=== PATIENT | female | born 1985 | race Caucasian/White ===

== ENCOUNTER → 2018-07-08 15:18 | Outpatient (CLI) | payer BC, SELFPAY ==
[2018-07-04 15:20] VITALS: BMI 37.3
[2018-07-10 16:50] LABS: HPV Reflexed? NOT INDICATED
== END ==
PROVIDERS: Visit Provider Obstetrics & Gynecology
DX: Z12.4 Encounter for screening for malignant neoplasm of cervix (principal)
CPT/HCPCS: 88175; G0145

== ENCOUNTER → 2019-12-15 21:15 | Outpatient (CLI) | payer BC, SELFPAY ==
[2019-12-15 18:57] VITALS: BMI 38.0
[2019-12-15 21:38] LABS: Absolute Lymphocyte Count 2.52 X10^3/uL (0.83-4.51); Absolute Neutrophil Count 3.1 X10^3/uL (2.0-7.7); Basophil# 0.03 X10^3/uL; Basophil% 0.5 % (0-1); Eosinophil# 0.16 X10^3/uL; Eosinophils% 2.5 % (0-5); Hematocrit 39.6 % (37-47); Hemoglobin 12.8 g/dL (12.0-15.0); Lymphocyte # 2.52 X10^3/ul (4.0); Lymphocyte % 39.9 % (19-41); Mean Corp Hgb Conc 32.3 g/dL (32-36); Mean Corpuscular Hgb 28.1 pg (27.0-32.0); Mean Platelet Vol. 10.2 fl (6.2-12.0); Monocyte# 0.53 X10^3/uL; Monocyte% 8.4 % (0-10); NRBC Flagged by Analyzer 0 % (0-5); Neutrophil # 3.05 X10^3/uL (2.7-7.7); Neutrophil % 48.4 % (47-70); Platelet Count 264 K/mm3 (150-450); RBC Distribution Width CV 12.3 % (11.6-14.6); RBC Distribution Width SD 38.8 fl (35.1-43.9); Red Blood Count 4.55 M/mm3 (4.2-5.4); White Blood Count 6.3 K/mm3 (4.4-11.0)
[2019-12-15 21:57] LABS: ALB/GLOB Ratio 1.1 RATIO (0.9-2.4); AST(SGOT) 13 U/L (15-37); Alanine Aminotransfer ALT/SGPT 26 U/L (13-56); Albumin, Serum 3.9 g/dL (3.2-5.0); Alkaline Phosphatase 62 U/L (45-117); Anion Gap 5 (5-15); BUN 11 mg/dL (7-18); Calcium,Total 9.1 mg/dL (8.5-10.1); Chloride 103 mmol/L (98-107); Creatinine, Serum 0.74 mg/dL (0.55-1.02); EST Glomerular Filtration Rate 97 mL/min (>60); Est Glom Filt Rate - Afr Amer 117 mL/min (>60); Globulin 3.4 g/dL (2.2-4.2); Glucose 87 mg/dL (74-106); Potassium 3.7 mmol/L (3.5-5.1); Protein, Total 7.3 g/dL (6.4-8.2); Sodium Level 138 mmol/L (136-145); Thyroid Stim Hormone (TSH) 1.67 uIU/mL (0.358-3.74)
== END ==
PROVIDERS: Visit Provider Nurse Practitioner
DX: R53.83 Other fatigue (principal); D51.9 Vitamin B12 deficiency anemia, unspecified; D64.9 Anemia, unspecified
CPT/HCPCS: 80053; 84443; 85025

== ENCOUNTER → 2020-06-01 13:19 | Outpatient (CLI) | payer BC, SELFPAY ==
[2020-06-04 21:03] LABS: HPV Reflexed? NOT INDICATED
== END ==
PROVIDERS: Visit Provider Obstetrics & Gynecology
DX: Z12.4 Encounter for screening for malignant neoplasm of cervix (principal)
CPT/HCPCS: 88175; G0145

== ENCOUNTER → 2022-03-29 | Outpatient (CLI) | payer OTHER, SELFPAY ==
[2022-03-29 22:47] LABS: Thyroid Stim Hormone (TSH) 1.34 uIU/mL (0.358-3.74)
[2022-03-31 16:28] LABS: EBV Acute VCA IgM < 36.0 U/mL (0.0-35.9); EBV-VCA IgG 57.4 U/mL (0.0-17.9)
== END | disposition home or self-care (01) ==
PROVIDERS: Visit Provider Nurse Practitioner
DX: H66.92 Otitis media, unspecified, left ear (principal); R13.10 Dysphagia, unspecified; R53.83 Other fatigue
CPT/HCPCS: 84443; 86664; 86665

== ENCOUNTER → 2023-03-14 | Outpatient (CLI) | payer OTHER, SELFPAY ==
--- OUTSIDE RECORDS SUMMARY | 2023-03-14 22:35 | XMS RPT_ITS | CCD ---
Author Name Unknown Address [address] [facility] [address] [place] [address] Organization [facility] Care Team Providers Care Manager Business Process Name Role Phone Mushtaq Rodríguez Unavailable Unavailable Martínez, Christen L Unavailable Unavailable Marky Mccord DO Primary Care Provider Unavail able Martínez, Christen Primary Care Provider Martínez, Christen Primary Care Provider Martínez, Christen Primary Care Unavailable Oz Salinas Attending Unavailable PROVIDER, UNKNOWN Referring Unavailable Martínez, Christen Primary Care Unavailable Tg Quinones Attending Unavailable PROVIDER, UNKNOWN Referring Unavailable PROVIDER, UNKNOWN Referring Unavailable Martínez, Christen Primary Care Unavailable CestaTalisha Attending Unavailable Martínez, Christen Primary Care Unavailable Cesta, Talisha Attending Unavailable PROVIDER, UNKNOWN Referring Unavailable PROVIDER, UNKNOWN Referring Unavailable Martínez, Christen Primary Care Unavailable Oz Salinas Attending Unavailable Martínez, Christen Primary Care Unavailable Amarilis Loya Attending Unavailable PROVIDER, UNKNOWN Referring Unavailable Martínez, Christen Primary Care Provider Martínez FAMILY LAWYER.Christen SWANSON Primary Care Provide r PROVIDER, UNKNOWN Referring Unavailable Cesta, Talisha Attending Unavailable Martínez, Christen Primary Care Unavailable PROVIDER, UNKNOWN Referring Unavailable STACIETG Herrera Attending Unavail able Martínez, Christen Primary Care Unavailable PROVIDER, UNKNOWN Referring Unavailable STACIETG Herrera Attending Unavail able Martínez, Christen Primary Care Unavailable PROVIDER, UNKNOWN Referring Unavailable Martínez, Christen Primary Care Unavailable Amarilis Loya Attending Unavailable PROVIDER, UNKNOWN Referring Unavailable STACIETG Attending Unavail able Martínez, Christen Primary Care Unavailable Martínez FAMILY [facility] Provide r PROVIDER, UNKNOWN Attending Unavailable PROVIDER, UNKNOWN Admitting Unavailable MARTÍNEZ, CHRISTEN Referring Unavailable Martínez, Christen Primary Care Provider Tg Quinones DO Unavailable Martínez, Christen Primary Care Provider [phone] Jessica Quinones DOth A Unavailable [phone] MARTÍNEZ, CHRISTEN L Primary Care Unavailable MARTÍNEZ, CHRISTEN L Primary Care Unavailable MARTÍNEZ, CHRISTEN L Primary Care Unavailable MARTÍNEZ, CHRISTEN Primary Care Unavailable GERJENNY ELIZABETH Attending Unavailable MARTÍNEZ, CHRISTEN Primary Care Unavailable GERJENNY ELIZABETH Attending Unavailable MARTÍNEZ, CHRISTEN Primary Care Unavailable JENNY LITTLEJOHN Attending Unavailable MARTÍNEZ, CHRISTEN Primary Care Unavailable JENNY LITTLEJOHN Attending Unavailable JEAN CLAUDERIJENNY ALMANZA Admitting Unavailable ESTHELA MEGHAN Referring Unavailable ANGELIC PROCTORIN Attending Unavailable MARTÍNEZ, CHRISTEN Primary Care Unavailable JENNY LITTLEJOHN Attending Unavailable MARTÍNEZ, CHRISTEN Primary Care Unavailable HELENA MAYBERRY Attending Unavailable FUNK, MARY ANN Referring Unavailable CESTA, TALISHA Referring Unavailable MARTÍNEZ, CHRISTEN Primary Care Unavailable JENNY LITTLEJOHN Attending Unavailable EDEN DELACRUZ Referring Unavailabl e JENNY LITTLEJOHN Referring Unavailable MARTÍNEZ, CHRISTEN Primary Care Unavailable GERJENNY ELIZABETH Attending Unavailable MARTÍNEZ, CHRISTEN Primary Care Unavailable GERJENNY ELIZABETH Attending Unavailable MARTÍNEZ, CHRISTEN Primary Care Unavailable TG QUINONES Attending Unavailable EDEN DELACRUZ Attending Unavailabl e MARTÍNEZ, CHRISTEN Primary Care Unavailable GERRIJENNY ALMANZA Attending Unavailable FUNK, MARY ANN Referring Unavailable MARTÍNEZ, CHRISTEN Primary Care Unavailable FUNK, MARY ANN Attending Unavailable FUNK, MARY ANN Attending Unavailable MARTÍNEZ, CHRISTEN Primary Care Unavailable FUNK, MARY ANN Referring Unavailable MARTÍNEZ, CHRISTEN Primary Care Unavailable FUNK, MARY ANN Attending Unavailable FUNK, MARY ANN Referring Unavailable MARTÍNEZ, CHRISTEN Primary Care Unavailable FUNK, MARY ANN Attending Unavailable MARTÍNEZ, CHRISTEN Primary Care Unavailable NJ GUIDRY Attending Unavailable TOBIN SKY Attending Unavailable FUNK, MARY ANN Referring Unavailable FUNK, MARY ANN Attending Unavailable MARTÍNEZ, CHRISTEN Primary Care Unavailable FUNK, MARY ANN Attending Unavailable MARTÍNEZ, CHRISTEN Primary Care Unavailable FUNK, MARY ANN Referring Unavailable JENNY LITTLEJOHN Attending Unavailable MARTÍNEZ, CHRISTEN Primary Care Unavailable EDEN DELACRUZ Referring Unavailabl e FUNK, MARY ANN Attending Unavailable MARTÍNEZ, CHRISTEN Primary Care Unavailable FUNK, MARY ANN Referring Unavailable MARTÍNEZ, CHRISTEN Primary Care Unavailable FUNK, MARY ANN Attending Unavailable Allergies Allergy Classification Reported Allergen(s) Allergy Type Date of Onset Reaction(s) Facility Quinolones (antibiotic) (1 source) levoFLOXacin Drug Allergy 01-15-20 19 Other (See Comments) [facility] (20 sources) levoFLOXacin; Translations: [LEVOFLOXACIN] Drug Allergy 01-15-20 Other (See Comments), Other: See Comments [facility] (20 sources) Verapamil Drug Allergy 06-30-19 Rash [facility] (15 sources) galcanezumab Drug Allergy 03-31-19 22 [facility] (15 sources) Sulfamethoxazole Drug Allergy 11-19-19 [facility] Work Phone: (20 sources) Trimethoprim Drug Allergy 11-19-19 [facility] Work Phone: (3 sources) predniSONE; Translations: [PREDNISONE] Drug Allergy 01-15-20 19 Hives, Other: See Comments [facility] (20 sources) Prednisone Propensity to adverse reactions 01-15-20 19 Hives [facility] (20 sources) Sulfamethoxazole Propensity to adverse reactions 11-19-19 [facility] (20 sources) Galcanezumab Propensity to adverse reactions 03-31-19 [facility] (14 sources) Clarithromycin Allergy to substance 06-02-19 23 [facility] (14 sources) SUMAtriptan Drug Allergy 06-05-19 21 [facility] (14 sources) Galcanezumab-Gnlm Drug Allergy 03-31-19 [facility] Medications Current Medications Medication Drug Class(es) Dates Sig (Normalized) Sig (Original) acetaminophen 325 mg / HYDROcodone bitartrate 5 mg oral tablet (1 source) Opioid Agonist Start: 12-19-2020 End: 12-24-2020 HYDROcodone-aceta minophen (NORCO) 5-325 MG per tablet Indications: Kidney stone Take 1 tablet by mouth every 6 hours as needed for Pain for up to 5 days. Intended supply: 3 days. Take lowest dose possible to manage pain 24 tablet 0 12/19/2020 12/24/2020 Active acetaminophen 325 mg / oxyCODONE hydrochloride 5 mg oral tablet (6 sources) Opioid Agonist Start: 01-09-2023 End: 01-20-2023 take 1 tablet by mouth every six hours as needed for pain oxyCODONE-acetami nophen (Percocet) 5-325 MG tablet Indications: Post-op pain Take 1 tablet by mouth every 6 hours as needed for severe pain (7-10) for up to 5 days. 15 tablet 0 01/15/2023 01/20/2023 Active Completed/Discontinued Medications Medication Drug Class(es) Dates Sig (Normalized) Sig (Original) acetaminophen 500 mg oral tablet (3 sources) Start: 01-09-2023 End: 01-09-2023 acetaminophen (Tylenol) tablet 1,000 mg Problems Active Problems Problem Classification Problem Date Documented Da te Episodic/Chronic Allergic reactions (5 sources) Anaphylaxis; Translations: [Anaphylactic shock, unspecified, initial encounter] Onset: 10-19-2021 Episodic Anxiety disorders (2 sources) Anxiety disorder, unspecified; Translations: [Anxiety disorder, unspecified] Onset: 10-12-2021 Chronic Asthma (2 sources) Unspecified asthma, uncomplicated; Translations: [Unspecified asthma, uncomplicated] Onset: 10-19-2021 Chronic Endometriosis (20 sources) Endometriosis (clinical); Translations: [Endometriosis, unspecified] Onset: 07-07-2021 07-07-2021 Chronic Genitourinary congenital anomalies (20 sources) Double ureter; 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] Onset: 10-05-2014 10-05-2014 Chronic Genitourinary symptoms and ill-defined conditions (4 sources) Urgency of urination; Translations: [Dysuria] Onset: 11-09-2021 Episodic Headache; including migraine (2 sources) Migraine, unspecified, not intractable, without status migrainosus; Translations: [Migraine, unsp, not intractable, without status migrainosus] Onset: 10-19-2021 Chronic Lymphadenitis (1 source) Generalized enlarged lymph nodes; Translations: [Generalized enlarged lymph nodes] Onset: 04-27-2022 Episodic Mood disorders (2 sources) Major depressive disorder, single episode, unspecified; Translations: [Major depressive disorder, single episode, unspecified] Onset: 10-12-2021 Chronic Mood disorders (2 sources) Mood disorders; Translations: [Depression, unspecified] Onset: 10-19-2021 Nausea and vomiting (11 sources) Postoperative nausea and vomiting; Translations: [Nausea with vomiting, unspecified] Onset: 01-01-2023 01-01-2023 Episodic Other aftercare (3 sources) Surgical follow-up; Translations: [Encounter for follow-up examination after completed treatment for conditions other than malignant neoplasm] 01-16-2023 Episodic Other aftercare (2 sources) Encounter for follow-up examination after completed treatment for conditions other than malignant neoplasm; Translations: [Encounter for follow-up examination after completed treatment for conditions other than malignant neoplasm] Onset: 02-13-2023 Episodic Other gastrointestinal disorders (1 source) Dysphagia, unspecified; Translations: [Dysphagia, unspecified] Onset: 04-27-2022 Episodic Other liver diseases (2 sources) Lesion of liver; Translations: [Liver disease, unspecified] Chronic Other liver diseases (4 sources) Liver disease, unspecified; Translations: [Liver disease, unspecified] Onset: 08-08-2021 Chronic Other liver diseases (2 sources) Fatty (change of) liver, not elsewhere classified; Translations: [Fatty (change of) liver, not elsewhere classified] Onset: 10-19-2021 Chronic Other liver diseases (2 sources) Hepatomegaly, not elsewhere classified; Translations: [Hepatomegaly, not elsewhere classified] Onset: 10-12-2021 Episodic Other nervous system disorders (3 sources) Postoperative pain ; Translations: [Other acute postprocedural pain] 01-09-2023 Episodic Other nervous system disorders (2 sources) Other acute postprocedural pain; Translations: [Other acute postprocedural pain] Onset: 01-09-2023 Episodic Other nutritional; endocrine; and metabolic disorders (20 sources) Body mass index 40+ - severely obese; Translations: [Body mass index (BMI) 40.0-44.9, adult] Onset: 10-05-2014 10-05-2014 Chronic Other nutritional; endocrine; and metabolic disorders (2 sources) Obesity, unspecified; Translations: [Obesity, unspecified] Onset: 10-19-2021 Chronic Other nutritional; endocrine; and metabolic disorders (2 sources) Body mass index (BMI) 39.0-39.9, adult; Translations: [Body mass index [BMI] 39.0-39.9, adult] Onset: 10-19-2021 Chronic Other nutritional; endocrine; and metabolic disorders (12 sources) Body mass index 30+ - obesity; Translations: [Body mass index (BMI) 38.0-38.9, adult] Onset: 10-05-2014 01-01-2023 Chronic Other upper respiratory disease (6 sources) Deviated nasal septum; Translations: [Deviated nasal septum] Onset: 01-09-2023 Episodic Other upper respiratory disease (5 sources) Hypertrophy of nasal turbinates; Translations: [Hypertrophy of nasal turbinates] Episodic Other upper respiratory disease (3 sources) Polyp of nasal cavity and/or nasal sinus; Translations: [Nasal polyp, unspecified] 11-16-2022 Episodic Other upper respiratory disease (1 source) Nasal mucosa dry; Translations: [Other specified disorders of nose and nasal sinuses] 02-13-2023 Episodic Other upper respiratory disease (2 sources) Other specified disorders of nose and nasal sinuses; Translations: [Other specified disorders of nose and nasal sinuses] Onset: 02-13-2023 Episodic Other upper respiratory disease (2 sources) Nasal polyp, unspecified; Translations: [Nasal polyp, unspecified] Onset: 01-09-2023 Episodic Other upper respiratory disease (2 sources) Hypertrophy of nasal turbinates; Translations: [Hypertrophy of nasal turbinates] Onset: 01-09-2023 Episodic Other upper respiratory disease (1 source) Deviated nasal septum; Translations: [Deviated nasal septum] Onset: 01-09-2023 Episodic Other upper respiratory infections (5 sources) Chronic maxillary sinusitis; Translations: [Chronic maxillary sinusitis] Onset: 01-09-2023 11-16-2022 Chronic Ovarian cyst (3 sources) Cyst of left ovary; Translations: [Unspecified ovarian cyst, left side] Onset: 12-05-2021 Episodic Poisoning by nonmedicinal substances (1 source) Bee sting; Translations: [Toxic effect of venom of bees, undetermined, initial encounter] Episodic Residual codes; unclassified (2 sources) Family history of ischemic heart disease and other diseases of the circulatory system; Translations: [Family hx of ischem heart dis and oth dis of the [facility]] Onset: 10-19-2021 Episodic Residual codes; unclassified (2 sources) Family history of diabetes mellitus; Translations: [Family history of diabetes mellitus] Onset: 10-19-2021 Episodic Residual codes; unclassified (2 sources) Family history of malignant neoplasm of other organs or systems; Translations: [Family history of malignant neoplasm of organs or systems] Onset: 10-19-2021 Episodic Residual codes; unclassified (1 source) History of drug therapy; Translations: [Personal history of other drug therapy] Episodic Unclassified (2 sources) New Patient; Translations: [New Patient] Onset: 06-20-2022 Past or Other Problems Problem Classification Problem Date Documented Da te Episodic/Chronic Abdominal pain (20 sources) Flank pain; Translations: [Unspecified abdominal pain] Onset: 01-03-2021 01-03-2021 Episodic Calculus of urinary tract (20 sources) Kidney stone; Translations: [Calculus of kidney] Onset: 01-03-2021 Episodic Gastritis and duodenitis (3 sources) Acute gastritis; Translations: [Acute gastritis without bleeding] Onset: 06-22-2022 Episodic Other and unspecified benign neoplasm (2 sources) Hemangioma of intra-abdominal structures; Translations: [Hemangioma of intra-abdominal structures] Onset: 09-13-2021 Episodic Other complications of (20 sources) Backache; Translations: [Back pain in ] Onset: 09-23-2014 09-23-2014 Episodic Other complications of (20 sources) depression; Translations: [Other mental disorders complicating the puerperium] Onset: 12-07-2014 12-07-2014 Episodic Other diseases of kidney and ureters (20 sources) Hydronephrosis; Translations: [Hydronephrosis with renal and ureteral calculous obstruction] Onset: 01-03-2021 Episodic Other diseases of kidney and ureters (12 sources) Hydronephrosis with renal and ureteral calculous obstruction; Translations: [Calculus of ureter] Onset: 01-03-2021 12-29-2021 Episodic Other diseases of kidney and ureters (2 sources) Unspecified hydronephrosis; Translations: [Unspecified hydronephrosis] Onset: 02-20-2022 Episodic Other gastrointestinal disorders (20 sources) Constipation; Translations: [Constipation, unspecified] Onset: 07-07-2021 07-07-2021 Episodic Other liver diseases (20 sources) Liver mass; Translations: [Hepatomegaly, not elsewhere classified] Onset: 10-19-2021 Episodic Other and delivery including normal (20 sources) Normal ; Translations: [Encounter for supervision of other normal , unspecified trimester] Onset: 09-23-2014 01-17-2015 Episodic Other screening for suspected conditions (not mental disorders or infectious disease) (20 sources) Cancer cervix screening status; Translations: [Encounter for screening for malignant neoplasm of cervix] Onset: 06-29-2022 Episodic Other upper respiratory infections (9 sources) Acute sinusitis; Translations: [Upper respiratory infection] Onset: 07-17-2022 Episodic Results Test Name Value Interpretation Reference Range Facil ity Vital Signs Date Time Vital Sign Value Performing Clinician Facility 02-13-2023 13:51-0500 Body height 160 cm Jenny Littlejohn MD Work Phone: [facility] 02-13-2023 13:51-0500 Body mass index (BMI) [Ratio] 35.96 kg/m2 Jenny Littlejohn MD Work Phone: [facility] 02-13-2023 13:51-0500 Body weight 92.08 kg Jenny Littlejohn MD Work Phone: [facility] 01-23-2023 10:34-0500 Body height 160 cm Jenny Littlejohn MD Work Phone: [facility] 01-23-2023 10:34-0500 Body mass index (BMI) [Ratio] 35.96 kg/m2 Jenny Littlejohn MD Work Phone: [facility] 01-23-2023 10:34-0500 Body weight 92.08 kg Jenny Littlejohn MD Work Phone: [facility] 01-16-2023 11:19-0400 Body height 160 cm Jenny Littlejohn MD Work Phone: [facility] 01-16-2023 11:19-0400 Body mass index (BMI) [Ratio] 35.96 kg/m2 Jenny Littlejohn MD Work Phone: [facility] 01-16-2023 11:19-0400 Body weight 92.08 kg Jenny Littlejohn MD Work Phone: [facility] 01-09-2023 12:15-0400 Diastolic blood pressure 81 mm[Hg] Jenny Litteljohn MD Work Phone: [facility] 01-09-2023 12:15-0400 Heart rate 68 /min Jenny Littlejohn MD Work Phone: [facility] 01-09-2023 12:15-0400 SaO2% (BldA) [Mass fraction] 100 % Jenny Littlejohn MD Work Phone: [facility] 01-09-2023 12:15-0400 Systolic blood pressure 136 mm[Hg] Jenny Littlejohn MD Work Phone: [facility] 01-09-2023 08:43-0400 Body height 160 cm Jenny Littlejohn MD Work Phone: [facility] 01-09-2023 08:43-0400 Body mass index (BMI) [Ratio] 38.97 kg/m2 Jenny Littlejohn MD Work Phone: [facility] 01-09-2023 08:43-0400 Body temperature 96.8 [degF] Jenny Littlejohn MD Work Phone: [facility] 01-09-2023 08:43-0400 Body weight 99.79 kg Jenny Littlejohn MD Work Phone: [facility] 01-09-2023 08:43-0400 Respiratory rate 17 /min Jenny Littlejohn MD Work Phone: [facility] 01-01-2023 09:33-0400 Body height 160 cm Mary Ann Burke PA Work Phone: [facility] 01-01-2023 09:33-0400 Body mass index (BMI) [Ratio] 38.92 kg/m2 Mary Ann Burke PA Work Phone: [facility] 01-01-2023 09:33-0400 Body weight 99.66 kg Mary Ann Burke PA Work Phone: [facility] 01-01-2023 09:33-0400 Diastolic blood pressure 81 mm[Hg] Mary Ann Burke PA Work Phone: [facility] 01-01-2023 09:33-0400 Heart rate 96 /min Mary Ann Burke PA Work Phone: [facility] 01-01-2023 09:33-0400 Systolic blood pressure 121 mm[Hg] Mary Ann Burke PA Work Phone: [facility] 11-16-2022 11:37-0400 Body height 160 cm Jenny Littlejohn MD Work Phone: [facility] 11-16-2022 11:37-0400 Body mass index (BMI) [Ratio] 38.95 kg/m2 Jenny Littlejohn MD Work Phone: [facility] 11-16-2022 11:37-0400 Body weight 99.75 kg Jenny Littlejohn MD Work Phone: [facility] 09-07-2022 10:30-0400 Body height 160 cm Jenny Littlejohn MD Work Phone: [facility] 09-07-2022 10:30-0400 Body mass index (BMI) [Ratio] 38.79 kg/m2 Jenny Littlejohn MD Work Phone: [facility] 09-07-2022 10:30-0400 Body weight 99.34 kg Jenny Littlejohn MD Work Phone: [facility] 06-29-2022 10:09-0400 Body height 160 cm Mary Ann Burke PA Work Phone: [facility] 06-29-2022 10:09-0400 Body mass index (BMI) [Ratio] 40.57 kg/m2 Mary Ann Burke PA Work Phone: [facility] 06-29-2022 10:09-0400 Body weight 103.87 kg Mary Ann Burke PA Work Phone: [facility] 06-29-2022 10:09-0400 Diastolic blood pressure 85 mm[Hg] Mary Ann Burke PA Work Phone: [facility] 06-29-2022 10:09-0400 Heart rate 77 /min Mary Ann Burke PA Work Phone: [facility] 06-29-2022 10:09-0400 Systolic blood pressure 118 mm[Hg] Mary Ann Burke PA Work Phone: [facility] 06-22-2022 10:32-0400 Diastolic blood pressure 68 mm[Hg] Nj Mudrakola DO Work Phone: [facility] 06-22-2022 10:32-0400 Heart rate 81 /min Nj Mudrakola DO Work Phone: [facility] 06-22-2022 10:32-0400 SaO2% (BldA) [Mass fraction] 100 % Nj Mudrakola DO Work Phone: [facility] 06-22-2022 10:32-0400 Systolic blood pressure 111 mm[Hg] Nj Mudrakola DO Work Phone: [facility] 06-22-2022 09:00-0400 Body height 160 cm Nj Mudrakola DO Work Phone: [facility] 06-22-2022 09:00-0400 Body mass index (BMI) [Ratio] 40.57 kg/m2 Nj Mudrakola DO Work Phone: [facility] 06-22-2022 09:00-0400 Body temperature 97.39 [degF] Nj Mudrakola DO Work Phone: [facility] 06-22-2022 09:00-0400 Body weight 103.87 kg Nj Mudrakola DO Work Phone: [facility] 06-22-2022 09:00-0400 Respiratory rate 16 /min Nj Mudrakola DO Work Phone: [facility] 06-20-2022 09:57-0400 Body height 160 cm Jenny Littlejohn MD Work Phone: [facility] 06-20-2022 09:57-0400 Body mass index (BMI) [Ratio] 40.57 kg/m2 Jenny Littlejohn MD Work Phone: [facility] 06-20-2022 09:57-0400 Body weight 103.87 kg Jenny Littlejohn MD Work Phone: [facility] 03-26-2022 09:34-0500 Body height 160 cm Barbie Slabaugh PA-C Work Phone: [facility] 03-26-2022 09:34-0500 Body temperature 98.01 [degF] Barbie Slabaugh PA-C Work Phone: [facility] 03-26-2022 09:34-0500 Body weight 104.33 kg Barbie Slabaugh PA-C Work Phone: [facility] 03-26-2022 09:34-0500 Diastolic blood pressure 78 mm[Hg] Barbie Slabaugh PA-C Work Phone: [facility] 03-26-2022 09:34-0500 Heart rate 89 /min Barbie Slabaugh PA-C Work Phone: [facility] 03-26-2022 09:34-0500 Respiratory rate 16 /min Barbie Slabaugh PA-C Work Phone: [facility] 03-26-2022 09:34-0500 SaO2% (BldA) [Mass fraction] 97 % Barbie Slabaugh PA-C Work Phone: [facility] 03-26-2022 09:34-0500 Systolic blood pressure 125 mm[Hg] Barbie Slabaugh PA-C Work Phone: [facility] 01-05-2022 10:42-0400 Body height 160 cm Hilda Tsai APRN.CNP Work Phone: [facility] 01-05-2022 10:42-0400 Body temperature 97.5 [degF] Hilda Tsai FAMILY LAWYER.TREATMENT SPECIALIST Work Phone: [facility] 01-05-2022 10:42-0400 Body weight 101.15 kg Hilda Tsai FAMILY LAWYER.TREATMENT SPECIALIST Work Phone: [facility] 01-05-2022 10:42-0400 Diastolic blood pressure 72 mm[Hg] Hilda Tsai FAMILY LAWYER.TREATMENT SPECIALIST Work Phone: [facility] 01-05-2022 10:42-0400 Heart rate 89 /min Hilda Tsai FAMILY LAWYER.TREATMENT SPECIALIST Work Phone: [facility] 01-05-2022 10:42-0400 Respiratory rate 16 /min Hilda Tsai FAMILY LAWYER.TREATMENT SPECIALIST Work Phone: [facility] 01-05-2022 10:42-0400 SaO2% (BldA) [Mass fraction] 97 % Hilda Tsai FAMILY LAWYER.TREATMENT SPECIALIST Work Phone: [facility] 01-05-2022 10:42-0400 Systolic blood pressure 115 mm[Hg] Hilda Tsai FAMILY LAWYER.TREATMENT SPECIALIST Work Phone: [facility] 10-19-2021 16:30-0400 Diastolic blood pressure 87 mm[Hg] Oz Salinas MD Work Phone: [facility] 10-19-2021 16:30-0400 Heart rate 72 /min Oz Salinas MD Work Phone: [facility] 10-19-2021 16:30-0400 Respiratory rate 20 /min Oz Salinas MD Work Phone: [facility] 10-19-2021 16:30-0400 SaO2% (BldA) [Mass fraction] 95 % Oz Salinas MD Work Phone: [facility] 10-19-2021 16:30-0400 Systolic blood pressure 118 mm[Hg] Oz Salinas MD Work Phone: [facility] 10-19-2021 10:49-0400 Body height 160 cm Oz Salinas MD Work Phone: [facility] 10-19-2021 10:49-0400 Body mass index (BMI) [Ratio] 39.33 kg/m2 Oz Salinas MD Work Phone: [facility] 10-19-2021 10:49-0400 Body temperature 98.2 [degF] Oz Salinas MD [facility]: [facility] [facility] 10-19-2021 10:49-0400 Body weight 100.7 kg Oz Salinas MD Work Phone: [facility] 10-12-2021 10:01-0400 Body temperature 97 [degF] Oz Salinas MD Work Phone: [facility] 10-12-2021 10:01-0400 Diastolic blood pressure 82 mm[Hg] Oz Salinas MD Work Phone: [facility] 10-12-2021 10:01-0400 Heart rate 90 /min Oz Salinas MD Work Phone: [facility] 10-12-2021 10:01-0400 SaO2% (BldA) [Mass fraction] 97 % Oz Salinas MD Work Phone: [facility] 10-12-2021 10:01-0400 Systolic blood pressure 105 mm[Hg] Oz Salinas MD Work Phone: [facility] 10-12-2021 09:45-0400 Body height 160 cm Oz Salinas MD Work Phone: [facility] 10-12-2021 09:45-0400 Body mass index (BMI) [Ratio] 39.33 kg/m2 Oz Salinas MD Work Phone: [facility] 10-12-2021 09:45-0400 Body weight 100.7 kg Oz Salinas MD Work Phone: [facility] 12-19-2020 05:20-0400 Diastolic blood pressure 57 mm[Hg] Rickey Bond MD Work Phone: [facility] Work Phone: 12-19-2020 05:20-0400 Heart rate 65 /min Rickey Bond MD Work Phone: [facility] Work Phone: 12-19-2020 05:20-0400 Respiratory rate 16 /min Rickey Bond MD Work Phone: [facility] Work Phone: 12-19-2020 05:20-0400 SaO2% (BldA) [Mass fraction] 100 % Rickey Bond MD Work Phone: [facility] Work Phone: 12-19-2020 05:20-0400 Systolic blood pressure 109 mm[Hg] Rickey Bond MD Work Phone: [facility] Work Phone: 12-19-2020 03:29-0400 Body temperature 98.29 [degF] Rickey Bond MD Work Phone: [facility] Work Phone: 10-06-2020 15:23-0400 Diastolic blood pressure 71 mm[Hg] Jonathan Julieta DO Work Phone: [facility] Work Phone: 10-06-2020 15:23-0400 Heart rate 100 /min Jonathan Julieta DO Work Phone: [facility] Work Phone: 10-06-2020 15:23-0400 Respiratory rate 12 /min Jonathan Julieta DO Work Phone: [facility] Work Phone: 10-06-2020 15:23-0400 SaO2% (BldA) [Mass fraction] 100 % Jonathan Julieta DO Work Phone: [facility] Work Phone: 10-06-2020 15:23-0400 Systolic blood pressure 132 mm[Hg] Jonathan Julieta DO Work Phone: [facility] Work Phone: 10-06-2020 13:36-0400 Body height 160 cm Jonathan Julieta DO Work Phone: [facility] Work Phone: 10-06-2020 13:36-0400 Body mass index (BMI) [Ratio] 37.2 kg/m2 Jonathan Julieta DO Work Phone: [facility] Work Phone: 10-06-2020 13:36-0400 Body temperature 98.1 [degF] Jonathan Julieta DO Work Phone: [facility] Work Phone: 10-06-2020 13:36-0400 Body weight 95.25 kg Jonathan Julieta DO Work Phone: [facility] Work Phone: 03-21-2019 11:20-0500 BMI (Body Mass Index) 38.44 kg/m2 Mushtaq Rod[facility]guez [facility] Work Phone: 03-21-2019 11:20-0500 Body Temperature 98.3 [degF] Mushtaq Rodríguez [facility] Work Phone: 03-21-2019 11:20-0500 Body weight 98.43 kg Mushtaqsobia Rodríguez [facility] Work Phone: 03-21-2019 11:20-0500 BP Diastolic 75 mm[Hg] Mushtaq Rodríguez [facility] Work Phone: 03-21-2019 11:20-0500 BP Systolic 110 mm[Hg] Mushtaq Rodríguez [facility] Work Phone: 03-21-2019 11:20-0500 BSA (Body Surface Area) 2 m2 Mushtaq Rodríguez [facility] Work Phone: 03-21-2019 11:20-0500 Height 160.02 cm Mushtaq Rodríguez [facility] Work Phone: 03-21-2019 11:20-0500 Pulse (Heart Rate) 95 /min Mushtaq Rodríguez [facility] Work Phone: 03-21-2019 11:20-0500 Pulse Oximetry 97 % Mushtaq Rodríguez [facility] Work Phone: 03-21-2019 11:20-0500 Respiratory Rate 16 /min Mushtaq Rodríguez [facility] Work Phone: 03-21-2019 11:20-0500 6 1 Mushtaq Rodríguez [facility] Work Phone: Encounters Encounter Date Encounter Type Care Provider Facility Start: 02-13-2023 End: 02-13-2023 ambulatory [facility] Start: 02-13-2023 End: 02-13-2023 Postop follow up visit related to original px Jenny Littlejohn MD Work Phone: [facility] Procedures Date Procedure Procedure Detail Performing Clinician Start: 01-16-2023 Follow-up visit Follow-up JENNY LITTLEJOHN Start: 01-09-2023 [place] AN ELECTIVE ENDOTRACHEAL AIRWAY Derek Min FAMILY LAW[employer]ER [employer] Work Phone: Start: 01-09-2023 Urine test visual color cmprsn meths Deon Slater FAMILY LAW[employer]ER [employer] CLOSING SPECIALIST Work Phone: Start: 08-07-2022 Microscopic observation [Identifier] in Cervix by Cyto stain Katelyn Coto PT Start: 07-17-2022 Ct maxillofacial w/o contrast material Jenny Littlejohn MD Work Phone: Start: 06-22-2022 Basic metabolic panel calcium total Nj Mudrakola DO Work Phone: Start: 06-22-2022 Urinalysis complete panel - Urine Nj Mudrakola DO Work Phone: Start: 06-22-2022 Urine test visual color cmprsn meths Nj Mudrakola DO Work Phone: Start: 06-22-2022 Urnls dip stick/tablet reagent auto microscopy Nj Guidry DO Work Phone: Start: 12-05-2021 Us transvaginal Talisha Estevez MD Work Phone: Start: 10-19-2021 CATHY STUDIO 3 Oz Salinas MD Work Phone: Start: 10-19-2021 Urine test visual color cmprsn meths Sivakumar Schmidt MD Work Phone: Start: 10-12-2021 Antibody screen Oz Salinas MD Work Phone: Start: 10-12-2021 Radiologic exam chest 2 views Jennifer Jonas FAMILY LAWYER - TREATMENT SPECIALIST Work Phone: Start: 10-12-2021 Ecg routine ecg w/least 12 lds w/i&r Jennifer Jonas FAMILY LAWYER - TREATMENT SPECIALIST Work Phone: Start: 10-12-2021 Blood count complete automated Jennifer Jonas FAMILY LAWYER - TREATMENT SPECIALIST Work Phone: Start: 10-12-2021 Blood typing serologic abo Jennifer Neena bess FAMILY LAWYER - TREATMENT SPECIALIST Work Phone: Start: 10-03-2021 Us transvaginal Talisha Estevez MD Work Phone: Start: 09-13-2021 Mri abdomen w/o & w/contrast material Amarilis Loya FAMILY LAWYER - TREATMENT SPECIALIST Work Phone: Start: 08-08-2021 Hepatic function panel Amarilis Loya AP RN - TREATMENT SPECIALIST Work Phone: Start: 08-01-2021 Ct abdomen & pelvis w/o contrast material Tg Quinones DO Work Phone: Start: 07-20-2021 Urnls dip stick/tablet rgnt auto w/o microscopy Tg Quinones DO Work Phone: Start: 07-18-2021 Radiologic exam abdomen 1 view Tg Quinones DO Work Phone: Start: 07-18-2021 Us retroperitoneal real time w/image complete Tg Quinones DO Work Phone: Start: 01-06-2021 Radiologic exam abdomen 1 view Tg Quinones DO Work Phone: Start: 01-06-2021 Us retroperitoneal real time w/image complete Tg Quinones DO Work Phone: Start: 12-19-2020 Ct abdomen & pelvis w/o contrast material Rickey Bond MD Work Phone: Start: 12-19-2020 Basic metabolic panel calcium total Rickey Bond MD Work Phone: Start: 12-19-2020 Urnls dip stick/tablet rgnt auto w/o microscopy Rickey Bond MD Work Phone: Start: 03-21-2019 Follow-up visit Start: 10-05-2014 End: 10-20-2014 H/O: section Previous delivery affecting , antepartum Jonathan Rendon DO Work Phone: Start: 01-09-2014 Microscopic observation [Identifier] in Cervix by Cyto stain Rickey Bond MD Work Phone: Plan of Treatment Date Care Activity Detail Author Start: 2047 RSV Immunization aged 60 or older (1 - 1-dose 60+ series) RSV Immunization aged 60 or older (1 - 1-dose 60+ series) [facility] Start: 2037 Zoster Vaccines (1 of 2) Zoster Vaccines (1 of 2) [facility] Start: 08-08-2027 Screening for malignant neoplasm of cervix [facility] Start: 08-07-2025 Screening for malignant neoplasm of cervix Pap Smear [facility] Start: 08-03-2024 DTaP/Tdap/Td vaccine (3 - Td or Tdap) DTaP/Tdap/Td vaccine (3 - Td or Tdap) [facility] Start: 08-03-2024 DTaP/Tdap/Td Vaccines (3 - Td or Tdap) DTaP/Tdap/Td Vaccines (3 - Td or Tdap) [facility] Start: 08-03-2024 Urine microalbumin profile DTAP,TDAP,TD (3 - Td or Tdap) [facility] Start: 08-23-2023 End: 08-23-2023 Patient encounter procedure 08/23/2023 9:00 AM EDT Office Visit [facility] [address] [place] [address] Helena Mayberry MD [address] [place] [address] [facility] Start: 08-09-2023 End: 08-09-2023 Patient encounter procedure [facility] Start: 07-23-2023 End: 07-23-2023 Patient encounter procedure [facility] [address] [facility] Start: 04-05-2023 End: 04-05-2023 Patient encounter procedure 04/05/2023 9:30 AM EST Office Visit [facility] [address] [place] [phone] Talisha Estevez MD [address] [place], [place] [id number] [facility] Start: 03-26-2023 End: 03-26-2023 Patient encounter procedure 03/26/2023 9:00 AM EST Office Visit [facility] [address] [place] [phone] Jenny Littlejohn MD [address] [place], [place] [id number] [facility] Start: 02-19-2023 End: 02-19-2023 Patient encounter procedure 02/19/2023 10:30 AM EST Office Visit [facility] [address] [place] [address] Jenny Littlejohn MD [address] [place], [place] [id number] [facility] Start: 02-13-2023 End: 02-13-2023 Patient encounter procedure 02/13/2023 2:00 PM EST Office Visit [facility] [address] [place] [phone] Jenny Littlejohn MD [address] [place], [place] [id number] [facility] Start: 02-07-2023 End: 02-07-2023 Patient encounter procedure 02/07/2023 9:10 AM EST Office Visit [facility] [address] [place] [address] Dami Rand MD [address] [place] [address] [facility] Start: 01-23-2023 End: 01-23-2023 Patient encounter procedure 01/23/2023 10:45 AM EST Office Visit [facility] [address] [place] [address] Jenny Littlejohn MD [address] [place], [place] [id number] [facility] Start: 01-16-2023 End: 01-16-2023 Patient encounter procedure 01/16/2023 11:15 AM EDT Office Visit [facility] [address] [place] [address] Jenny Littlejohn MD [address] [place], [place] [id number] [facility] Start: 01-11-2023 End: 01-11-2023 Patient encounter procedure 01/11/2023 11:00 AM EDT Office Visit [facility] [address] [place] [address] Jenny Littlejohn MD [address] [place] [address] [facility] Start: 01-09-2023 End: 01-09-2023 Admission to same day surgery center 01/09/2023 9:30 AM EDT - 01/09/2023 10:30 AM EDT Surgery [facility] [place] [address] [place] [address] Jenny Littlejohn MD [address] [place] [address] nasal septal reconstruction with bilateral inferior turbinate reduction; functional endoscopic sinus surgery maxillary, frontal, bundle nasal/sinus endocopy, total ethmoidectomy, sphenoidotomy removal from sphenoid sinus [48597 (CPT )] [facility] [place] Immunizations Immunization Date Immunization Notes Care Provider Fa cility 12-28-2021 influenza virus vacc ine, unspecified formulation Jenny Littlejohn MD Work Phone: [facility] 08-03-2014 tetanus toxoid, redu kandice diphtheria toxoid, and acellular pertussis vaccine, adsorbed Jonathan Rendon DO Work Phone: [facility] 02-11-2013 tetanus toxoid, redu kandice diphtheria toxoid, and acellular pertussis vaccine, adsorbed Hilda Tsai APRN.CNP Work Phone: [facility] Payers Date Payer Category Payer Unknown [id number] 2020 Unknown 2014 Unknown [facility] [id number] 2014-Present [phone] [address] [place] [address] [id number] 1987 Unknown [id number] 1987 Unknown [id number] [id number]. 1987 Unknown [id number] [id number]. 1987 Unknown [id number] [id number]. 1987 Unknown [id number] [id number]. 1987 Unknown [id number] [id number]. 1987 Unknown [id number] [id number]. 1987 Unknown [id number] [id number]. 1987 Unknown [id number] [id number]. 1987 Unknown [id number] [id number]. 1987 Unknown [id number] [id number] 1987 Unknown [id number] Social History Date Type Detail Facility Assertion Unknown if ever smoked [facility] Work Phone: Start: 10-06-2020 End: 07-13-2022 Tobacco smoking status GAIS Never smoker [facility] Work Phone: Start: 10-06-2020 End: 07-13-2022 Tobacco use and exposure Never used [facility] Start: 10-06-2020 End: 01-05-2022 Alcohol intake Current non-drinker of alcohol (finding) [facility] Work Phone: Start: 02-06-1986 Sex Assigned At Not on file [facility] Work Phone: Start: 06-27-2021 End: 07-17-2022 Exposure to SARS-CoV-2 (event) Not sure [facility] Start: 10-12-2021 End: 12-29-2021 Alcohol intake Current drinker of alcohol (finding) [facility] Work [facility]: Start: 10-12-2021 History SDOH Alcohol Comment rarely [facility] Work Phone: Start: 03-07-2022 End: 01-09-2023 Alcohol intake Ex-drinker (finding) [facility] Start: 08-07-2022 End: 02-13-2023 History of Social function [facility] Start: 08-07-2022 End: 02-13-2023 Tobacco use panel [facility] NEGATED: Highlighted rowStart: NINF History of tobacco use Passive smoker [facility] Functional Status Date Assessment Result Facility NEGATED: Highlighted row Functional performance Functional status health issues are not documented Disease [facility] Work Phone: Mental Status Date Assessment Result Facility NEGATED: Highlighted row Cognitive function [Interpretation] Cognitive status health issues are not documented Disease [facility] Work Phone: Clinical Notes 10-06-2020 to 02-13-2023 Addendum Note - JOANNE Quiroz CRNA - 02/13/2023 2:41 PM ESTAddendum Note - JOANNE Quiroz CRNA - 02/13/2023 2:41 PM Cesar Littlejohn MD - 02/13/2023 2:00 PM EST Note Date & Type Note Facility 02-13-2023 Note Addendum created 1441 by JOANNE Quiroz CRNA Intraprocedure Meds edited, Orders acknowledged in Narrator [facility] 02-13-2023 Note Formatting of this n ote is different from the original. Addendum created 02/13/23 1441 by JOANNE Quiroz CRNA Intraprocedure Meds edited, Orders acknowledged in Narrator [facility] 02-13-2023 Note Formatting of this n ote is different from the original. Addendum created 02/13/23 1441 by JOANNE Quiroz CRNA Intraprocedure Meds edited, Orders acknowledged in Narrator [facility] 02-13-2023 Miscellaneous Notes Addendum created 02/13/23 1441 by JOANNE Quiroz CRNA Intraprocedure Meds edited, Orders acknowledged in Narrator Patient: Joie Young Procedure Summary Date: 01/09/23 Room / Location: [place] [facility] Anesthesia Start: 904 Anesthesia Stop: 1031 Procedures: nasal septal reconstruction with bilateral inferior turbinate reduction; functional endoscopic sinus surgery maxillary, frontal, bundle nasal/sinus endocopy, total ethmoidectomy, sphenoidotomy removal from sphenoid sinus (Bilateral: Nose) SUBMUCOUS RESECTION INFERIOR TURBINATE (Bilateral: Nose) NASAL SINUS ENDOCOPY TOTAL INCLUDING SPHENOIDOTOMY WITH REMOVAL TISSUE FROM SPHENOID SINUS (Bilateral) Diagnosis: Chronic maxillary sinusitis Nasal polyp, unspecified Hypertrophy of nasal turbinates Deviated nasal septum (Chronic maxillary sinusitis [J32.0]) (Nasal polyp, unspecified [J33.9]) (Hypertrophy of nasal turbinates [J34.3]) (Deviated nasal septum [J34.2]) Surgeons: Jenny Littlejohn MD Responsible Provider: No Anesthesiologist - [facility]/MD Shaun Anesthesia Type: general, TIVA ASA Status: 3 Anesthesia Type: general, TIVA Vitals Value Taken Time BP 95/52 01/09/23 1032 Temp 97.5 01/09/23 1035 Pulse 63 01/09/23 1034 Resp 14 01/09/23 1035 SpO2 97 % 01/09/23 1034 Vitals shown include unfiled device data. Anesthesia Post Evaluation Patient location during evaluation: PACU Patient participation: complete - patient participated Level of consciousness: awake and alert Pain management: satisfactory to patient Airway patency: patent Dental Injury: no Cardiovascular status: acceptable, blood pressure returned to baseline and hemodynamically stable Respiratory status: acceptable and spontaneous ventilation Hydration status: euvolemic Nausea/Vomiting: controlled No notable events documented. Patient can be discharged once all PACU criteria has been met. documented in this encounter [facility] 02-13-2023 History of Presen t illness Narrative Assessment and Recommendations: Joie Young is a 37 y.o. female here for 1 month follow-up from endoscopic sinus surgery -Overall patient feeling well and pleased the result we will start her on topical antibiotic rinses to help alleviate her nasal dryness crusting all of her questions and concerns were answered today we will see her back in 6 weeks for follow-up Otol[facility] Clinic Note HPI: Joie Young is a 37 y.o. yo female who presents to clinic today for 4-week follow-up from endoscopic sinus surgery. Overall patient is doing well feels much better since surgery feels like she is having less facial pain and pressure is able to breathe well through her nose and denies any purulent drainage. No concerns today. PMH: Past Medical History: Diagnosis Date ADHD Asthma BMI 36.0-36.9,adult Depression Double ureter Left Endometriosis History of blood transfusion 2013 when she had daughter Liver mass Migraine Allergies: Allergies Allergen Reactions Clarithromycin Other reaction(s): N&V Galcanezumab Other reaction(s): rash and stomach aches for 48 hrs Sulfamethoxazole Other reaction(s): DIARRHEA AND HEADACHES Sumatriptan Other reaction(s): hung over, hung over Trimethoprim Other reaction(s): DIARRHEA AND HEADACHES Verapamil Rash Galcanezumab-Gnlm Levofloxacin Other reaction(s): Other (See Comments), Other (See Comments), Other: See Comments Leg swelling Prednisone Hives Able to take- just not in high doses Medications: Current Outpatient Medications: albuterol 0.63 MG/3ML nebulizer solution, 0.63 MG (3 mL) inhaled every 4 hours As Needed for shortness of breath or wheezing, Disp: , Rfl: albuterol 108 (90 Base) MCG/ACT inhaler, 2 PUFF INHALATION EVERY 4 HOURS As Needed for shortness OF breath or FOR WHEEZING, Disp: , Rfl: clonazePAM (KlonoPIN) 0.5 MG tablet, Take 0.5 mg by mouth every morning., Disp: , Rfl: EPINEPHrine (Epipen) 0.3 MG/0.3ML injection syringe, 0.3 mg (0.3 mL) intramuscularly once for allergic reactions; as a single dose; may repeat once, Disp: , Rfl: ketorolac (Sprix) nasal, Administer 1 spray into each nostril every 8 hours as needed for moderate pain (4-6)., Disp: 5 each, Rfl: 3 mometasone (Nasonex) 50 MCG/ACT nasal spray, Administer 2 sprays into each nostril 2 times daily., Disp: 17 g, Rfl: 11 Nurtec 75 MG tablet dispersible, 75 mg PO ONCE As Needed for migraine headache; may take everyother day for migriane, Disp: , Rfl: ondansetron (Zofran) 8 MG tablet, Take 8 mg by mouth in the morning and 8 mg in the evening., Disp: , Rfl: SEMAGLUTIDE,0.25 OR 0.5MG/DOS, SC, , Disp: , Rfl: Slynd 4 MG tablet, Take 1 tablet by mouth daily Take 1 active tablet daily, do not take placebo pills. Start taking next pack immediately., Disp: 28 tablet, Rfl: 11 famotidine (Pepcid) 20 MG tablet, Take 1 tablet (20 mg) by mouth 2 times daily for 15 days., Disp: 30 tablet, Rfl: 0 sertraline (Zoloft) 100 MG tablet, Take 50 mg by mouth daily., Disp: , Rfl: PSH: Past Surgical History: Procedure Laterality Date SECTION (HISTORICAL) 04/19/2013 Dr. Boggs SECTION, LOW TRANSVERSE 10/14/2013 Dr Vanessa LAPAROSCOPY DIAGNOSTIC / BIOPSY / ASPIRATION / LYSIS x3 For endometriosis OVARIAN CYST REMOVAL Bilateral 03/19/2004 TONSILLECTOMY (HISTORICAL) FH: Family History Problem Relation Name Age of Onset Hypertension Father Cancer Maternal Grandfather blood cancer Diabetes Father Colon cancer Neg Hx SH: Social History Socioeconomic History Marital status: Spouse name: Not on file Number of children: Not on file Years of education: Not on file Highest education level: Not on file Occupational History Not on file Tobacco Use Smoking status: Never Passive exposure: Never Smokeless tobacco: Never Vaping Use Vaping Use: Never used Substance and Sexual Activity Alcohol use: Not Currently Drug use: No Sexual activity: Yes control/protection: OCP Other Topics Concern Not on file Social History Narrative Not on file Social Determinants of Health Financial Resource Strain: Not on file Food Insecurity: Not on file Transportation Needs: Not on file Physical Activity: Not on file Stress: Not on file Social Connections: Not on file Intimate Partner Violence: Not on file Housing Stability: Not on file Physical Exam: Constitutional: General: Patient is not in acute distress. Appearance: Patient is well-developed. Eyes: Conjunctiva/sclera: Conjunctivae normal. Pupils: Pupils are equal, round, and reactive to light. HENT: Jaw: No trismus. Nose: No nasal deformity, mucosal edema or rhinorrhea. Mouth: Mucous membranes are not pale, not dry and not cyanotic. No oral lesions. Pharynx: Uvula midline. No oropharyngeal exudate or uvula swelling. Tonsils: No tonsillar exudate. No abnormal masses or lesions Thyroid: No significant thyromegaly. Trachea: Trachea and phonation normal. No tracheal deviation. Pulmonary: Effort: Pulmonary effort is normal. No respiratory distress. Breath sounds: No stridor. Musculoskeletal: Head: Normocephalic and atraumatic. Neck: Full passive range of motion without pain, neck supple. Skin: General: Skin is warm and dry. Findings: No erythema or rash. Neurological: Cranial Nerves: No cranial nerve deficit. Sensory: No sensory deficit. Coordination: Coordination normal. Extremities: No significant peripheral edema or varicosities Psychiatric: Mood and Affect: Mood and affect normal. Cognition and Memory: Cognition and memory normal. Flexible nasal endoscopy form revealing well-healed postsurgical sinonasal cavities with some crusting in the anterior nasal cavity bilaterally no signs of any infection documented in this encounter [facility] 01-23-2023 History of Presen t illness Narrative Assessment and Recommendations: Joie Chaw is a 37 y.o. female here for 2-week follow-up from endoscopic sinus surgery Patient is healing well and pleased the result-we will follow-up in 4 weeks all of her question concerns were answered and she expressed understanding Otolaryngology Head and Neck Surgery Clinic Note HPI: Joie Young is a 37 y.o. yo female who presents to clinic today for 2 week follow-up from [facility]. Patient is doing much better than the first week she does endorse she is able to breathe through her nose still having some pressure on the right side but overall it is getting much better. No other concerns or questions today PMH: Past Medical History: Diagnosis Date ADHD Asthma BMI 36.0-36.9,adult Depression Double ureter Left Endometriosis History of blood transfusion 2013 when she had daughter Liver mass Migraine Allergies: Allergies Allergen Reactions Clarithromycin Other reaction(s): N&V Galcanezumab Other reaction(s): rash and stomach aches for 48 hrs Sulfamethoxazole Other reaction(s): DIARRHEA AND HEADACHES Sumatriptan Other reaction(s): hung over, hung over Trimethoprim Other reaction(s): DIARRHEA AND HEADACHES Verapamil Rash Galcanezumab-Gnlm Levofloxacin Other reaction(s): Other (See Comments), Other (See Comments), Other: See Comments Leg swelling Prednisone Hives Able to take- just not in high doses Medications: Current Outpatient Medications: albuterol 0.63 MG/3ML nebulizer solution, 0.63 MG (3 mL) inhaled every 4 hours As Needed for shortness of breath or wheezing, Disp: , Rfl: albuterol 108 (90 Base) MCG/ACT inhaler, 2 PUFF INHALATION EVERY 4 HOURS As Needed for shortness OF breath or FOR WHEEZING, Disp: , Rfl: clonazePAM (KlonoPIN) 0.5 MG tablet, Take 0.5 mg by mouth every morning., Disp: , Rfl: EPINEPHrine (Epipen) 0.3 MG/0.3ML injection syringe, 0.3 mg (0.3 mL) intramuscularly once for allergic reactions; as a single dose; may repeat once, Disp: , Rfl: ketorolac (Sprix) nasal, Administer 1 spray into each nostril every 8 hours as needed for moderate pain (4-6)., Disp: 5 each, Rfl: 3 mometasone (Nasonex) 50 MCG/ACT nasal spray, Administer 2 sprays into each nostril 2 times daily., Disp: 17 g, Rfl: 11 Nurtec 75 MG tablet dispersible, 75 mg PO ONCE As Needed for migraine headache; may take everyother day for migriane, Disp: , Rfl: ondansetron (Zofran) 8 MG tablet, Take 8 mg by mouth in the morning and 8 mg in the evening., Disp: , Rfl: SEMAGLUTIDE,0.25 OR 0.5MG/DOS, SC, , Disp: , Rfl: Slynd 4 MG tablet, Take 1 tablet by mouth daily Take 1 active tablet daily, do not take placebo pills. Start taking next pack immediately., Disp: 28 tablet, Rfl: 11 famotidine (Pepcid) 20 MG tablet, Take 1 tablet (20 mg) by mouth 2 times daily for 15 days., Disp: 30 tablet, Rfl: 0 sertraline (Zoloft) 100 MG tablet, Take 50 mg by mouth daily., Disp: , Rfl: PSH: Past Surgical History: Procedure Laterality Date SECTION (HISTORICAL) 04/19/2013 Dr. Boggs SECTION, LOW TRANSVERSE 10/14/2013 Dr Vanessa LAPAROSCOPY DIAGNOSTIC / BIOPSY / ASPIRATION / LYSIS x3 For endometriosis OVARIAN CYST REMOVAL Bilateral 03/19/2004 TONSILLECTOMY (HISTORICAL) FH: Family History Problem Relation Name Age of Onset Hypertension Father Cancer Maternal Grandfather blood cancer Diabetes Father Colon cancer Neg Hx SH: Social History Socioeconomic History Marital status: Spouse name: Not on file Number of children: Not on file Years of education: Not on file Highest education level: Not on file Occupational History Not on file Tobacco Use Smoking status: Never Passive exposure: Never Smokeless tobacco: Never Vaping Use Vaping Use: Never used Substance and Sexual Activity Alcohol use: Not Currently Drug use: No Sexual activity: Yes control/protection: OCP Other Topics Concern Not on file Social History Narrative Not on file Social Determinants of Health Financial Resource Strain: Not on file Food Insecurity: Not on file Transportation Needs: Not on file Physical Activity: Not on file Stress: Not on file Social Connections: Not on file Intimate Partner Violence: Not on file Housing Stability: Not on file Physical Exam: Constitutional: General: Patient is not in acute distress. Appearance: Patient is well-developed. Eyes: Conjunctiva/sclera: Conjunctivae normal. Pupils: Pupils are equal, round, and reactive to light. HENT: Jaw: No trismus. Nose: nasal septum midline small amount of of crusting in the anterior nasal cavity turbinates well reduced Mouth: Mucous membranes are not pale, not dry and not cyanotic. No oral lesions. Pharynx: Uvula midline. No oropharyngeal exudate or uvula swelling. Tonsils: No tonsillar exudate. No abnormal masses or lesions Thyroid: No significant thyromegaly. Trachea: Trachea and phonation normal. No tracheal deviation. Pulmonary: Effort: Pulmonary effort is normal. No respiratory distress. Breath sounds: No stridor. Musculoskeletal: Head: Normocephalic and atraumatic. Neck: Full passive range of motion without pain, neck supple. Skin: General: Skin is warm and dry. Findings: No erythema or rash. Neurological: Cranial Nerves: No cranial nerve deficit. Sensory: No sensory deficit. Coordination: Coordination normal. Extremities: No significant peripheral edema or varicosities Psychiatric: Mood and Affect: Mood and affect normal. Cognition and Memory: Cognition and memory normal. Sinus Debridement 33654: To removal debris and make sure no synechiae formed, sinus debridement was performed with a 0 degree camera and angled perez rods when required. Verbal consent was obtained. 4% lidocain with afrin was instilled in the bilateral nasal cavities. Visualization was first performed to ensure no abnormal lesions were seen. A combination of grabbing instruments and suction was used to clear mucous and debris from the nasal cavities. The middle turbinate was noted to be medialized. Debridement was complete once synechiae and potential areas of adhesion were released and all mucus and debris was removed. Patient tolerated procedure well. documented in this encounter [facility] 01-16-2023 History of Presen t illness Narrative Assessment and Recommendations: Joie Young is a 37 y.o. female here for 1 week follow-up from septoplasty inferior turban reduction endoscopic sinus surgery -Overall patient is doing well would recommend that she continue saline irrigations all restrictions were lifted see her back in 1 week for debridement [facility] Clinic Note HPI: Joie Young is a 37 y.o. yo female who presents to clinic today for 1 week follow-up from [facility]. Overall patient is doing okay she did have a rough recovery with significant facial pain and pressure facial swelling and diminished breathing right side greater than left. She denies any bleeding no purulent drainage and she is here for follow-up. PMH: Past Medical History: Diagnosis Date ADHD Asthma BMI 36.0-36.9,adult Depression Double ureter Left Endometriosis History of blood transfusion 2013 when she had daughter Liver mass Migraine Allergies: Allergies Allergen Reactions Clarithromycin Other reaction(s): N&V Galcanezumab Other reaction(s): rash and stomach aches for 48 hrs Sulfamethoxazole Other reaction(s): DIARRHEA AND HEADACHES Sumatriptan Other reaction(s): hung over, hung over Trimethoprim Other reaction(s): DIARRHEA AND HEADACHES Verapamil Rash Galcanezumab-Gnlm Levofloxacin Other reaction(s): Other (See Comments), Other (See Comments), Other: See Comments Leg swelling Prednisone Hives Able to take- just not in high doses Medications: Current Outpatient Medications: albuterol 0.63 MG/3ML nebulizer solution, 0.63 MG (3 mL) inhaled every 4 hours As Needed for shortness of breath or wheezing, Disp: , Rfl: albuterol 108 (90 Base) MCG/ACT inhaler, 2 PUFF INHALATION EVERY 4 HOURS As Needed for shortness OF breath or FOR WHEEZING, Disp: , Rfl: cefdinir (Omnicef) 300 MG capsule, Take 1 capsule (300 mg) by mouth 2 times daily for 10 days., Disp: 20 capsule, Rfl: 0 clonazePAM (KlonoPIN) 0.5 MG tablet, Take 0.5 mg by mouth every morning., Disp: , Rfl: EPINEPHrine (Epipen) 0.3 MG/0.3ML injection syringe, 0.3 mg (0.3 mL) intramuscularly once for allergic reactions; as a single dose; may repeat once, Disp: , Rfl: ketorolac (Sprix) nasal, Administer 1 spray into each nostril every 8 hours as needed for moderate pain (4-6)., Disp: 5 each, Rfl: 3 methylPREDNISolone (Medrol Dospak) 4 MG tablets, Follow schedule on package instructions, Disp: 21 tablet, Rfl: 0 mometasone (Nasonex) 50 MCG/ACT nasal spray, Administer 2 sprays into each nostril 2 times daily., Disp: 17 g, Rfl: 11 Nurtec 75 MG tablet dispersible, 75 mg PO ONCE As Needed for migraine headache; may take everyother day for migriane, Disp: , Rfl: ondansetron (Zofran) 8 MG tablet, Take 8 mg by mouth in the morning and 8 mg in the evening., Disp: , Rfl: oxyCODONE-acetaminophen (Percocet) 5-325 MG tablet, Take 1 tablet by mouth every 6 hours as needed for severe pain (7-10) for up to 5 days., Disp: 15 tablet, Rfl: 0 SEMAGLUTIDE,0.25 OR 0.5MG/DOS, SC, , Disp: , Rfl: sertraline (Zoloft) 100 MG tablet, Take 50 mg by mouth daily., Disp: , Rfl: Slynd 4 MG tablet, Take 1 tablet by mouth daily Take 1 active tablet daily, do not take placebo pills. Start taking next pack immediately., Disp: 28 tablet, Rfl: 11 famotidine (Pepcid) 20 MG tablet, Take 1 tablet (20 mg) by mouth 2 times daily for 15 days., Disp: 30 tablet, Rfl: 0 PSH: Past Surgical History: Procedure Laterality Date SECTION (HISTORICAL) 04/19/2013 Dr. Boggs SECTION, LOW TRANSVERSE 10/14/2013 Dr Vanessa LAPAROSCOPY DIAGNOSTIC / BIOPSY / ASPIRATION / LYSIS x3 For endometriosis OVARIAN CYST REMOVAL Bilateral 03/19/2004 TONSILLECTOMY (HISTORICAL) FH: Family History Problem Relation Name Age of Onset Hypertension Father Cancer Maternal Grandfather blood cancer Diabetes Father Colon cancer Neg Hx SH: Social History Socioeconomic History Marital status: Spouse name: Not on file Number of children: Not on file Years of education: Not on file Highest education level: Not on file Occupational History Not on file Tobacco Use Smoking status: Never Passive exposure: Never Smokeless tobacco: Never Vaping Use Vaping Use: Never used Substance and Sexual Activity Alcohol use: Not Currently Drug use: No Sexual activity: Yes control/protection: OCP Other Topics Concern Not on file Social History Narrative Not on file Social Determinants of Health Financial Resource Strain: Not on file Food Insecurity: Not on file Transportation Needs: Not on file Physical Activity: Not on file Stress: Not on file Social Connections: Not on file Intimate Partner Violence: Not on file Housing Stability: Not on file Physical Exam: Constitutional: General: Patient is not in acute distress. Appearance: Patient is well-developed. Eyes: Conjunctiva/sclera: Conjunctivae normal. Pupils: Pupils are equal, round, and reactive to light. HENT: Jaw: No trismus. Nose: Nasal splints removed without any issue septum midline inferior turbinates well reduced Mouth: Mucous membranes are not pale, not dry and not cyanotic. No oral lesions. Pharynx: Uvula midline. No oropharyngeal exudate or uvula swelling. Tonsils: No tonsillar exudate. No abnormal masses or lesions Thyroid: No significant thyromegaly. Trachea: Trachea and phonation normal. No tracheal deviation. Pulmonary: Effort: Pulmonary effort is normal. No respiratory distress. Breath sounds: No stridor. Musculoskeletal: Head: Normocephalic and atraumatic. Neck: Full passive range of motion without pain, neck supple. Skin: General: Skin is warm and dry. Findings: No erythema or rash. Neurological: Cranial Nerves: No cranial nerve deficit. Sensory: No sensory deficit. Coordination: Coordination normal. Extremities: No significant peripheral edema or varicosities Psychiatric: Mood and Affect: Mood and affect normal. Cognition and Memory: Cognition and memory normal. documented in this encounter [facility] 01-09-2023 Note Patient: Joie Young Procedure Summary Date: 01/09/23 Room / Location: [facility] 2 / [facility] OR Anesthesia Start: 904 Anesthesia Stop: 1031 Procedures: nasal septal reconstruction with bilateral inferior turbinate reduction; functional endoscopic sinus surgery maxillary, frontal, bundle nasal/sinus endocopy, total ethmoidectomy, sphenoidotomy removal from sphenoid sinus (Bilateral: Nose) SUBMUCOUS RESECTION INFERIOR TURBINATE (Bilateral: Nose) NASAL SINUS ENDOCOPY TOTAL INCLUDING SPHENOIDOTOMY WITH REMOVAL TISSUE FROM SPHENOID SINUS (Bilateral) Diagnosis: Chronic maxillary sinusitis Nasal polyp, unspecified Hypertrophy of nasal turbinates Deviated nasal septum (Chronic maxillary sinusitis [J32.0]) (Nasal polyp, unspecified [J33.9]) (Hypertrophy of nasal turbinates [J34.3]) (Deviated nasal septum [J34.2]) Surgeons: Jenny Littlejohn MD Responsible Provider: Meaghan Anesthesiologist - MD Carlos Anesthesia Type: general, TIVA ASA Status: 3 Anesthesia Type: general, TIVA Vitals Value Taken Time BP 95/52 01/09/23 1032 Temp 97.5 01/09/23 1035 Pulse 63 01/09/23 1034 Resp 14 01/09/23 1035 SpO2 97 % 01/09/23 1034 Vitals shown include unfiled device data. Anesthesia Post Evaluation Patient location during evaluation: PACU Patient participation: complete - patient participated Level of consciousness: awake and alert Pain management: satisfactory to patient Airway patency: patent Dental Injury: no Cardiovascular status: acceptable, blood pressure returned to baseline and hemodynamically stable Respiratory status: acceptable and spontaneous ventilation Hydration status: euvolemic Nausea/Vomiting: controlled No notable events documented. Patient can be discharged once all PACU criteria has been met. [facility] 01-09-2023 Note Patient: Joie Young Procedure Summary Date: 01/09/23 Room / Location: [facility] / [facility] Anesthesia Start: 904 Anesthesia Stop: 1031 Procedures: nasal septal reconstruction with bilateral inferior turbinate reduction; functional endoscopic sinus surgery maxillary, frontal, bundle nasal/sinus endocopy, total ethmoidectomy, sphenoidotomy removal from sphenoid sinus (Bilateral: Nose) SUBMUCOUS RESECTION INFERIOR TURBINATE (Bilateral: Nose) NASAL SINUS ENDOCOPY TOTAL INCLUDING SPHENOIDOTOMY WITH REMOVAL TISSUE FROM SPHENOID SINUS (Bilateral) Diagnosis: Chronic maxillary sinusitis Nasal polyp, unspecified Hypertrophy of nasal turbinates Deviated nasal septum (Chronic maxillary sinusitis [J32.0]) (Nasal polyp, unspecified [J33.9]) (Hypertrophy of nasal turbinates [J34.3]) (Deviated nasal septum [J34.2]) Surgeons: Jenny Littlejohn MD Responsible Provider: No Anesthesiologist - Fred/MD Shaun Anesthesia Type: general, TIVA ASA Status: 3 Anesthesia Type: general, TIVA Vitals Value Taken Time BP 125/78 01/09/23 1032 Temp 97.5 01/09/23 1032 Pulse 63 01/09/23 1031 Resp 14 01/09/23 1032 SpO2 88 % 01/09/23 1031 Vitals shown include unfiled device data. Anesthesia Post Evaluation Patient location during evaluation: PACU Patient participation: complete - patient participated Level of consciousness: awake and alert Pain management: satisfactory to patient Multimodal analgesia pain management approach Airway patency: patent Two or more strategies used to mitigate risk of obstructive sleep apnea Cardiovascular status: acceptable and hemodynamically stable Respiratory status: acceptable Hydration status: acceptable No notable events documented. MIPS #430 PONV Patient received an inhalational anesthetic (4554F) Patient exhibits three or more risk factors for PONV (4556F) Patient received at leaset 2 prophylactic Rx PONV anti-emtic agents of different classes preop and/or intraop (G9775) MIPS # 424 Perioperative Temperature Management Anesthesia time was less than 60 minutes (4256F) MIPS #477 Multimodal Pain Management Not emergent case MIPS #404 Anesthesiology Smoking Abstinence The patient is not a current smoker (e.g. cigarette, cigar, pipe, e-cigarette/vaping/marijuana) If no stop here (G9644) I completed my handoff to the receiving clinician during which we: 1. Identified the patient 2. Identified the responsible provider 3. Reviewed the pertinent medical history 4. Discussed the surgical course 5. Reviewed intra-op anesthesia management and issues during anesthesia 6. Set expectations for post-procedure period 7. Allowed opportunity for questions and acknowledgement of understanding. [facility] 01-09-2023 Note [facility] - Patient Pre-procedure Instructions [id number] [place] [address] [address] May shower/brush teeth. Leave valuables/jewelry at home. No makeup, lotion, powder, deodorant or body sprays. No contact lenses No piercings or dark nail gibraltarian Sleep Apnea: If yes, please bring CPAP machine No solid food after midnight before procedure. Clear liquids only - up to 2 hours prior to your arrival time (water, clear juice, Gatorade, coffee/tea with no milk/sugar, no mints gum or candy) If of age, you may need to undergo a test Medications to take the morning of surgery Take the following medications: per PAT Do not take the following medications: per PAT No Motrin, ibuprofen or Advil in 24 hours prior to surgery, longer if directed by your surgeon No Aleve or Naprosyn for 3 days prior to surgery or longer if instructed by your surgeon. If you take blood thinners or aspirin, follow instructions given to you by your surgeon You may take your prescription pain medication, you may take Tylenol for pain. Do not use/smoke THC or drink alcohol in the 24 hours prior to your arrival time. Please Bring your Gas Engine Repairer's license/photo ID, insurance card, eye drops/sunglasses, inhalers if applicable If you have a Medical Power of Lumber Stacker Operator, living will, or an advanced directive, please bring a copy with you. We are required to resuscitate and transfer you to the hospital along with your directive. If you need a work excuse, please reach out to your surgeon's office. You must have a driver license technician arranged. Uber, Lyft, taxi, public transit is not sufficient unless you have someone accompanying you. [facility] 01-09-2023 Note Airway Date/Time: 01/09/2023 9:13 AM Urgency: scheduled Airway not difficult General Information and Staff Patient location during procedure: Procedural Resident/CLOSING SPECIALIST: JOANNE Quiroz CRNA Performed: CLOSING SPECIALIST Performed by: JOANNE Quiroz CRNA Authorized by: JOANNE Quiroz CRNA Indications and Patient Condition Indications for airway management: anesthesia and airway protection Sedation level: Asleep Preoxygenated: yes Patient position: sniffing MILS maintained throughout Mask difficulty assessment: 1 - vent by mask Final Airway Details Final airway type: endotracheal airway Successful airway: ETT Cuffed: yes Successful intubation technique: direct laryngoscopy Blade: Mau Blade size: #3 ETT size (mm): 7.0 Cormack-Lehane Classification: grade IIb - view of arytenoids or posterior of glottis only Placement verified by: chest auscultation Measured from: lips ETT to lips (cm): 21 Number of attempts at approach: 1 Ventilation between attempts: BVM Number of other approaches attempted: 1 [facility] 01-09-2023 Note Formatting of this n ote is different from the original. Patient: Joie Young Procedure Summary Date: 01/09/23 Room / Location: [facility] 2 / [facility] OR Anesthesia Start: 904 Anesthesia Stop: 1031 Procedures: nasal septal reconstruction with bilateral inferior turbinate reduction; functional endoscopic sinus surgery maxillary, frontal, bundle nasal/sinus endocopy, total ethmoidectomy, sphenoidotomy removal from sphenoid sinus (Bilateral: Nose) SUBMUCOUS RESECTION INFERIOR TURBINATE (Bilateral: Nose) NASAL SINUS ENDOCOPY TOTAL INCLUDING SPHENOIDOTOMY WITH REMOVAL TISSUE FROM SPHENOID SINUS (Bilateral) Diagnosis: Chronic maxillary sinusitis Nasal polyp, unspecified Hypertrophy of nasal turbinates Deviated nasal septum (Chronic maxillary sinusitis [J32.0]) (Nasal polyp, unspecified [J33.9]) (Hypertrophy of nasal turbinates [J34.3]) (Deviated nasal septum [J34.2]) Surgeons: Jenny Littlejohn MD Responsible Provider: No Anesthesiologist - Sb/MD Shaun Anesthesia Type: general, TIVA ASA Status: 3 Anesthesia Type: general, TIVA Vitals Value Taken Time BP 95/52 01/09/23 1032 Temp 97.5 01/09/23 1035 Pulse 63 01/09/23 1034 Resp 14 01/09/23 1035 SpO2 97 % 01/09/23 1034 Vitals shown include unfiled device data. Anesthesia Post Evaluation Patient location during evaluation: PACU Patient participation: complete - patient participated Level of consciousness: awake and alert Pain management: satisfactory to patient Airway patency: patent Dental Injury: no Cardiovascular status: acceptable, blood pressure returned to baseline and hemodynamically stable Respiratory status: acceptable and spontaneous ventilation Hydration status: euvolemic Nausea/Vomiting: controlled No notable events documented. Patient can be discharged once all PACU criteria has been met. [facility] 01-09-2023 Note Formatting of this n ote is different from the original. Patient: Joie Young Procedure Summary Date: 01/09/23 Room / Location: [facility] / [facility] OR Anesthesia Start: 904 Anesthesia Stop: 1031 Procedures: nasal septal reconstruction with bilateral inferior turbinate reduction; functional endoscopic sinus surgery maxillary, frontal, bundle nasal/sinus endocopy, total ethmoidectomy, sphenoidotomy removal from sphenoid sinus (Bilateral: Nose) SUBMUCOUS RESECTION INFERIOR TURBINATE (Bilateral: Nose) NASAL SINUS ENDOCOPY TOTAL INCLUDING SPHENOIDOTOMY WITH REMOVAL TISSUE FROM SPHENOID SINUS (Bilateral) Diagnosis: Chronic maxillary sinusitis Nasal polyp, unspecified Hypertrophy of nasal turbinates Deviated nasal septum (Chronic maxillary sinusitis [J32.0]) (Nasal polyp, unspecified [J33.9]) (Hypertrophy of nasal turbinates [J34.3]) (Deviated nasal septum [J34.2]) Surgeons: Jenny Littlejohn MD Responsible Provider: No Anesthesiologist - Fred/MD Shaun Anesthesia Type: general, TIVA ASA Status: 3 Anesthesia Type: general, TIVA Vitals Value Taken Time BP 95/52 01/09/23 1032 Temp 97.5 01/09/23 1035 Pulse 63 01/09/23 1034 Resp 14 01/09/23 1035 SpO2 97 % 01/09/23 1034 Vitals shown include unfiled device data. Anesthesia Post Evaluation Patient location during evaluation: PACU Patient participation: complete - patient participated Level of consciousness: awake and alert Pain management: satisfactory to patient Airway patency: patent Dental Injury: no Cardiovascular status: acceptable, blood pressure returned to baseline and hemodynamically stable Respiratory status: acceptable and spontaneous ventilation Hydration status: euvolemic Nausea/Vomiting: controlled No notable events documented. Patient can be discharged once all PACU criteria has been met. [facility] 01-09-2023 Anesthesiology Postoperative evaluation and management note Patient: Joie Young Procedure Summary Date: 01/09/23 Room / Location: [facility] / [facility] Anesthesia Start: 904 Anesthesia Stop: 1031 Procedures: nasal septal reconstruction with bilateral inferior turbinate reduction; functional endoscopic sinus surgery maxillary, frontal, bundle nasal/sinus endocopy, total ethmoidectomy, sphenoidotomy removal from sphenoid sinus (Bilateral: Nose) SUBMUCOUS RESECTION INFERIOR TURBINATE (Bilateral: Nose) NASAL SINUS ENDOCOPY TOTAL INCLUDING SPHENOIDOTOMY WITH REMOVAL TISSUE FROM SPHENOID SINUS (Bilateral) Diagnosis: Chronic maxillary sinusitis Nasal polyp, unspecified Hypertrophy of nasal turbinates Deviated nasal septum (Chronic maxillary sinusitis [J32.0]) (Nasal polyp, unspecified [J33.9]) (Hypertrophy of nasal turbinates [J34.3]) (Deviated nasal septum [J34.2]) Surgeons: Jenny Littlejohn MD Responsible Provider: No Anesthesiologist - Fred/MD Shaun Anesthesia Type: general, TIVA ASA Status: 3 Anesthesia Type: general, TIVA Vitals Value Taken Time BP 125/78 01/09/23 1032 Temp 97.5 01/09/23 1032 Pulse 63 01/09/23 1031 Resp 14 01/09/23 1032 SpO2 88 % 01/09/23 1031 Vitals shown include unfiled device data. Anesthesia Post Evaluation Patient location during evaluation: PACU Patient participation: complete - patient participated Level of consciousness: awake and alert Pain management: satisfactory to patient Multimodal analgesia pain management approach Airway patency: patent Two or more strategies used to mitigate risk of obstructive sleep apnea Cardiovascular status: acceptable and hemodynamically stable Respiratory status: acceptable Hydration status: acceptable No notable events documented. MIPS #430 PONV Patient received an inhalational anesthetic (4554F) Patient exhibits three or more risk factors for PONV (4556F) Patient received at leaset 2 prophylactic Rx PONV anti-emtic agents of different classes preop and/or intraop (G9775) MIPS # 424 Perioperative Temperature Management Anesthesia time was less than 60 minutes (4256F) MIPS #477 Multimodal Pain Management Not emergent case MIPS #404 Anesthesiology Smoking Abstinence The patient is not a current smoker (e.g. cigarette, cigar, pipe, e-cigarette/vaping/marijuana) If no stop here (G9644) I completed my handoff to the receiving clinician during which we: 1. Identified the patient 2. Identified the responsible provider 3. Reviewed the pertinent medical history 4. Discussed the surgical course 5. Reviewed intra-op anesthesia management and issues during anesthesia 6. Set expectations for post-procedure period 7. Allowed opportunity for questions and acknowledgement of understanding. [facility] Phone: 01-09-2023 Surgical operatio n note Patient: Joie Young Procedure Summary Date: 01/09/23 Room / Location: [facility] 2 / [facility] OR Anesthesia Start: 904 Anesthesia Stop: 1031 Procedures: nasal septal reconstruction with bilateral inferior turbinate reduction; functional endoscopic sinus surgery maxillary, frontal, bundle nasal/sinus endocopy, total ethmoidectomy, sphenoidotomy removal from sphenoid sinus (Bilateral: Nose) SUBMUCOUS RESECTION INFERIOR TURBINATE (Bilateral: Nose) NASAL SINUS ENDOCOPY TOTAL INCLUDING SPHENOIDOTOMY WITH REMOVAL TISSUE FROM SPHENOID SINUS (Bilateral) Diagnosis: Chronic maxillary sinusitis Nasal polyp, unspecified Hypertrophy of nasal turbinates Deviated nasal septum (Chronic maxillary sinusitis [J32.0]) (Nasal polyp, unspecified [J33.9]) (Hypertrophy of nasal turbinates [J34.3]) (Deviated nasal septum [J34.2]) Surgeons: Jenny Littlejohn MD Responsible Provider: Meaghan Anesthesiologist - Fred/MD Shaun Anesthesia Type: general, TIVA ASA Status: 3 Anesthesia Type: general, TIVA Vitals Value Taken Time BP 125/78 01/09/23 1032 Temp 97.5 01/09/23 1032 Pulse 63 01/09/23 1031 Resp 14 01/09/23 1032 SpO2 88 % 01/09/23 1031 Vitals shown include unfiled device data. Anesthesia Post Evaluation Patient location during evaluation: PACU Patient participation: complete - patient participated Level of consciousness: awake and alert Pain management: satisfactory to patient Multimodal analgesia pain management approach Airway patency: patent Two or more strategies used to mitigate risk of obstructive sleep apnea Cardiovascular status: acceptable and hemodynamically stable Respiratory status: acceptable Hydration status: acceptable No notable events documented. MIPS #430 PONV Patient received an inhalational anesthetic (4554F) Patient exhibits three or more risk factors for PONV (4556F) Patient received at leaset 2 prophylactic Rx PONV anti-emtic agents of different classes preop and/or intraop (G9775) MIPS # 424 Perioperative Temperature Management Anesthesia time was less than 60 minutes (4256F) MIPS #477 Multimodal Pain Management Not emergent case MIPS #404 Anesthesiology Smoking Abstinence The patient is not a current smoker (e.g. cigarette, cigar, pipe, e-cigarette/vaping/marijuana) If no stop here (G9644) I completed my handoff to the receiving clinician during which we: 1. Identified the patient 2. Identified the responsible provider 3. Reviewed the pertinent medical history 4. Discussed the surgical course 5. Reviewed intra-op anesthesia management and issues during anesthesia 6. Set expectations for post-procedure period 7. Allowed opportunity for questions and acknowledgement of understanding. Associated Order(s): Airway Airway Date/Time: 01/09/2023 9:13 AM Urgency: scheduled Airway not difficult General Information and Staff Patient location during procedure: Procedural Resident/CLOSING SPECIALIST: JOANNE Quiroz CRNA Performed: CLOSING SPECIALIST Performed by: JOANNE Quiroz CRNA Authorized by: JOANNE Quiroz CRNA Indications and Patient Condition Indications for airway management: anesthesia and airway protection Sedation level: Asleep Preoxygenated: yes Patient position: sniffing MILS maintained throughout Mask difficulty assessment: 1 - vent by mask Final Airway Details Final airway type: endotracheal airway Successful airway: ETT Cuffed: yes Successful intubation technique: direct laryngoscopy Blade: Mau Blade size: #3 ETT size (mm): 7.0 Cormack-Lehane Classification: grade IIb - view of arytenoids or posterior of glottis only Placement verified by: chest auscultation Measured from: lips ETT to lips (cm): 21 Number of attempts at approach: 1 Ventilation between attempts: BVM Number of other approaches attempted: 1 Patient: Joie Young Procedure Information Date/Time: 01/09/23 7535 Procedures: nasal septal reconstruction with bilateral inferior turbinate reduction; functional endoscopic sinus surgery maxillary, frontal, bundle nasal/sinus endocopy, total ethmoidectomy, sphenoidotomy removal from sphenoid sinus (Bilateral: Nose) - 90 mins SUBMUCOUS RESECTION INFERIOR TURBINATE (Bilateral: Nose) NASAL SINUS ENDOCOPY TOTAL INCLUDING SPHENOIDOTOMY WITH REMOVAL TISSUE FROM SPHENOID SINUS (Bilateral) Location: [facility] / [facility] OR Surgeons: Jenny Littlejohn MD Relevant Problems Anesthesia (+) PONV (postoperative nausea and vomiting) /Renal (+) Hydronephrosis with urinary obstruction due to ureteral calculus (+) Kidney stone Neuro/Psych (+) Post depression Other (+) Encounter for supervision of other normal Past Medical History: Past Medical History: No date: ADHD No date: Asthma No date: BMI 36.0-36.9,adult No date: Depression 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 Boggs 10/14/2013: SECTION, LOW TRANSVERSE Comment: Dr Vanessa No date: LAPAROSCOPY DIAGNOSTIC / BIOPSY / ASPIRATION / LYSIS Comment: x3 For endometriosis 03/19/2004: OVARIAN CYST REMOVAL; Bilateral No date: TONSILLECTOMY (HISTORICAL) Social History: TOBACCO: reports that she has never smoked. She has never been exposed to tobacco smoke. She has never used smokeless tobacco. ETOH: reports that she does not currently use alcohol. Social History Substance and Sexual Activity Drug Use No Family History: Family History Problem Relation Name Age of Onset Hypertension Father Cancer Maternal Grandfather blood cancer Diabetes Father Colon cancer Neg Hx Screening: Having periods Clinical information reviewed: Tobacco Allergies Meds Med Hx Surg Hx OB Status Fam Hx Soc Hx Physical Exam Airway Mallampati: III TM distance: >3 FB Neck ROM: full Mouth Open: normalendotracheal tube not in place Cardiovascular Comments: Interpretive Statements Sinus rhythm Probable left atrial enlargement Electronically Signed On 10-13-2021 22:29:33 EDT by Kwadwo Howell Dental Comments: Crowns back left dentition normal Pulmonary Abdominal (+) obese Anesthesia Plan patient is NPO appropriate Any family history or previous problems with anesthesia (mother's treachea is deviated ) ASA 3 general and TIVA Any family history or previous problems with anesthesia (mother's treachea is deviated ) The patient is not a current smoker. Anesthetic plan and risks discussed with patient. BETTYE Screening STOP-Bang Total Score: 1 Labs: Lab Results Component Value Date WBC 4.8 06/22/2022 HGB 13.2 06/22/2022 HCT 39.1 06/22/2022 MCV 82.7 06/22/2022 PLT 292 06/22/2022 Lab Results Component Value Date NA 139 06/22/2022 K 3.1 (L) 06/22/2022 CL 105 06/22/2022 CO2 29 06/22/2022 BUN 9 06/22/2022 CREATININE 0.65 06/22/2022 GLUCOSE 99 06/22/2022 CALCIUM 9.0 06/22/2022 PROT 7.6 06/22/2022 ALKPHOS 53 06/22/2022 AST 26 06/22/2022 ALT 29 06/22/2022 EGFR >90.0 06/22/2022 No echocardiogram results found for the past 14 days No results found for this or any previous visit. documented in this encounter [facility] 01-09-2023 Hospital Discharg e instructions Jenny Littlejohn MD - 01/09/2023 10:16 AM EDT Nasal and Sinus Surgery At Home Instructions The following instructions will help you know what to expect in the days following your surgery. Do not hesitate to call if you have questions or concerns. Please have the following items available at your home/recovery residence Saline rinse bottle for post-surgical nasal irrigations Afrin (to be used ONLY if you have a nosebleed) 4 x 4 gauze and paper tape Tylenol (to be used if necessary after you are out of alternative pain medication) Activities You may shower this evening. Avoid sneezing or blowing your nose for 2 weeks after surgery (gently sniff rather than blow, if you do sneeze, do so with your mouth open). Activities should be limited for 1 week after surgery. Do not lift heavy objects (greater than 10 pounds) for 1 week after surgery. Walking is strongly encouraged. Most patients do not return to work for about 5 to 7 days after surgery; however some return sooner, and others may need more time. The level of pain and frustration caused by the nasal congestion and blockage may be different from patient to patient. Diet A normal diet may be resumed. Fever A low-grade fever, less than 101 F is not uncommon for 2 to 3 days after surgery. If fever continues or is higher than 101 F, call your physician. Use Tylenol to control the Fever. Pain Control Many patients do not have much pain after nasal surgery, but everyone is different. Most patients feel pressure and congestion. For mild pain, acetaminophen (Tylenol ) will do. We will prescribe stronger pain medication for after surgery. Drink plenty of water as these stronger pain medications can be constipating. Also take the prescribed stool softeners on a regular basis while taking narcotic pain medications. Avoid taking aspirin, ibuprofen (Advil , Motrin ), naproxen (Aleve , Naprosyn ), and other nonsteroidal anti-inflammatory medications (NSAIDs) for a week following nasal surgery. These drugs can increase bleeding. Pain should lessen with time. If pain increases, call the office. Drainage You can expect to have bloody nasal drainage after nasal or sinus surgery. To catch this drainage and to help avoid continuous nose wiping, we usually put a gauze mustache dressing under the nose and tape it to the cheeks for as long as the drainage continues. BLEEDING: Some blood in the nasal drainage after surgery is to be expected. This may be dark red or brown. If the nose is bleeding freely or you think the amount is too much, call the office immediately. Avoid nose blowing and try to sneeze with your mouth open if needed. Sleeping with your head elevated will also help prevent bleeding and reduce congestion. If you have a nosebleed, you can try spraying oxymetazoline spray (Afrin ) in the nose. Care of the Nose NASAL SALINE IRRIGATION: THIS IS VERY IMPORTANT - After sinus surgery, we like to have the nose irrigated with saline solution . This will help rinse the blood clots and mucous from the nose. Please START IRRIGATIONS THE DAY AFTER SURGERY. Never use your fingers to clear blockages in your nose . How to Irrigate Gently insert the tip into one nostril and squeeze. Keep your head down to prevent water from going back down into your throat. Use about one half of the bottle per nostril. Do this for each nostril two to three times daily for the first month. Follow up Your appointment for follow up after your surgery should have been scheduled at the time of your surgery. If not, call the office for an appointment scheduled for 1-2 weeks after the date of your surgery. Call the office or GO TO THE EMERGENCY ROOM if you have: Excessive pain, swelling, bleeding or drainage Shortness of breath or difficulty breathing Persistent nausea and vomiting Fever that continues or is higher than 101 F Neck stiffness (cannot touch your chin to your chest) Confusion Worsening headaches Clear drainage dripping from your nose like a leaky faucet (note that this may happen and is normal up to 30 minutes following saline sprays) Salty or metallic taste (note that you may experience a salty taste which is normal up to 30 minutes following saline sprays) Do not hesitate to call if you have any questions or concerns: Offices of Dr. Jenny Littlejohn - [phone] during normal business hours If there is an after-hours EMERGENCY related to your procedure please present to the nearest emergency room or [facility] ER if possible. documented in this encounter [facility] 01-09-2023 Miscellaneous Notes [facility] - Patient Pre-procedure Instructions [address] [place] [address] [address] May shower/brush teeth. Leave valuables/jewelry at home. No makeup, lotion, powder, deodorant or body sprays. No contact lenses No piercings or dark nail gibraltarian Sleep Apnea: If yes, please bring CPAP machine No solid food after midnight before procedure. Clear liquids only - up to 2 hours prior to your arrival time (water, clear juice, Gatorade, coffee/tea with no milk/sugar, no mints gum or candy) If of age, you may need to undergo a test Medications to take the morning of surgery Take the following medications: per PAT Do not take the following medications: per PAT No Motrin, ibuprofen or Advil in 24 hours prior to surgery, longer if directed by your surgeon No Aleve or Naprosyn for 3 days prior to surgery or longer if instructed by your surgeon. If you take blood thinners or aspirin, follow instructions given to you by your surgeon You may take your prescription pain medication, you may take Tylenol for pain. Do not use/smoke THC or drink alcohol in the 24 hours prior to your arrival time. Please Bring your Gas Engine Repairer's license/photo ID, insurance card, eye drops/sunglasses, inhalers if applicable If you have a Medical Power of Lumber Stacker Operator, living will, or an advanced directive, please bring a copy with you. We are required to resuscitate and transfer you to the hospital along with your directive. If you need a work excuse, please reach out to your surgeon's office. You must have a driver license technician arranged. Uber, Lyft, taxi, public transit is not sufficient unless you have someone accompanying you. Date: 01/09/2023 Location: [facility] OR Name: Joie Young, : 1985, Diagnosis Pre-op Diagnosis * Chronic maxillary sinusitis [J32.0] * Nasal polyp, unspecified [J33.9] * Hypertrophy of nasal turbinates [J34.3] * Deviated nasal septum [J34.2] Post-op Diagnosis * Chronic maxillary sinusitis [J32.0] * Nasal polyp, unspecified [J33.9] * Hypertrophy of nasal turbinates [J34.3] * Deviated nasal septum [J34.2] Procedures nasal septal reconstruction with bilateral inferior turbinate reduction; functional endoscopic sinus surgery maxillary, frontal, bundle nasal/sinus endocopy, total ethmoidectomy, sphenoidotomy removal from sphenoid sinus 83586 - [place] SEPTOPLASTY/SUBMUCOUS RESECJ W/WO CARTILAGE GRF SUBMUCOUS RESECTION INFERIOR TURBINATE 33370 - [place] SUBMUCOUS RESCJ INFERIOR TURBINATE PRTL/COMPL NASAL SINUS ENDOCOPY TOTAL INCLUDING SPHENOIDOTOMY WITH REMOVAL TISSUE FROM SPHENOID SINUS 89021 - [place] NASAL/SINUS NDSC TOT W/SPHENDT W/SPHEN TISS RMVL Surgeons * Jenny Littlejohn - Primary Procedure Summary Anesthesia: General ASA: III Estimated Blood Loss: 200 mL Drains: * None in log * Specimens ID Source Type Tests Collected By Collected At Frozen? Priority Lab ID 1 Nose Tissue TISSUE EXAM Jenny Littlejohn MD 01/09/23 0925 No Routine Description: 1.right and left sinus contents Staff: Capsule Machine Operator: Lydia Gunderson RN Scrub Person: Garrett Randhawa Findings: bilateral chronic sinusitis with deviated nasal septum and inferior turbinate hypertrophy Complications: None; patient tolerated the procedure well. Specimens Collected: Order Name Source Comment Collection Info Order Time TISSUE EXAM Nose Pre-op diagnosis: Chronic maxillary sinusitis [J32.0] Nasal polyp, unspecified [J33.9] Hypertrophy of nasal turbinates [J34.3] Deviated nasal septum [J34.2] Collected By: Jenny Littlejohn MD 01/09/2023 9:28 AM Wound Class: Class II: Clean-Contaminated Blood Products: None Prophylactic Antibiotics: Pre-operative antibiotics were not given because antibiotics are not indicated for this procedure. Operative Indications: Joie Young is a 37 y.o. yo M/F who presented to clinic with symptoms of nasal obstruction and was noted to have a severely deviated septum. Failed conservative management and after discussion of options elected for surgery. Procedure in Detail: Patient was seen and evaluated in the pre-operative area. Informed consent was obtained after reviewing all risks, benefits, indications and alternatives to the planned procedures. Patient was taken back to the operating room by the anesthesia team. General anesthesia was induced and patient was orotracheally intubated without issue. Patient was then turned 90 degrees towards the ENT team. Appropriate time-out was performed by Dr. Littlejohn. Afrin soaked pledgets were inserted into the bilateral nares. The patient was then prepped and draped in the usual sterile fashion. Rigid nasal endoscopy was performed on both sides. This showed findings as above. 1% lidocaine with 1:100,000 epinephrine was injected in the lateral nasal wall and the axilla of the middle turbinate on both sides under endoscopic guidance. The image guidance system was then configured according to the able bodied tankerman's instructions and the patient registered with the system. Image guidance was necessary due to the absence of normal anatomical landmarks. It was utilized throughout the procedure to confirm the location of the skull base, lamina papyracea, and other structures. We first turned our attention to the left side. A 0 degree nasal endoscope was used to visualize the middle meatus. The middle turbinate was medialized with a freer elevator. The uncinate was incised inferiorly using a pediatric back-biter until the lacrimal bone was identified with image guidance. The uncinate process was then flipped anteriorly and a microdebrider was use to remove the remainder of the uncinate. A ball tip probe was then used to identify the maxillary antrum. The maxillary antrostomy was then widened inferiorly towards the level of the inferior turbinate, posteriorly to the posterior maxillary sinus wall and anteriorly to connect to the natural ostium of the maxillary sinus. Dissection was performed with combination of joe-cutting forceps, down biters and microdebrider.There was noted to be no polyposis in the maxillary sinus. We then proceeded with our total ethmoidectomy. We entered the ethmoid bulla with a j-curette. We opened the ethmoid cells posteriorly to the basal lamella, laterally to the lamina and medially towards the middle turbinate. Then we proceeded through the basal lamella to enter the posterior ethmoid cavity. All air cells were cleared out until the ethmoid skull base was identified at its posterior extent as well as the face of the sphenoid. Next we performed our sphenoidotomy. The inferior 1/3 of the superior turbinate was removed with straight cutting forceps. The natural os of the sphenoid was identified with the image guidance. The sphenoidotomy was made with a mushroom punch. This was widened with a 2-Kerrison and microdebrider. The sphenoid sinus was then explored and any polyps and inspissated secretions removed. We proceeded in a posterior to anterior direction using curved scopes and instruments to carefully clear out the erthmoid cavity up to the skull base. Anteriorly we took down the agger nasi cell. A frontal sinus probe was used to identify the antural outflow of the frontal sinus. This was carefully widened with a curved microdebrider and Appliance Servicer punch until a wide view into the frontal sinus was obtained. Due to severe septal deviation, septoplasty was performed before sinus surgery on the contralateral side. The septum was injected bilaterally with 1% lidocaine with 1:100,000 epinephrine. A Fabian's incision was made on the left side. The incision was carried down to the septal cartilage. A ivette elevator was used to elevate a mucoperichondrial flap to the bony-cartilaginous junction. A 15 blade was used to incise the cartilage caudally, being careful to leave at least a 1.5cm strut. Subsequently a mucoperichondrial flap was elevated posteriorly on the opposite side. The qudrangular cartilage was then removed in piece meal fashion until the axilla of the bilateral middle turbinates were clearly visualized. We left at least a 1.5cm strut caudally and dorsally of septal cartilage. Bony spurs were identified inferiorly and removed with a YEVVOahasi forcep as well as osteotome. The mucoperichondrial flaps were then placed back against the bone/cartilage and the septum was significantly straighter. Incision was closed with 4-0 chromic placed through and through the caudal septum. The contralateral side was then addressed in a similar fashion first starting with maxillary antrostomy followed by total ethmoidectomy, sphenoidotomy and frontal sinusotomy. Briefly, the uncinate process was taken down and the maxillary sinus identified with a curved seeker. A j-curette was used to enter the ethmoid bulla and the ethmoid cells were taken down to the basal lamella identifying the lamina medially. The basal lamella was gtraversed and taken posterioly to identify the ethmoid skull base and sphenoid face. The lower 1/3 of the superior turbinate was taken down and natural os of sphenoid identified with image guidance. The sphenoidotomy was widened. Then using curved scopes and instruments we proceeded in posterior to anterior direction carefully cleaning out the ethmoid cavity and skeletonizing the skull base. We took down the agger nasi. Frontal sinus outflow tract identified with the curved image guidance seeker. This was widened with microdebrider and Hosemann punch. Attention was then turned to the inferior turbinates. They were injected with 1% lidocaine with 1:100,000 epinephrine. A stab incision was made at the anterior head of the left inferior turbinate, and the inferior turbinate microdebrider blade was used to remove the turbinate tissue until adequate space was made in the nasal cavity. The same procedure was then performed on the contralateral side. The Ashe elevator was then used to out-fracture the turbinates bilaterally. Tristan splints covered in bactroban ointment were then placed along the septum bilaterally and secured using a 2-0 Prolene stitch with the stitch tied in the left nares. This was the end of our procedure. Patient's care was turned over to the anesthesia team. They were awakened, extubated and transferred to the PACU in stable condition. Date: 01/09/2023 Location: [facility] OR Name: Joie Young, : 1985, Diagnosis Pre-op Diagnosis * Chronic maxillary sinusitis [J32.0] * Nasal polyp, unspecified [J33.9] * Hypertrophy of nasal turbinates [J34.3] * Deviated nasal septum [J34.2] Post-op Diagnosis * Chronic maxillary sinusitis [J32.0] * Nasal polyp, unspecified [J33.9] * Hypertrophy of nasal turbinates [J34.3] * Deviated nasal septum [J34.2] Procedures nasal septal reconstruction with bilateral inferior turbinate reduction; functional endoscopic sinus surgery maxillary, frontal, bundle nasal/sinus endocopy, total ethmoidectomy, sphenoidotomy removal from sphenoid [place] 12084 - [place] SEPTOPLASTY/SUBMUCOUS RESECJ W/WO CARTILAGE GRF SUBMUCOUS RESECTION INFERIOR TURBINATE 43121 - [place] SUBMUCOUS RESCJ INFERIOR TURBINATE PRTL/COMPL NASAL SINUS ENDOCOPY TOTAL INCLUDING SPHENOIDOTOMY WITH REMOVAL TISSUE FROM SPHENOID SINUS 96782 - [place] NASAL/SINUS NDSC TOT W/SPHENDT W/SPHEN TISS [facility]VL Surgeons * Jenny Littlejohn - Primary Procedure Summary Anesthesia: General ASA: III Estimated Blood Loss: 200 mL Drains: * None in log * Specimens ID Source Type Tests Collected By Collected At Frozen? Priority Lab ID 1 Nose Tissue TISSUE EXAM Jenny Littlejohn MD 01/09/2371 No Routine Description: 1.right and left sinus contents Staff: Capsule Machine Operator: Lydia Gunderson RN Scrub Person: Garrett Randhawa Findings: bilateral chronic sinusitis with deviated nasal septum and inferior turbinate hypertrophy Complications: None; patient tolerated the procedure well. Specimens Collected: Order Name Source Comment Collection Info Order Time TISSUE EXAM Nose Pre-op diagnosis: Chronic maxillary sinusitis [J32.0] Nasal polyp, unspecified [J33.9] Hypertrophy of nasal turbinates [J34.3] Deviated nasal septum [J34.2] Collected By: Jenny Littlejohn MD 01/09/2023 9:28 AM Wound Class: Class II: Clean-Contaminated Blood Products: None Prophylactic Antibiotics: Pre-operative antibiotics were not given because antibiotics are not indicated for this procedure. Airway removed by RN. Patient instructed to deep breathe and cough. Repositioned for discomfort Instructions with patient and . Questions answered. After patient was discharged she requested a little more time to rest before leaving our center. Request granted. present. Patient is slight nauseated and dizzy. Patient left the center feeling better. Pain 5/10. Nose pad was changed for moderate bloody drainage. documented in this encounter [facility] 01-09-2023 Note Formatting of this n ote might be different from the original. [facility] - Patient Pre-procedure Instructions [address] [id number] [address] May shower/brush teeth. Leave valuables/jewelry at home. No makeup, lotion, powder, deodorant or body sprays. No contact lenses No piercings or dark nail gibraltarian Sleep Apnea: If yes, please bring CPAP machine No solid food after midnight before procedure. Clear liquids only - up to 2 hours prior to your arrival time (water, clear juice, Gatorade, coffee/tea with no milk/sugar, no mints gum or candy) If of age, you may need to undergo a test Medications to take the morning of surgery Take the following medications: per PAT Do not take the following medications: per PAT No Motrin, ibuprofen or Advil in 24 hours prior to surgery, longer if directed by your surgeon No Aleve or Naprosyn for 3 days prior to surgery or longer if instructed by your surgeon. If you take blood thinners or aspirin, follow instructions given to you by your surgeon You may take your prescription pain medication, you may take Tylenol for pain. Do not use/smoke THC or drink alcohol in the 24 hours prior to your arrival time. Please Bring your Gas Engine Repairer's license/photo ID, insurance card, eye drops/sunglasses, inhalers if applicable If you have a Medical Power of Lumber Stacker Operator, living will, or an advanced directive, please bring a copy with you. We are required to resuscitate and transfer you to the hospital along with your directive. If you need a work excuse, please reach out to your surgeon's office. You must have a driver license technician arranged. Uber, Lyft, taxi, public transit is not sufficient unless you have someone accompanying you. [facility] 01-09-2023 Note Formatting of this n ote might be different from the original. [facility] - Patient Pre-procedure Instructions [address] [place] [address] [address] May shower/brush teeth. Leave valuables/jewelry at home. No makeup, lotion, powder, deodorant or body sprays. No contact lenses No piercings or dark nail gibraltarian Sleep Apnea: If yes, please bring CPAP machine No solid food after midnight before procedure. Clear liquids only - up to 2 hours prior to your arrival time (water, clear juice, Gatorade, coffee/tea with no milk/sugar, no mints gum or candy) If of age, you may need to undergo a test Medications to take the morning of surgery Take the following medications: per PAT Do not take the following medications: per PAT No Motrin, ibuprofen or Advil in 24 hours prior to surgery, longer if directed by your surgeon No Aleve or Naprosyn for 3 days prior to surgery or longer if instructed by your surgeon. If you take blood thinners or aspirin, follow instructions given to you by your surgeon You may take your prescription pain medication, you may take Tylenol for pain. Do not use/smoke THC or drink alcohol in the 24 hours prior to your arrival time. Please Bring your Gas Engine Repairer's license/photo ID, insurance card, eye drops/sunglasses, inhalers if applicable If you have a Medical Power of Lumber Stacker Operator, living will, or an advanced directive, please bring a copy with you. We are required to resuscitate and transfer you to the hospital along with your directive. If you need a work excuse, please reach out to your surgeon's office. You must have a driver license technician arranged. Uber, Lyft, taxi, public transit is not sufficient unless you have someone accompanying you. [facility] 01-09-2023 Anesthesiology procedure note Associated Order(s): Airway Airway Date/Time: 01/09/2023 9:13 AM Urgency: scheduled Airway not difficult General Information and Staff Patient location during procedure: Procedural Resident/CLOSING SPECIALIST: JOANNE Quiroz CRNA Performed: CLOSING SPECIALIST Performed by: JOANNE Quiroz CRNA Authorized by: JOANNE Quiroz CRNA Indications and Patient Condition Indications for airway management: anesthesia and airway protection Sedation level: Asleep Preoxygenated: yes Patient position: sniffing MILS maintained throughout Mask difficulty assessment: 1 - vent by mask Final Airway Details Final airway type: endotracheal airway Successful airway: ETT Cuffed: yes Successful intubation technique: direct laryngoscopy Blade: Mau Blade size: #3 ETT size (mm): 7.0 Cormack-Lehane Classification: grade IIb - view of arytenoids or posterior of glottis only Placement verified by: chest auscultation Measured from: lips ETT to lips (cm): 21 Number of attempts at approach: 1 Ventilation between attempts: BVM Number of other approaches attempted: 1 [facility] 01-09-2023 Note Formatting of this n ote is different from the original. Date: 01/09/2023 Location: [facility] OR Name: Joie Young, : 1985, Diagnosis Pre-op Diagnosis * Chronic maxillary sinusitis [J32.0] * Nasal polyp, unspecified [J33.9] * Hypertrophy of nasal turbinates [J34.3] * Deviated nasal septum [J34.2] Post-op Diagnosis * Chronic maxillary sinusitis [J32.0] * Nasal polyp, unspecified [J33.9] * Hypertrophy of nasal turbinates [J34.3] * Deviated nasal septum [J34.2] Procedures nasal septal reconstruction with bilateral inferior turbinate reduction; functional endoscopic sinus surgery maxillary, frontal, bundle nasal/sinus endocopy, total ethmoidectomy, sphenoidotomy removal from sphenoid sinus 40374 - [place] SEPTOPLASTY/SUBMUCOUS RESECJ W/WO CARTILAGE GRF SUBMUCOUS RESECTION INFERIOR TURBINATE 27083 - [place] SUBMUCOUS RESCJ INFERIOR TURBINATE PRTL/COMPL NASAL SINUS ENDOCOPY TOTAL INCLUDING SPHENOIDOTOMY WITH REMOVAL TISSUE FROM SPHENOID SINUS 94786 - [place] NASAL/SINUS NDSC TOT W/SPHENDT W/SPHEN TISS [facility] * Jenny Littlejohn - Primary Procedure Summary Anesthesia: General ASA: III Estimated Blood Loss: 200 mL Drains: * None in log * Specimens ID Source Type Tests Collected By Collected At Frozen? Priority Lab ID 1 Nose Tissue TISSUE EXAM Jenny Littlejohn MD 01/09/23 0925 No Routine Description: 1.right and left sinus contents Staff: Capsule Machine Operator: Lydia Gunderson RN Scrub Person: Garrett Randhawa Findings: bilateral chronic sinusitis with deviated nasal septum and inferior turbinate hypertrophy Complications: None; patient tolerated the procedure well. Specimens Collected: Order Name Source Comment Collection Info Order Time TISSUE EXAM Nose Pre-op diagnosis: Chronic maxillary sinusitis [J32.0] Nasal polyp, unspecified [J33.9] Hypertrophy of nasal turbinates [J34.3] Deviated nasal septum [J34.2] Collected By: Jenny Littlejohn MD 01/09/2023 9:28 AM Wound Class: Class II: Clean-Contaminated Blood Products: None Prophylactic Antibiotics: Pre-operative antibiotics were not given because antibiotics are not indicated for this procedure. Operative Indications: Joie Young is a 37 y.o. yo M/F who presented to clinic with symptoms of nasal obstruction and was noted to have a severely deviated septum. Failed conservative management and after discussion of options elected for surgery. Procedure in Detail: Patient was seen and evaluated in the pre-operative area. Informed consent was obtained after reviewing all risks, benefits, indications and alternatives to the planned procedures. Patient was taken back to the operating room by the anesthesia team. General anesthesia was induced and patient was orotracheally intubated without issue. Patient was then turned 90 degrees towards the ENT team. Appropriate time-out was performed by Dr. Littlejohn. Afrin soaked pledgets were inserted into the bilateral nares. The patient was then prepped and draped in the usual sterile fashion. Rigid nasal endoscopy was performed on both sides. This showed findings as above. 1% lidocaine with 1:100,000 epinephrine was injected in the lateral nasal wall and the axilla of the middle turbinate on both sides under endoscopic guidance. The image guidance system was then configured according to the able bodied tankerman's instructions and the patient registered with the system. Image guidance was necessary due to the absence of normal anatomical landmarks. It was utilized throughout the procedure to confirm the location of the skull base, lamina papyracea, and other structures. We first turned our attention to the left side. A 0 degree nasal endoscope was used to visualize the middle meatus. The middle turbinate was medialized with a freer elevator. The uncinate was incised inferiorly using a pediatric back-biter until the lacrimal bone was identified with image guidance. The uncinate process was then flipped anteriorly and a microdebrider was use to remove the remainder of the uncinate. A ball tip probe was then used to identify the maxillary antrum. The maxillary antrostomy was then widened inferiorly towards the level of the inferior turbinate, posteriorly to the posterior maxillary sinus wall and anteriorly to connect to the natural ostium of the maxillary sinus. Dissection was performed with combination of joe-cutting forceps, down biters and microdebrider.There was noted to be no polyposis in the maxillary sinus. We then proceeded with our total ethmoidectomy. We entered the ethmoid bulla with a j-curette. We opened the ethmoid cells posteriorly to the basal lamella, laterally to the lamina and medially towards the middle turbinate. Then we proceeded through the basal lamella to enter the posterior ethmoid cavity. All air cells were cleared out until the ethmoid skull base was identified at its posterior extent as well as the face of the sphenoid. Next we performed our sphenoidotomy. The inferior 1/3 of the superior turbinate was removed with straight cutting forceps. The natural os of the sphenoid was identified with the image guidance. The sphenoidotomy was made with a mushroom punch. This was widened with a 2-Kerrison and microdebrider. The sphenoid sinus was then explored and any polyps and inspissated secretions removed. We proceeded in a posterior to anterior direction using curved scopes and instruments to carefully clear out the erthmoid cavity up to the skull base. Anteriorly we took down the agger nasi cell. A frontal sinus probe was used to identify the antural outflow of the frontal sinus. This was carefully widened with a curved microdebrider and Appliance Servicer punch until a wide view into the frontal sinus was obtained. Due to severe septal deviation, septoplasty was performed before sinus surgery on the contralateral side. The septum was injected bilaterally with 1% lidocaine with 1:100,000 epinephrine. A [place]'s incision was made on the left side. The incision was carried down to the septal cartilage. A ivette elevator was used to elevate a mucoperichondrial flap to the bony-cartilaginous junction. A 15 blade was used to incise the cartilage caudally, being careful to leave at least a 1.5cm strut. Subsequently a mucoperichondrial flap was elevated posteriorly on the opposite side. The qudrangular cartilage was then removed in piece meal fashion until the axilla of the bilateral middle turbinates were clearly visualized. We left at least a 1.5cm strut caudally and dorsally of septal cartilage. Bony spurs were identified inferiorly and removed with a Tak[place]asi forcep as well as osteotome. The mucoperichondrial flaps were then placed back against the bone/cartilage and the septum was significantly straighter. Incision was closed with 4-0 chromic placed through and through the caudal septum. The contralateral side was then addressed in a similar fashion first starting with maxillary antrostomy followed by total ethmoidectomy, sphenoidotomy and frontal sinusotomy. Briefly, the uncinate process was taken down and the maxillary sinus identified with a curved seeker. A j-curette was used to enter the ethmoid bulla and the ethmoid cells were taken down to the basal lamella identifying the lamina medially. The basal lamella was gtraversed and taken posterioly to identify the ethmoid skull base and sphenoid face. The lower 1/3 of the superior turbinate was taken down and natural os of sphenoid identified with image guidance. The sphenoidotomy was widened. Then using curved scopes and instruments we proceeded in posterior to anterior direction carefully cleaning out the ethmoid cavity and skeletonizing the skull base. We took down the agger nasi. Frontal sinus outflow tract identified with the curved image guidance seeker. This was widened with microdebrider and Hosemann punch. Attention was then turned to the inferior turbinates. They were injected with 1% lidocaine with 1:100,000 epinephrine. A stab incision was made at the anterior head of the left inferior turbinate, and the inferior turbinate microdebrider blade was used to remove the turbinate tissue until adequate space was made in the nasal cavity. The same procedure was then performed on the contralateral side. The Ashe elevator was then used to out-fracture the turbinates bilaterally. Tritsan splints covered in bactroban ointment were then placed along the septum bilaterally and secured using a 2-0 Prolene stitch with the stitch tied in the left nares. This was the end of our procedure. Patient's care was turned over to the anesthesia team. They were awakened, extubated and transferred to the PACU in stable condition. [facility] 01-09-2023 Note Formatting of this n ote is different from the original. Date: 01/09/2023 Location: [facility] OR Name: Joie Young, : 1985, Diagnosis Pre-op Diagnosis * Chronic maxillary sinusitis [J32.0] * Nasal polyp, unspecified [J33.9] * Hypertrophy of nasal turbinates [J34.3] * Deviated nasal septum [J34.2] Post-op Diagnosis * Chronic maxillary sinusitis [J32.0] * Nasal polyp, unspecified [J33.9] * Hypertrophy of nasal turbinates [J34.3] * Deviated nasal septum [J34.2] Procedures nasal septal reconstruction with bilateral inferior turbinate reduction; functional endoscopic sinus surgery maxillary, frontal, bundle nasal/sinus endocopy, total ethmoidectomy, sphenoidotomy removal from sphenoid sinus 00188 - [place] SEPTOPLASTY/SUBMUCOUS RESECJ W/WO CARTILAGE GRF SUBMUCOUS RESECTION INFERIOR TURBINATE 39054 - [place] SUBMUCOUS RESCJ INFERIOR TURBINATE PRTL/COMPL NASAL SINUS ENDOCOPY TOTAL INCLUDING SPHENOIDOTOMY WITH REMOVAL TISSUE FROM SPHENOID SINUS 23409 - [place] NASAL/SINUS NDSC TOT W/SPHENDT W/SPHEN TISS [facility] * Jenny Littlejohn - Primary Procedure Summary Anesthesia: General ASA: III Estimated Blood Loss: 200 mL Drains: * None in log * Specimens ID Source Type Tests Collected By Collected At Frozen? Priority Lab ID 1 Nose Tissue TISSUE EXAM Jenny Littlejohn MD 01/09/23 0973 No Routine Description: 1.right and left sinus contents Staff: Capsule Machine Operator: Lydia Gunderson RN Scrub Person: Garrett Randhawa Findings: bilateral chronic sinusitis with deviated nasal septum and inferior turbinate hypertrophy Complications: None; patient tolerated the procedure well. Specimens Collected: Order Name Source Comment Collection Info Order Time TISSUE EXAM Nose Pre-op diagnosis: Chronic maxillary sinusitis [J32.0] Nasal polyp, unspecified [J33.9] Hypertrophy of nasal turbinates [J34.3] Deviated nasal septum [J34.2] Collected By: Jenny Littlejohn MD 01/09/2023 9:28 AM Wound Class: Class II: Clean-Contaminated Blood Products: None Prophylactic Antibiotics: Pre-operative antibiotics were not given because antibiotics are not indicated for this procedure. [facility] 01-09-2023 Note Formatting of this n ote is different from the original. Date: 01/09/2023 Location: [facility] OR Name: Joie Young, : 1985, Diagnosis Pre-op Diagnosis * Chronic maxillary sinusitis [J32.0] * Nasal polyp, unspecified [J33.9] * Hypertrophy of nasal turbinates [J34.3] * Deviated nasal septum [J34.2] Post-op Diagnosis * Chronic maxillary sinusitis [J32.0] * Nasal polyp, unspecified [J33.9] * Hypertrophy of nasal turbinates [J34.3] * Deviated nasal septum [J34.2] Procedures nasal septal reconstruction with bilateral inferior turbinate reduction; functional endoscopic sinus surgery maxillary, frontal, bundle nasal/sinus endocopy, total ethmoidectomy, sphenoidotomy removal from sphenoid sinus 62688 - [place] SEPTOPLASTY/SUBMUCOUS RESECJ W/WO CARTILAGE GRF SUBMUCOUS RESECTION INFERIOR TURBINATE 74370 - [place] SUBMUCOUS RESCJ INFERIOR TURBINATE PRTL/COMPL NASAL SINUS ENDOCOPY TOTAL INCLUDING SPHENOIDOTOMY WITH REMOVAL TISSUE FROM SPHENOID SINUS 94861 - [place] NASAL/SINUS NDSC TOT W/SPHENDT W/SPHEN TISS [facility] * Jenny Littlejohn - Primary Procedure Summary Anesthesia: General ASA: III Estimated Blood Loss: 200 mL Drains: * None in log * Specimens ID Source Type Tests Collected By Collected At Frozen? Priority Lab ID 1 Nose Tissue TISSUE EXAM Jenny Littlejohn MD 01/09/23 0925 No Routine Description: 1.right and left sinus contents Staff: Capsule Machine Operator: Lydia Gunderson RN Scrub Person: Garrett Randhawa Findings: bilateral chronic sinusitis with deviated nasal septum and inferior turbinate hypertrophy Complications: None; patient tolerated the procedure well. Specimens Collected: Order Name Source Comment Collection Info Order Time TISSUE EXAM Nose Pre-op diagnosis: Chronic maxillary sinusitis [J32.0] Nasal polyp, unspecified [J33.9] Hypertrophy of nasal turbinates [J34.3] Deviated nasal septum [J34.2] Collected By: Jenny Littlejohn MD 01/09/2023 9:28 AM Wound Class: Class II: Clean-Contaminated Blood Products: None Prophylactic Antibiotics: Pre-operative antibiotics were not given because antibiotics are not indicated for this procedure. Operative Indications: Joie Young is a 37 y.o. yo M/F who presented to clinic with symptoms of nasal obstruction and was noted to have a severely deviated septum. Failed conservative management and after discussion of options elected for surgery. Procedure in Detail: Patient was seen and evaluated in the pre-operative area. Informed consent was obtained after reviewing all risks, benefits, indications and alternatives to the planned procedures. Patient was taken back to the operating room by the anesthesia team. General anesthesia was induced and patient was orotracheally intubated without issue. Patient was then turned 90 degrees towards the ENT team. Appropriate time-out was performed by Dr. Littlejohn. Afrin soaked pledgets were inserted into the bilateral nares. The patient was then prepped and draped in the usual sterile fashion. Rigid nasal endoscopy was performed on both sides. This showed findings as above. 1% lidocaine with 1:100,000 epinephrine was injected in the lateral nasal wall and the axilla of the middle turbinate on both sides under endoscopic guidance. The image guidance system was then configured according to the able bodied tankerman's instructions and the patient registered with the system. Image guidance was necessary due to the absence of normal anatomical landmarks. It was utilized throughout the procedure to confirm the location of the skull base, lamina papyracea, and other structures. We first turned our attention to the left side. A 0 degree nasal endoscope was used to visualize the middle meatus. The middle turbinate was medialized with a freer elevator. The uncinate was incised inferiorly using a pediatric back-biter until the lacrimal bone was identified with image guidance. The uncinate process was then flipped anteriorly and a microdebrider was use to remove the remainder of the uncinate. A ball tip probe was then used to identify the maxillary antrum. The maxillary antrostomy was then widened inferiorly towards the level of the inferior turbinate, posteriorly to the posterior maxillary sinus wall and anteriorly to connect to the natural ostium of the maxillary sinus. Dissection was performed with combination of joe-cutting forceps, down biters and microdebrider.There was noted to be no polyposis in the maxillary sinus. We then proceeded with our total ethmoidectomy. We entered the ethmoid bulla with a j-curette. We opened the ethmoid cells posteriorly to the basal lamella, laterally to the lamina and medially towards the middle turbinate. Then we proceeded through the basal lamella to enter the posterior ethmoid cavity. All air cells were cleared out until the ethmoid skull base was identified at its posterior extent as well as the face of the sphenoid. Next we performed our sphenoidotomy. The inferior 1/3 of the superior turbinate was removed with straight cutting forceps. The natural os of the sphenoid was identified with the image guidance. The sphenoidotomy was made with a mushroom punch. This was widened with a 2-Kerrison and microdebrider. The sphenoid sinus was then explored and any polyps and inspissated secretions removed. We proceeded in a posterior to anterior direction using curved scopes and instruments to carefully clear out the erthmoid cavity up to the skull base. Anteriorly we took down the agger nasi cell. A frontal sinus probe was used to identify the antural outflow of the frontal sinus. This was carefully widened with a curved microdebrider and Appliance Servicer punch until a wide view into the frontal sinus was obtained. Due to severe septal deviation, septoplasty was performed before sinus surgery on the contralateral side. The septum was injected bilaterally with 1% lidocaine with 1:100,000 epinephrine. A [place]'s incision was made on the left side. The incision was carried down to the septal cartilage. A ivette elevator was used to elevate a mucoperichondrial flap to the bony-cartilaginous junction. A 15 blade was used to incise the cartilage caudally, being careful to leave at least a 1.5cm strut. Subsequently a mucoperichondrial flap was elevated posteriorly on the opposite side. The qudrangular cartilage was then removed in piece meal fashion until the axilla of the bilateral middle turbinates were clearly visualized. We left at least a 1.5cm strut caudally and dorsally of septal cartilage. Bony spurs were identified inferiorly and removed with a [place]EVVO[place]asi forcep as well as osteotome. The mucoperichondrial flaps were then placed back against the bone/cartilage and the septum was significantly straighter. Incision was closed with 4-0 chromic placed through and through the caudal septum. The contralateral side was then addressed in a similar fashion first starting with maxillary antrostomy followed by total ethmoidectomy, sphenoidotomy and frontal sinusotomy. Briefly, the uncinate process was taken down and the maxillary sinus identified with a curved seeker. A j-curette was used to enter the ethmoid bulla and the ethmoid cells were taken down to the basal lamella identifying the lamina medially. The basal lamella was gtraversed and taken posterioly to identify the ethmoid skull base and sphenoid face. The lower 1/3 of the superior turbinate was taken down and natural os of sphenoid identified with image guidance. The sphenoidotomy was widened. Then using curved scopes and instruments we proceeded in posterior to anterior direction carefully cleaning out the ethmoid cavity and skeletonizing the skull base. We took down the agger nasi. Frontal sinus outflow tract identified with the curved image guidance seeker. This was widened with microdebrider and Hosemann punch. Attention was then turned to the inferior turbinates. They were injected with 1% lidocaine with 1:100,000 epinephrine. A stab incision was made at the anterior head of the left inferior turbinate, and the inferior turbinate microdebrider blade was used to remove the turbinate tissue until adequate space was made in the nasal cavity. The same procedure was then performed on the contralateral side. The Ashe elevator was then used to out-fracture the turbinates bilaterally. Tristan splints covered in bactroban ointment were then placed along the septum bilaterally and secured using a 2-0 Prolene stitch with the stitch tied in the left nares. This was the end of our procedure. Patient's care was turned over to the anesthesia team. They were awakened, extubated and transferred to the PACU in stable condition. [facility] 01-09-2023 Note Formatting of this n ote is different from the original. Date: 01/09/2023 Location: [facility] Name: Joie Young : 1985, Diagnosis Pre-op Diagnosis * Chronic maxillary sinusitis [J32.0] * Nasal polyp, unspecified [J33.9] * Hypertrophy of nasal turbinates [J34.3] * Deviated nasal septum [J34.2] Post-op Diagnosis * Chronic maxillary sinusitis [J32.0] * Nasal polyp, unspecified [J33.9] * Hypertrophy of nasal turbinates [J34.3] * Deviated nasal septum [J34.2] Procedures nasal septal reconstruction with bilateral inferior turbinate reduction; functional endoscopic sinus surgery maxillary, frontal, bundle nasal/sinus endocopy, total ethmoidectomy, sphenoidotomy removal from sphenoid sinus 34857 - [place] SEPTOPLASTY/SUBMUCOUS RESECJ W/WO CARTILAGE GRF SUBMUCOUS RESECTION INFERIOR TURBINATE 61986 - [place] SUBMUCOUS RESCJ INFERIOR TURBINATE PRTL/COMPL NASAL SINUS ENDOCOPY TOTAL INCLUDING SPHENOIDOTOMY WITH REMOVAL TISSUE FROM SPHENOID SINUS 47009 - [place] NASAL/SINUS NDSC TOT W/SPHENDT W/SPHEN TISS [facility] Surgeons * Jenny Littlejohn - Primary Procedure Summary Anesthesia: General ASA: III Estimated Blood Loss: 200 mL Drains: * None in log * Specimens ID Source Type Tests Collected By Collected At Frozen? Priority Lab ID 1 Nose Tissue TISSUE EXAM Jenny Littlejohn MD 01/09/23 0915 No Routine Description: 1.right and left sinus contents Staff: Capsule Machine Operator: Lydia Gunderson RN Scrub Person: Garrett Randhawa Findings: bilateral chronic sinusitis with deviated nasal septum and inferior turbinate hypertrophy Complications: None; patient tolerated the procedure well. Specimens Collected: Order Name Source Comment Collection Info Order Time TISSUE EXAM Nose Pre-op diagnosis: Chronic maxillary sinusitis [J32.0] Nasal polyp, unspecified [J33.9] Hypertrophy of nasal turbinates [J34.3] Deviated nasal septum [J34.2] Collected By: Jenny Littlejohn MD 01/09/2023 9:28 AM Wound Class: Class II: Clean-Contaminated Blood Products: None Prophylactic Antibiotics: Pre-operative antibiotics were not given because antibiotics are not indicated for this procedure. [facility] 01-09-2023 Note Formatting of this n ote might be different from the original. Airway removed by RN. Patient instructed to deep breathe and cough. Repositioned for discomfort [facility] 01-09-2023 Note Formatting of this n ote might be different from the original. Instructions with patient and . Questions answered. [facility] 01-09-2023 Note Formatting of this n ote might be different from the original. After patient was discharged she requested a little more time to rest before leaving our center. Request granted. present. Patient is slight nauseated and dizzy. [facility] 01-09-2023 Note Formatting of this n ote might be different from the original. Patient left the center feeling better. Pain 5/10. Nose pad was changed for moderate bloody drainage. [facility] 01-09-2023 Note Formatting of this n ote might be different from the original. Airway removed by RN. Patient instructed to deep breathe and cough. Repositioned for discomfort [facility] 01-09-2023 Note Formatting of this n ote might be different from the original. Instructions with patient and . Questions answered. [facility] 01-09-2023 Note Formatting of this n ote might be different from the original. After patient was discharged she requested a little more time to rest before leaving our center. Request granted. present. Patient is slight nauseated and dizzy. [facility] 01-09-2023 Note Formatting of this n ote might be different from the original. Patient left the center feeling better. Pain 5/10. Nose pad was changed for moderate bloody drainage. [facility] 01-01-2023 Note Patient: Joie Young Procedure Information Date/Time: 01/09/23929 Procedures: nasal septal reconstruction with bilateral inferior turbinate reduction; functional endoscopic sinus surgery maxillary, frontal, bundle nasal/sinus endocopy, total ethmoidectomy, sphenoidotomy removal from sphenoid sinus (Bilateral: Nose) - 90 mins SUBMUCOUS RESECTION INFERIOR TURBINATE (Bilateral: Nose) NASAL SINUS ENDOCOPY TOTAL INCLUDING SPHENOIDOTOMY WITH REMOVAL TISSUE FROM SPHENOID SINUS (Bilateral) Location: [facility] / [facility] OR Surgeons: Jenny Littlejohn MD Relevant Problems Anesthesia (+) PONV (postoperative nausea and vomiting) /Renal (+) Hydronephrosis with urinary obstruction due to ureteral calculus (+) Kidney stone Neuro/Psych (+) Post depression Other (+) Encounter for supervision of other normal Past Medical History: Past Medical History: No date: ADHD No date: Asthma No date: BMI 36.0-36.9,adult No date: Depression 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 Boggs 10/14/2013: SECTION, LOW TRANSVERSE Comment: Dr Vanessa No date: LAPAROSCOPY DIAGNOSTIC / BIOPSY / ASPIRATION / LYSIS Comment: x3 For endometriosis 03/19/2004: OVARIAN CYST REMOVAL; Bilateral No date: TONSILLECTOMY (HISTORICAL) Social History: TOBACCO: reports that she has never smoked. She has never been exposed to tobacco smoke. She has never used smokeless tobacco. ETOH: reports that she does not currently use alcohol. Social History Substance and Sexual Activity Drug Use No Family History: Family History Problem Relation Name Age of Onset ? Hypertension Father ? Cancer Maternal Grandfather blood cancer ? Diabetes Father ? Colon cancer Neg Hx Screening: Having periods Clinical information reviewed: Tobacco Allergies Meds Med Hx Surg Hx OB Status Fam Hx Soc Hx Physical Exam Airway Mallampati: III TM distance: >3 FB Neck ROM: full Mouth Open: normalendotracheal tube not in place Cardiovascular Comments: Interpretive Statements Sinus rhythm Probable left atrial enlargement Electronically Signed On 10-13-2021 22:29:33 EDT by Kwadwo Howell Dental Comments: Crowns back left dentition normal Pulmonary Abdominal (+) obese Anesthesia Plan patient is NPO appropriate Any family history or previous problems with anesthesia (mother's treachea is deviated ) ASA 3 general and TIVA Any family history or previous problems with anesthesia (mother's treachea is deviated ) The patient is not a current smoker. Anesthetic plan and risks discussed with patient. BETTYE Screening STOP-Bang Total Score: 1 Labs: Lab Results Component Value Date WBC 4.8 06/22/2022 HGB 13.2 06/22/2022 HCT 39.1 06/22/2022 MCV 82.7 06/22/2022 PLT 292 06/22/2022 Lab Results Component Value Date NA 139 06/22/2022 K 3.1 (L) 06/22/2022 CL 105 06/22/2022 CO2 29 06/22/2022 BUN 9 06/22/2022 CREATININE 0.65 06/22/2022 GLUCOSE 99 06/22/2022 CALCIUM 9.0 06/22/2022 PROT 7.6 06/22/2022 ALKPHOS 53 06/22/2022 AST 26 06/22/2022 ALT 29 06/22/2022 EGFR >90.0 06/22/2022 No echocardiogram results found for the past 14 days No results found for this or any previous visit. [facility] 01-01-2023 Note Comprehensive Pre Hernadez rgical History and Physical ? Name: Joie Young : 1985 (Age-37 y.o.) Date of Service: Pt seen/examined on 01/01/2023 Procedure Information Date/Time: 01/09/23 0930 Procedures: nasal septal reconstruction with bilateral inferior turbinate reduction; functional endoscopic sinus surgery maxillary, frontal, bundle nasal/sinus endocopy, total ethmoidectomy, sphenoidotomy removal from sphenoid sinus (Bilateral: Nose) - 90 mins SUBMUCOUS RESECTION INFERIOR TURBINATE (Bilateral: Nose) NASAL SINUS ENDOCOPY TOTAL INCLUDING SPHENOIDOTOMY WITH REMOVAL TISSUE FROM SPHENOID SINUS (Bilateral) Location: [facility] 2 / [facility] OR Surgeons: Jenny Littlejohn MD Chief Complaint: Chronic sinus infections with nasal polyps, deviated septum ASSESSMENT/PLAN: Patient is considered intermediate risk for this intermediate level 1 risk procedure/surgery () with no reducible risk factors. Based on the above evaluation, the benefits of the planned procedure likely exceed the risks. The patient is medically optimized to proceed with the planned procedure without any further cardiopulmonary testing. 1) Chronic maxillary sinusitis [J32.0] Nasal polyp, unspecified [J33.9] Hypertrophy of nasal turbinates [J34.3] Deviated nasal septum [J34.2] - Managed per surgery 2) Asthma - Managed by pcp - Denies ever needing intubated for their asthma - Per patient, feels at baseline - Lungs CTA. No obvious distress on exam. - Continue inhalers day of surgery. 3) semaglutide for weight loss -hold 7 days prior to surgery - 20 pound weight loss 4) Depression/Anxiety - feels controlled on medication - Yes, zoloft Klonopin - Patient may benefit from antianxiety medication DOS 5)GERD -controlled on H2 khloe/PPI -off PPI -avoidance of triggers encouraged 6)Migraines - Managed by - pcp - abortive therapy - nurteq - prophylaxis - no 7) Hepatic Lesion [id number] -liver wedge biopsy 10/2022 Dr Salinas no cancer patient states. 8)Post-Op Nausea and Vomiting - consider additional antiemetic measures perioperatively -mild per patient 9) -ADHD -no medication. Visit Type: Pre-Admission Testing Visit Labs Ordered: NO - NOT INDICATED FOR THIS PROCEDURE Sleep Referral Ordered: NO - NEGATIVE SCREEN PER SLEEP REFERRAL PROTOCOL Total time spent (which include face to face and non face to face encounters) : 30 minutes Toxic drug monitoring/narrow therapeutic index drug monitoring : # Drug name : NA # Route administered : NA # Method of monitoring : NA [facility] Protocol referenced includes: 1. Anesthesia Lab Protocol Orders 2. Perioperative Cardiovascular Risk Assessment 3. Anesthesia Assessment 4. Pain Assessment and Acute Pain Service Consult (if appropriate) 5. Medical Clearance/Consult from Internal Medicine ([facility]) 6. Shower/Wash Order (for designated surgeries) 7. BETTYE Screen and Sleep Clinic Referral (if appropriate) History Of Present Illness: 37 y.o. female who we are asked to see/evaluate by [place] [id number] for pre-operative evaluation prior to . nasal septal reconstruction with bilateral inferior turbinate reduction; functional endoscopic sinus surgery maxillary, frontal, bundle nasal/sinus endocopy, total ethmoidectomy, sphenoidotomy removal from sphenoid sinus (Bilateral: Nose) [28653 CPT(R)] - 90 mins SUBMUCOUS RESECTION INFERIOR TURBINATE (Bilateral: Nose) [96555 CPT(R)] NASAL SINUS ENDOCOPY TOTAL INCLUDING SPHENOIDOTOMY WITH REMOVAL TISSUE FROM SPHENOID SINUS (Bilateral) [19911 CPT(R)] Anesthesia type: General ? Joie Young is a 37 y.o. yo female who presents to clinic today for evaluation of recurrent sinus infections. Patient states that at least once a month for several years now she gets facial pain and pressure predominantly over the maxillary sinuses as well as drainage down the back of her throat mucopurulent in consistency. She does not endorse any nasal obstruction states her sense of smell is about 50% of what it used to be after she got COVID a couple years ago. She has been on nasal steroids Astelin as well as saline sprays for several years now without any benefit. Estimates she gets between 6-12 infections per year she did have recent CT scan of the neck showed some of the sinonasal anatomy showed a cyst or polyp within the maxillary sinus. She denies any previous trauma she does note she gets ear pain fullness with the sinus infection she has has history of ear tubes as a child. No other head neck related surgeries no head neck trauma no other concerns at this time. 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 [facility] 01-01-2023 Anesthesiology Preoperative evaluation and management note Patient: Joie Young Procedure Information Date/Time: 01/09/23 3911 Procedures: nasal septal reconstruction with bilateral inferior turbinate reduction; functional endoscopic sinus surgery maxillary, frontal, bundle nasal/sinus endocopy, total ethmoidectomy, sphenoidotomy removal from sphenoid sinus (Bilateral: Nose) - 90 mins SUBMUCOUS RESECTION INFERIOR TURBINATE (Bilateral: Nose) NASAL SINUS ENDOCOPY TOTAL INCLUDING SPHENOIDOTOMY WITH REMOVAL TISSUE FROM SPHENOID SINUS (Bilateral) Location: [place] [facility] 2 / [facility] OR Surgeons: Jenny Littlejohn MD Relevant Problems Anesthesia (+) PONV (postoperative nausea and vomiting) /Renal (+) Hydronephrosis with urinary obstruction due to ureteral calculus (+) Kidney stone Neuro/Psych (+) Post depression Other (+) Encounter for supervision of other normal Past Medical History: Past Medical History: No date: ADHD No date: Asthma No date: BMI 36.0-36.9,adult No date: Depression 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 Boggs 10/14/2013: SECTION, LOW TRANSVERSE Comment: Dr Vanessa No date: LAPAROSCOPY DIAGNOSTIC / BIOPSY / ASPIRATION / LYSIS Comment: x3 For endometriosis 03/19/2004: OVARIAN CYST REMOVAL; Bilateral No date: TONSILLECTOMY (HISTORICAL) Social History: TOBACCO: reports that she has never smoked. She has never been exposed to tobacco smoke. She has never used smokeless tobacco. ETOH: reports that she does not currently use alcohol. Social History Substance and Sexual Activity Drug Use No Family History: Family History Problem Relation Name Age of Onset Hypertension Father Cancer Maternal Grandfather blood cancer Diabetes Father Colon cancer Neg Hx Screening: Having periods Clinical information reviewed: Tobacco Allergies Meds Med Hx Surg Hx OB Status Fam Hx Soc Hx Physical Exam Airway Mallampati: III TM distance: >3 FB Neck ROM: full Mouth Open: normalendotracheal tube not in place Cardiovascular Comments: Interpretive Statements Sinus rhythm Probable left atrial enlargement Electronically Signed On 10-13-2021 22:29:33 EDT by Kwadwo Howell Dental Comments: Crowns back left dentition normal Pulmonary Abdominal (+) obese Anesthesia Plan patient is NPO appropriate Any family history or previous problems with anesthesia (mother's treachea is deviated ) ASA 3 general and TIVA Any family history or previous problems with anesthesia (mother's treachea is deviated ) The patient is not a current smoker. Anesthetic plan and risks discussed with patient. BETTYE Screening STOP-Bang Total Score: 1 Labs: Lab Results Component Value Date WBC 4.8 06/22/2022 HGB 13.2 06/22/2022 HCT 39.1 06/22/2022 MCV 82.7 06/22/2022 PLT 292 06/22/2022 Lab Results Component Value Date NA 139 06/22/2022 K 3.1 (L) 06/22/2022 CL 105 06/22/2022 CO2 29 06/22/2022 BUN 9 06/22/2022 CREATININE 0.65 06/22/2022 GLUCOSE 99 06/22/2022 CALCIUM 9.0 06/22/2022 PROT 7.6 06/22/2022 ALKPHOS 53 06/22/2022 AST 26 06/22/2022 ALT 29 06/22/2022 EGFR >90.0 06/22/2022 No echocardiogram results found for the past 14 days No results found for this or any previous visit. [facility] Work Phone: 01-01-2023 Evaluation + Plan note Associated Problem(s): BMI 38.0-38.9,adult - Continuing to see weight loss on Ozempic, can continue using. - Feels pelvic pain improves while losing inches. [facility] 01-01-2023 Miscellaneous Notes Associated Problem(s): BMI 38.0-38.9,adult - Continuing to see weight loss on Ozempic, can continue using. - Feels pelvic pain improves while losing inches. Associated Problem(s): Endometriosis determined by laparoscopy - Continue taking Slynd. - Continue Sprix, use sparingly for worst pain. Will have to stop after ENT surgery. - Considering surgery in a few months. Will get her scheduled with Dr. Estevez for follow up in 3 months, can decide if she is ready then. Associated Problem(s): Pelvic pain - PFPT only 50% helpful, learned to recognize when hip out of alignment and slightly helpful for dyspareunia. - Keep taking Sprix to help. Will have to stop for 6 months due to surgery. - Would like to defer pudendal nerve blocks, TPI's, or Botox at this time. - Follow-up in 3 months or sooner for continued pain documented in this encounter [facility] 01-01-2023 Evaluation + Plan note Associated Problem(s): Endometriosis determined by laparoscopy - Continue taking Slynd. - Continue Sprix, use sparingly for worst pain. Will have to stop after ENT surgery. - Considering surgery in a few months. Will get her scheduled with Dr. Estevez for follow up in 3 months, can decide if she is ready then. [facility] 01-01-2023 Evaluation + Plan note Associated Problem(s): Pelvic pain - PFPT only 50% helpful, learned to recognize when hip out of alignment and slightly helpful for dyspareunia. - Keep taking Sprix to help. Will have to stop for 6 months due to surgery. - Would like to defer pudendal nerve blocks, TPI's, or Botox at this time. - Follow-up in 3 months or sooner for continued pain [facility] 01-01-2023 History of Presen t illness Narrative Images from the original note were not included. Joie Young 01/01/2021 37 y.o. Chief Complaint Patient presents with Pelvic Pain 6 month FU; 50% improvement with PT No LMP recorded. HPI: Joie Young is a 37 y.o. female presents for follow up for concern for endometriosis. Last visit plan was to continue Slynd and Sprix, attend 2nd round of PFPT, and continuing Ozempic for weight loss. Having ENT surgery on 01/09 and will have to stop Sprix for 6 months. Usually only needs it once a month for her worst pain. Still taking Slynd and loves it . Only feeling 50% improved with PFPT, feels it helped more the first time. Able to recognize when hip is out of alignment and correct herself. Mildly helped dyspareunia. Still on Ozempic, stopped in July and restarted last month. Noticed while she is taking it, she has been losing inches on her waistline and it has helped decrease her pelvic pain. Not losing weight as much but is content with this. Considering resection of endometriosis in the future. Would like to hold off on injections until she develops worse pain. No other complaints today. OB History Para Term AB Living 2 2 2 2 SAB IAB Ectopic Multiple Live Births 2 # Outcome Date GA Lbr Allen/2nd Weight Sex Delivery Anes PTL Lv 2 Term 10/14/14 37w4d M CS-LTranv Spinal Y BOBBI 1 Term 04/30/13 7 lb 7 oz (3.374 kg) F CS-Unspec BOBBI Past Medical History: Diagnosis Date ADHD Asthma BMI 36.0-36.9,adult Depression Double ureter Left Endometriosis History of blood transfusion 2013 when she had daughter Liver mass Migraine Past Surgical History: Procedure Laterality Date SECTION (HISTORICAL) 04/19/2013 Dr. Boggs SECTION, LOW TRANSVERSE 10/14/2013 Dr Vanessa LAPAROSCOPY DIAGNOSTIC / BIOPSY / ASPIRATION / LYSIS x3 For endometriosis OVARIAN CYST REMOVAL Bilateral 03/19/2004 TONSILLECTOMY (HISTORICAL) Family History Problem Relation Name Age of Onset Hypertension Father Cancer Maternal Grandfather blood cancer Diabetes Father Colon cancer Neg Hx Social History Tobacco Use Smoking status: Never Passive exposure: Never Smokeless tobacco: Never Vaping Use Vaping Use: Never used Substance Use Topics Alcohol use: Not Currently Drug use: No MEDICATIONS: Current Outpatient Medications Medication Sig Dispense Refill albuterol 0.63 MG/3ML nebulizer solution 0.63 MG (3 mL) inhaled every 4 hours As Needed for shortness of breath or wheezing albuterol 108 (90 Base) MCG/ACT inhaler 2 PUFF INHALATION EVERY 4 HOURS As Needed for shortness OF breath or FOR WHEEZING clonazePAM (KlonoPIN) 0.5 MG tablet Take 0.5 mg by mouth every morning. EPINEPHrine (Epipen) 0.3 MG/0.3ML injection syringe 0.3 mg (0.3 mL) intramuscularly once for allergic reactions; as a single dose; may repeat once famotidine (Pepcid) 20 MG tablet Take 1 tablet (20 mg) by mouth 2 times daily for 15 days. 30 tablet 0 ketorolac (Sprix) nasal Administer 1 spray into each nostril every 8 hours as needed for moderate pain (4-6). 5 each 3 mometasone (Nasonex) 50 MCG/ACT nasal spray Administer 2 sprays into each nostril 2 times daily. 17 g 11 Nurtec 75 MG tablet dispersible 75 mg PO ONCE As Needed for migraine headache; may take everyother day for migriane ondansetron (Zofran) 8 MG tablet Take 8 mg by mouth in the morning and 8 mg in the evening. SEMAGLUTIDE,0.25 OR 0.5MG/DOS, SC sertraline (Zoloft) 100 MG tablet Take 100 mg by mouth daily. Slynd 4 MG tablet Take 1 tablet by mouth daily Take 1 active tablet daily, do not take placebo pills. Start taking next pack immediately. 28 tablet 11 No current facility-administered medications for this visit. ALLERGIES: Allergies as of 01/01/2023 - Reviewed 01/01/2023 Allergen Reaction Noted Clarithromycin 06/01/2022 Galcanezumab 03/31/2021 Sulfamethoxazole 11/18/2020 Sumatriptan 06/04/2020 Trimethoprim 11/18/2020 Verapamil Rash 06/29/2020 Galcanezumab-gnlm 03/31/2021 Levofloxacin 01/14/2019 Prednisone Hives 01/14/2019 Review of Systems: Review of Systems Constitutional: Negative for chills and fever. Gastrointestinal: Negative for abdominal pain, nausea and vomiting. Genitourinary: Positive for pelvic pain. Negative for decreased urine volume, difficulty urinating, dysuria, flank pain, frequency, genital sores, hematuria, menstrual problem, urgency, vaginal bleeding, vaginal discharge and vaginal pain. Skin: Negative for color change and rash. All other systems reviewed and are negative. Physical Exam: BP 121/81 Pulse 96 Ht 5' 3 (1.6 m) Wt 219 lb 11.2 oz (99.7 kg) BMI 38.92 kg/m Physical Exam Vitals reviewed. Constitutional: General: She is not in acute distress. Appearance: Normal appearance. She is not ill-appearing or toxic-appearing. HENT: Head: Normocephalic and atraumatic. Pulmonary: Effort: Pulmonary effort is normal. No respiratory distress. Neurological: Mental Status: She is alert. Mental status is at baseline. Psychiatric: Mood and Affect: Mood normal. Behavior: Behavior normal. Judgment: Judgment normal. ASSESSMENT& PLAN: Pelvic pain - PFPT only 50% helpful, learned to recognize when hip out of alignment and slightly helpful for dyspareunia. - Keep taking Sprix to help. Will have to stop for 6 months due to surgery. - Would like to defer pudendal nerve blocks, TPI's, or Botox at this time. - Follow-up in 3 months or sooner for continued pain Endometriosis determined by laparoscopy - Continue taking Slynd. - Continue Sprix, use sparingly for worst pain. Will have to stop after ENT surgery. - Considering surgery in a few months. Will get her scheduled with Dr. Estevez for follow up in 3 months, can decide if she is ready then. BMI 38.0-38.9,adult - Continuing to see weight loss on Ozempic, can continue using. - Feels pelvic pain improves while losing inches. OBI [place] documented in this encounter [facility] 11-16-2022 History of Presen t illness Narrative Assessment and Recommendations: Joie Young is a 37 y.o. female here for acute recurrent sinusitis deviated nasal septum inferior turban hypertrophy -Patient did have active sinus infection on exam today we will prescribe the patient antibiotics steroid therapy and see her back in 2 months did offer the patient sinus surgery again she is reluctant at this time her had this done before and it did not go well she will follow-up with us in 2 months for repeat assessment [facility] Note HPI: Joie Young is a 37 y.o. yo female who presents to clinic today for evaluation of recurrent sinus infections. Patient states that at least once a month for several years now she gets facial pain and pressure predominantly over the maxillary sinuses as well as drainage down the back of her throat mucopurulent in consistency. She does not endorse any nasal obstruction states her sense of smell is about 50% of what it used to be after she got COVID a couple years ago. She has been on nasal steroids Astelin as well as saline sprays for several years now without any benefit. Estimates she gets between 6-12 infections per year she did have recent CT scan of the neck showed some of the sinonasal anatomy showed a cyst or polyp within the maxillary sinus. She denies any previous trauma she does note she gets ear pain fullness with the sinus infection she has has history of ear tubes as a child. No other head neck related surgeries no head neck trauma no other concerns at this time. Interval History 09/07/2022: Patient presents today for follow-up. Overall she states that she had a sinus infection just a few weeks ago and is currently getting over that however no new change in her overall symptoms. I did personally review the patient and her CT scan which did show a 1.6 cm polyp in the right maxillary sinus left-sided septal deviation but no active infection Interval history 11/16/2022: Patient presents to clinic for 2 month follow-up for recurrent sinusitis, polyposis. Pt was placed on saline washes, nasonex. Patient reports she has been doing well until the past 2 weeks, is now reporting bilateral ear congestion, cough, otorrhea, sinus pressure, headache. Pt reports discolored drainage that is worse in the AM. PMH: Past Medical History: Diagnosis Date ADHD Asthma BMI 36.0-36.9,adult Depression Double ureter Left Endometriosis History of blood transfusion 2013 when she had daughter Liver mass Migraine Allergies: Allergies Allergen Reactions Clarithromycin Other reaction(s): N&V Galcanezumab Other reaction(s): rash and stomach aches for 48 hrs Sulfamethoxazole Other reaction(s): DIARRHEA AND HEADACHES Sumatriptan Other reaction(s): hung over, hung over Trimethoprim Other reaction(s): DIARRHEA AND HEADACHES Verapamil Rash Galcanezumab-Gnlm Levofloxacin Other reaction(s): Other (See Comments), Other (See Comments), Other: See Comments Leg swelling Prednisone Hives Able to take- just not in high doses Medications: Current Outpatient Medications: albuterol 0.63 MG/3ML nebulizer solution, 0.63 MG (3 mL) inhaled every 4 hours As Needed for shortness of breath or wheezing, Disp: , Rfl: albuterol 108 (90 Base) MCG/ACT inhaler, 2 PUFF INHALATION EVERY 4 HOURS As Needed for shortness OF breath or FOR WHEEZING, Disp: , Rfl: Allergy Relief/Nasal Decongest 10-240 MG 24 hr tablet, Take 1 tablet by mouth daily., Disp: , Rfl: clonazePAM (KlonoPIN) 0.5 MG tablet, Take 0.5 mg by mouth every morning., Disp: , Rfl: EPINEPHrine (Epipen) 0.3 MG/0.3ML injection syringe, 0.3 mg (0.3 mL) intramuscularly once for allergic reactions; as a single dose; may repeat once, Disp: , Rfl: famotidine (Pepcid) 20 MG tablet, Take 1 tablet (20 mg) by mouth 2 times daily for 15 days., Disp: 30 tablet, Rfl: 0 ketorolac (Sprix) nasal, Administer 1 spray into each nostril every 8 hours as needed for moderate pain (4-6)., Disp: 5 each, Rfl: 3 methylphenidate CD (Metadate CD) 30 MG daily capsule, , Disp: , Rfl: mometasone (Nasonex) 50 MCG/ACT nasal spray, Administer 2 sprays into each nostril 2 times daily., Disp: 17 g, Rfl: 11 Nurtec 75 MG tablet dispersible, 75 mg PO ONCE As Needed for migraine headache; may take everyother day for migriane, Disp: , Rfl: ondansetron (Zofran) 8 MG tablet, Take 8 mg by mouth in the morning and 8 mg in the evening., Disp: , Rfl: SEMAGLUTIDE,0.25 OR 0.5MG/DOS, SC, , Disp: , Rfl: sertraline (Zoloft) 100 MG tablet, Take 100 mg by mouth daily., Disp: , Rfl: Slynd 4 MG tablet, Take 1 tablet by mouth daily Take 1 active tablet daily, do not take placebo pills. Start taking next pack immediately., Disp: 28 tablet, Rfl: 11 PSH: Past Surgical History: Procedure Laterality Date SECTION (HISTORICAL) 04/19/2013 Dr. Boggs SECTION, LOW TRANSVERSE 10/14/2013 Dr Vanessa LAPAROSCOPY DIAGNOSTIC / BIOPSY / ASPIRATION / LYSIS x3 For endometriosis OVARIAN CYST REMOVAL Bilateral 03/19/2004 TONSILLECTOMY (HISTORICAL) FH: Family History Problem Relation Name Age of Onset Hypertension Father Cancer Maternal Grandfather blood cancer Diabetes Father Colon cancer Neg Hx SH: Social History Socioeconomic History Marital status: Spouse name: Not on file Number of children: Not on file Years of education: Not on file Highest education level: Not on file Occupational History Not on file Tobacco Use Smoking status: Never Passive exposure: Never Smokeless tobacco: Never Vaping Use Vaping Use: Never used Substance and Sexual Activity Alcohol use: Not Currently Drug use: No Sexual activity: Yes control/protection: OCP Other Topics Concern Not on file Social History Narrative Not on file Social Determinants of Health Financial Resource Strain: Not on file Food Insecurity: Not on file Transportation Needs: Not on file Physical Activity: Not on file Stress: Not on file Social Connections: Not on file Intimate Partner Violence: Not on file Housing Stability: Not on file Physical Exam: Constitutional: General: Patient is not in acute distress. Appearance: Patient is well-developed. Eyes: Conjunctiva/sclera: Conjunctivae normal. Pupils: Pupils are equal, round, and reactive to light. HENT: Jaw: No trismus. Nose: As shaped septal deflection present inferior turban hypertrophy Mouth: Mucous membranes are not pale, not dry and not cyanotic. No oral lesions. Pharynx: Uvula midline. No oropharyngeal exudate or uvula swelling. Tonsils: No tonsillar exudate. No abnormal masses or lesions Thyroid: No significant thyromegaly. Trachea: Trachea and phonation normal. No tracheal deviation. Pulmonary: Effort: Pulmonary effort is normal. No respiratory distress. Breath sounds: No stridor. Musculoskeletal: Head: Normocephalic and atraumatic. Neck: Full passive range of motion without pain, neck supple. Skin: General: Skin is warm and dry. Findings: No erythema or rash. Neurological: Cranial Nerves: No cranial nerve deficit. Sensory: No sensory deficit. Coordination: Coordination normal. Extremities: No significant peripheral edema or varicosities Psychiatric: Mood and Affect: Mood and affect normal. Cognition and Memory: Cognition and memory normal. Previous nasal endoscopy form revealing right-sided septal deviation inferior turban hypertrophy narrowed ostiomeatal complexes bilaterally with thick secretions documented in this encounter [facility] 10-11-2022 Note HNO ID: [id number] Author: Barbie Moe PA-C Service: ? Author Type: Physician Prize Coordinator Type: Progress Notes Filed: 10/11/2022 8:37 AM Note Text: 10/11/2022 Patient presents with: UTI: Urgency, pain level 3-5/10, burning without/with urination, hx of kidney stones and uti's, has tried pyridium with some help, SUBJECTIVE: This is a 37 year old that is here today for possible UTI symptoms. The patient complains of dysuria, urinary urgency, and urinary frequency x 2 days. Azo helps but not resolving. Right flank aches a little. She has a h/o recurring kidney stones and UTIs. Last stone and UTI was Feb 2022 (6 months ago). States Bactrim causes stomach upset States macrobid doesn't work States Levaquin caused leg pain in the past. The patient denies fever, chills, abominal pain, lower abdominal pressure, bladder spasms, back pain, or n/v. The patient denies any discharge, lesions, odor, change in sexual partners, or concern for STIs. Dysuria pain: 2 out of 10 with 10 being the worst pain. The lower abdominal pain is 0 out of 10 with 10 being the worst pain. The back/flank pain is 5 out of 10 with 10 being the worst pain. Self-treatment:. Azo The severity is mild and the symptoms are not improving. The patient has not had similar symptoms in the last 3 months. The patient has not had an antibiotic in the last 3 months. LMP:. - Reviewed meds, OTCs and supplements. Meds reviewed. Allergies and medications reviewed. Reviewed allergies, medications, social history, and past medical history. Barriers to learning: none. PAST MEDICAL HISTORY Diagnosis Date Asthma ALLERGIES Levaquin [Levofloxacin] and Prednisone MEDICATIONS Current Outpatient Medications Medication Sig clonazePAM (KLONOPIN) 0.5 mg tablet Take 0.5 mg by mouth every morning. SLYND 4 mg (28) tabet Take 1 tablet by mouth daily Take 1 active tablet daily, do not take placebo pills. Start taking next pack immediately. methylphenidate ER 54 mg tablet Take 54 mg by mouth once daily. azelastine (ASTELIN,ASTEPRO) 0.1% nasal spray Use 1 [place] in each nostril twice daily. albuterol sulfate 90 mcg/actuation aepb Inhale as instructed. sertraline (ZOLOFT) 50 mg tablet Take 50 mg by mouth. lidocaine viscous (XYLOCAINE) 2 % solution Take 5 mL by mouth every 3 hours as needed. Swish and spit 5 ml every 3 hours as need for pain (Patient not taking: Reported on 10/11/2022) Dgbdvifwghyowev-Uaqnqlczp-PZ (BROMFED DM) 2-30-10 mg/5 mL syrup Take 10 mL by mouth four times daily as needed. (Patient not taking: Reported on 10/11/2022) loratadine/pseudoephedrine (LORATA-D ORAL) Take by mouth. (Patient not taking: Reported on 10/11/2022) benzonatate (TESSALON PERLES) 100 mg capsule Take 2 capsules by mouth three times daily as needed for Cough. (Patient not taking: Reported on 05/09/2021) MISAEL 24 FE 1 mg-20 mcg (24)/75 mg (4) tab TAKE 1 TABLET BY MOUTH DAILY. Start new pack every 24 days. (Patient not taking: Reported on 10/11/2022) No current facility-administered medications for this visit. Medications and allergies reviewed by this provider. SOCIAL HISTORY Social History Tobacco Use Smoking status: Never Smokeless tobacco: Never Substance Use Topics Alcohol use: No Drug use: No REVIEW OF SYSTEMS ROS: constitutional-neg, heent-neg, heart-neg, respiratory-neg, GI-neg, -concern for UTI, skin-neg, lymph-neg, neuro-neg, psych-neg- All systems neg except as noted above in HPI. OBJECTIVE: BP 108/61 (BP Site: Left Arm, BP Position: Sitting, BP Cuff Size: Large Adult) Pulse 90 Temp 36.6 ?C (97.8 ?F) (Temporal) Resp 18 Ht 160 cm (5' 3 ) Wt 97.8 kg (215 lb 9.6 oz) LMP 05/15/2017 (Approximate) SpO2 96% BMI 38.19 kg/m? . Vital signs reviewed by this provider. Physical Exam Vitals reviewed. Constitutional: General: She is not in acute distress. Appearance: Normal appearance. She is well-developed and normal weight. She is not ill-appearing, toxic-appearing or diaphoretic. Cardiovascular: Rate and Rhythm: Normal rate and regular rhythm. Heart sounds: Normal heart sounds. Pulmonary: Effort: Pulmonary effort is normal. Breath sounds: Normal breath sounds and air entry. Abdominal: General: Abdomen is flat. Bowel sounds are normal. Palpations: Abdomen is soft. Tenderness: There is abdominal tenderness in the suprapubic area. There is right CVA tenderness. There is no left CVA tenderness, guarding or rebound. Neurological: Mental Status: She is alert. Psychiatric: Behavior: Behavior is cooperative. Taking Azo: orange Component Latest Ref Rng AND Units 10/11/2022 GLUCOSE UA (POCT) Negative mg/dL 100 (A) BILIRUBIN UA (POCT) Negative Small (A) KETONE UA (POCT) Negative mg/dL Trace SPECIFIC GRAVITY UA (POCT) 1.005 - 1.030 1.025 HEMOGLOBIN/BLOOD UA (POCT) Negative Trace-intact (A) PH UA (POCT) 4.5 - 8.0 5.0 PROTEIN UA (POCT) Negative mg/dL 100 (A) URO (more content not included)... [facility] 09-07-2022 History of Presen t illness Narrative Assessment and Recommendations: Joie Young is a 37 y.o. female here for acute recurrent sinusitis deviated nasal septum inferior turban hypertrophy -I discussed with the patient potential treatment options including medical therapy versus elective endoscopic sinus surgery to help reduce the frequency of her infections. She would like to restart her nasal steroid as well as nasal saline irrigations patient was provided with nasal saline irrigation bottle today and will prescribe Nasonex spray. And will reassess in 2 months Otol[facility] Clinic Note HPI: Joie Young is a 37 y.o. yo female who presents to clinic today for evaluation of recurrent sinus infections. Patient states that at least once a month for several years now she gets facial pain and pressure predominantly over the maxillary sinuses as well as drainage down the back of her throat mucopurulent in consistency. She does not endorse any nasal obstruction states her sense of smell is about 50% of what it used to be after she got COVID a couple years ago. She has been on nasal steroids Astelin as well as saline sprays for several years now without any benefit. Estimates she gets between 6-12 infections per year she did have recent CT scan of the neck showed some of the sinonasal anatomy showed a cyst or polyp within the maxillary sinus. She denies any previous trauma she does note she gets ear pain fullness with the sinus infection she has has history of ear tubes as a child. No other head neck related surgeries no head neck trauma no other concerns at this time. Interval History 09/07/2022: Patient presents today for follow-up. Overall she states that she had a sinus infection just a few weeks ago and is currently getting over that however no new change in her overall symptoms. I did personally review the patient and her CT scan which did show a 1.6 cm polyp in the right maxillary sinus left-sided septal deviation but no active infection PMH: Past Medical History: Diagnosis Date ADHD Asthma BMI 36.0-36.9,adult Depression Double ureter Left Endometriosis History of blood transfusion 2013 when she had daughter Liver mass Migraine Allergies: Allergies Allergen Reactions Clarithromycin Other reaction(s): N&V Galcanezumab Other reaction(s): rash and stomach aches for 48 hrs Sulfamethoxazole Other reaction(s): DIARRHEA AND HEADACHES Sumatriptan Other reaction(s): hung over, hung over Trimethoprim Other reaction(s): DIARRHEA AND HEADACHES Verapamil Rash Galcanezumab-Gnlm Levofloxacin Other reaction(s): Other (See Comments), Other (See Comments), Other: See Comments Leg swelling Prednisone Hives Able to take- just not in high doses Medications: Current Outpatient Medications: albuterol 0.63 MG/3ML nebulizer solution, 0.63 MG (3 mL) inhaled every 4 hours As Needed for shortness of breath or wheezing, Disp: , Rfl: albuterol 108 (90 Base) MCG/ACT inhaler, 2 PUFF INHALATION EVERY 4 HOURS As Needed for shortness OF breath or FOR WHEEZING, Disp: , Rfl: Allergy Relief/Nasal Decongest 10-240 MG 24 hr tablet, Take 1 tablet by mouth daily., Disp: , Rfl: clonazePAM (KlonoPIN) 0.5 MG tablet, Take 0.5 mg by mouth every morning., Disp: , Rfl: EPINEPHrine (Epipen) 0.3 MG/0.3ML injection syringe, 0.3 mg (0.3 mL) intramuscularly once for allergic reactions; as a single dose; may repeat once, Disp: , Rfl: famotidine (Pepcid) 20 MG tablet, Take 1 tablet (20 mg) by mouth 2 times daily for 15 days., Disp: 30 tablet, Rfl: 0 ketorolac (Sprix) nasal, Administer 1 spray into each nostril every 8 hours as needed for moderate pain (4-6)., Disp: 5 each, Rfl: 3 methylphenidate CD (Metadate CD) 30 MG daily capsule, , Disp: , Rfl: Nurtec 75 MG tablet dispersible, 75 mg PO ONCE As Needed for migraine headache; may take everyother day for migriane, Disp: , Rfl: ondansetron (Zofran) 8 MG tablet, Take 8 mg by mouth in the morning and 8 mg in the evening., Disp: , Rfl: SEMAGLUTIDE,0.25 OR 0.5MG/DOS, SC, , Disp: , Rfl: sertraline (Zoloft) 100 MG tablet, Take 100 mg by mouth daily., Disp: , Rfl: Slynd 4 MG tablet, Take 1 tablet by mouth daily Take 1 active tablet daily, do not take placebo pills. Start taking next pack immediately., Disp: 28 tablet, Rfl: 11 PSH: Past Surgical History: Procedure Laterality Date SECTION (HISTORICAL) 04/19/2013 Dr. Boggs SECTION, LOW TRANSVERSE 10/14/2013 Dr Vanessa LAPAROSCOPY DIAGNOSTIC / BIOPSY / ASPIRATION / LYSIS x3 For endometriosis OVARIAN CYST REMOVAL Bilateral 03/19/2004 TONSILLECTOMY (HISTORICAL) FH: Family History Problem Relation Name Age of Onset Hypertension Father Cancer Maternal Grandfather blood cancer Diabetes Father Colon cancer Neg Hx SH: Social History Socioeconomic History Marital status: Spouse name: Not on file Number of children: Not on file Years of education: Not on file Highest education level: Not on file Occupational History Not on file Tobacco Use Smoking status: Never Passive exposure: Never Smokeless tobacco: Never Vaping Use Vaping Use: Never used Substance and Sexual Activity Alcohol use: Not Currently Drug use: No Sexual activity: Yes control/protection: OCP Other Topics Concern Not on file Social History Narrative Not on file Social Determinants of Health Financial Resource Strain: Not on file Food Insecurity: Not on file Transportation Needs: Not on file Physical Activity: Not on file Stress: Not on file Social Connections: Not on file Intimate Partner Violence: Not on file Housing Stability: Not on file Physical Exam: Constitutional: General: Patient is not in acute distress. Appearance: Patient is well-developed. Eyes: Conjunctiva/sclera: Conjunctivae normal. Pupils: Pupils are equal, round, and reactive to light. HENT: Jaw: No trismus. Nose: As shaped septal deflection present inferior turban hypertrophy Mouth: Mucous membranes are not pale, not dry and not cyanotic. No oral lesions. Pharynx: Uvula midline. No oropharyngeal exudate or uvula swelling. Tonsils: No tonsillar exudate. No abnormal masses or lesions Thyroid: No significant thyromegaly. Trachea: Trachea and phonation normal. No tracheal deviation. Pulmonary: Effort: Pulmonary effort is normal. No respiratory distress. Breath sounds: No stridor. Musculoskeletal: Head: Normocephalic and atraumatic. Neck: Full passive range of motion without pain, neck supple. Skin: General: Skin is warm and dry. Findings: No erythema or rash. Neurological: Cranial Nerves: No cranial nerve deficit. Sensory: No sensory deficit. Coordination: Coordination normal. Extremities: No significant peripheral edema or varicosities Psychiatric: Mood and Affect: Mood and affect normal. Cognition and Memory: Cognition and memory normal. Previous nasal endoscopy form revealing right-sided septal deviation inferior turban hypertrophy narrowed ostiomeatal complexes bilaterally with thick secretions documented in this encounter [facility] 09-04-2022 History of Presen t illness Narrative [facility] AT [address] [place] [address] Dept: [phone] Dept PHYSICAL THERAPY DISCHARGE NOTE Pelvic Health Patient Name: Joie Young : 1985 Date of Service: 09/04/2022 Referring Provider: Mary Ann Ridley PA Diagnosis: Endometriosis determined by laparoscopy Reason for referral/Mechanism of injury: Pt has some GERD causing upper GI pain. Pt saw PA for yearly check up. Pt gets shooting pains random ~5 x/ month. Pt does not want sx and wanted to try PF PT again. Pt denies bladder issues/symptoms. R Lower back pain and R buttock pain. Pt. Denies pain with sexual activtiy, but notes cramping after. Precautions/Red Flags: None Subjective General Comments: Pt states she is doing good in general. Pt had some pain a couple of weeks ago, but pt states she does not feel it is muscular skeletal but more her endometriosis. Pt states she feels her symptoms are manageable. Pt is ready for discharge to an independent home program. Pain: Current: 0/10 Best: 0/10 Worst: 1/10 Current Level of Function: Independent Patient s Stated Goal: achieved. Objective Pt demonstrating good pelvic alignment. Assessment Pt progressed well and pain & symptoms resolved. Pt ready to transition to independent home program. Goals Resolved General/Ortho Patient will be independent with HEP. (Completed) Start: 07/10/22 Expected End: 10/09/22 Resolved: 07/31/22 Patient will report decreased pain at 0/10 in R LB/SI & buttock to be able to restore pain free function. (Completed) Start: 07/10/22 Expected End: 10/09/22 Resolved: 09/04/22 Pelvic Health Pt will reduce summary score on gender appropriate NIH-CPSI to 9/45 to improve patient's perceived quality of life (Completed) Start: 07/10/22 Expected End: 10/09/22 Resolved: 09/04/22 Plan Patient no longer requires skilled PT services and will be discharged at this time. Thank you for this referral. For any questions on this patient s course of therapy, please call the clinic for clarification. Treatment Therapeutic Activity # of Activities: 4 Therapeutic Activity 1: Re-assessment Activity 1 Comment: Re-assessment: Re-assessed patients objective & subjective measures, reviewed patients POC, addressed goals and patients progress. Discussed D/C planning, discussed continuation of current HEP for maximum benefit and carryover to maintain pain free function. Patient with verbal acknowledgement and understanding. Therapeutic Activity 2: HEP 09/04/22 pt is independent Activity 2 Comment: Self correction R anterior rotation, Stretches: Hip ADD., Hip ROT., HS, Hip flexor on chair. Therapeutic Activity 3: Re-assess SI Activity 3 Comment: 09/04/22: Pt demonstrating good pelvic alignment today. Time Entry Total Treatment Time Start Time: 1129 Stop Time: 1147 Time Calculation (min): 18 min PT Therapeutic Procedures Time Entry Therapeutic Activity Time Entry: 15 Katelyn Coto PT documented in this encounter [facility] 07-31-2022 History of Presen t illness Narrative Images from the original note were not included. [facility] AT [place] [id number] [place] [address] Dept: [phone] Dept PHYSICAL THERAPY TREATMENT Patient Name: Joie Young : 1985 Date of Service: 07/31/2022 Referring Provider: Mary Ann Ridley PA Diagnosis: Endometriosis determined by laparoscopy Reason for referral/Mechanism of injury: Pt has some GERD causing upper GI pain. Pt saw PA for yearly check up. Pt gets shooting pains random ~5 x/ month. Pt does not want sx and wanted to try PF PT again. Pt denies bladder issues/symptoms. R Lower back pain and R buttock pain. Pt. Denies pain with sexual activtiy, but notes cramping after. Precautions/Red Flags: None Subjective Pt with allergies. Otherwise she is doing good. Pt reports not much back pain. Compliance with HEP: Yes Objective Objective measurements not taken today. Treatment Therapeutic Activity # of Activities: 4 Therapeutic Activity 2: HEP 07/31/22 pt is independent Activity 2 Comment: Self correction R anterior rotation, Stretches: Hip ADD., Hip ROT., HS, Hip flexor on chair. Therapeutic Activity 3: Re-assess SI Activity 3 Comment: 07/31/22: Pt demonstrating good pelvic alignment today. Soft Tissue Mobilization Location: abdominal massage, STM to B R iliopsoas x 15 min. Assessment Skilled physical therapy interventions utilized to improve patient s impairments and work towards established goals. Patient response to treatment: Patient is making progress toward goals with overall reduced/resolving back pain and improved function Patient will benefit from continued physical therapy to re-assess and discuss transition to independent home program. The rationale for today s treatment was explained to the patient. Verbal cues were provided for correct form with all exercises. Advised patient to continue with Home Exercise Program (HEP). Goals General/Ortho Patient will report decreased pain at 0/10 in R LB/SI & buttock to be able to restore pain free function. (Progressing) Start: 07/10/22 Expected End: 10/09/22 Pelvic Health Pt will reduce summary score on gender appropriate NIH-CPSI to 9/45 to improve patient's perceived quality of life (Progressing) Start: 07/10/22 Expected End: 10/09/22 Plan Plan for next session: Re-assess and discuss transitioning to independent home program. Continue with MT Time Entry Total Treatment Time Start Time: 1353 Stop Time: 1418 Time Calculation (min): 25 min PT Therapeutic Procedures Time Entry Therapeutic Activity Time Entry: 8 Manual Therapy Time Entry: 15 Katelyn Coto PT documented in this encounter [facility] 07-24-2022 History of Presen t illness Narrative Images from the original note were not included. [facility] AT [address] [place] [address] Dept: [phone] Dept PHYSICAL THERAPY TREATMENT Patient Name: Joie Young : 1985 Date of Service: 07/24/2022 Referring Provider: Mary Ann Ridley PA Diagnosis: Endometriosis determined by laparoscopy Reason for referral/Mechanism of injury: Pt has some GERD causing upper GI pain. Pt saw PA for yearly check up. Pt gets shooting pains random ~5 x/ month. Pt does not want sx and wanted to try PF PT again. Pt denies bladder issues/symptoms. R Lower back pain and R buttock pain. Pt. Denies pain with sexual activtiy, but notes cramping after. Precautions/Red Flags: None Subjective Pt is tired from a busy week. Pt states her back feels OK and hips are OK , but still has intermittent R flank sharp pain sit>stand Compliance with HEP: Yes Objective Pt demonstrating good pelvic alignment. Mild R iliopsoas and QL tightness. Treatment Therapeutic Activity # of Activities: 4 Therapeutic Activity 2: HEP 07/24/22 pt is independent Activity 2 Comment: Self correction R anterior rotation, Stretches: Hip ADD., Hip ROT., HS, Hip flexor on chair. Therapeutic Activity 3: Re-assess SI Activity 3 Comment: 07/24/22: Pt demonstrating good pelvic alignment today. Assessment Skilled physical therapy interventions utilized to improve patient s impairments and work towards established goals. Patient response to treatment: Patient is making progress toward goals with maintaining good pelvic alignment and reducing pain. Pt with residual mm tightness R iliopsoas and QL Patient will benefit from continued physical therapy to address mm tightness and ST restrictions to eliminate pain. The rationale for today s treatment was explained to the patient. Verbal cues were provided for correct form with all exercises. Advised patient to continue with Home Exercise Program (HEP). Goals General/Ortho Patient will be independent with HEP. (Progressing) Start: 07/10/22 Expected End: 10/09/22 Patient will report decreased pain at 0/10 in R LB/SI & buttock to be able to restore pain free function. (Progressing) Start: 07/10/22 Expected End: 10/09/22 Pelvic Health Pt will reduce summary score on gender appropriate NIH-CPSI to 9/45 to improve patient's perceived quality of life (Progressing) Start: 07/10/22 Expected End: 10/09/22 Plan Plan for next session: Continue with MT Time Entry Total Treatment Time Start Time: 1354 Stop Time: 1419 Time Calculation (min): 25 min PT Therapeutic Procedures Time Entry Therapeutic Activity Time Entry: 2 Manual Therapy Time Entry: Katelyn Coto PT documented in this encounter [facility] 07-17-2022 History of Presen t illness Narrative Images from the original note were not included. [facility] TH[facility] AT [address] [place] [address] Dept: [phone] Dept PHYSICAL THERAPY TREATMENT Patient Name: Joie Young : 1985 Date of Service: 07/17/2022 Referring Provider: Mary Ann Ridley PA Diagnosis: Endometriosis determined by laparoscopy Reason for referral/Mechanism of injury: Pt has some GERD causing upper GI pain. Pt saw PA for yearly check up. Pt gets shooting pains random ~5 x/ month. Pt does not want sx and wanted to try PF PT again. Pt denies bladder issues/symptoms. R Lower back pain and R buttock pain. Pt. Denies pain with sexual activtiy, but notes cramping after. Precautions/Red Flags: None Subjective Pt states some days are better. Today her back is hurting, but hips are better. Compliance with HEP: Yes Objective Pt demonstrating good pelvic alignment today Treatment Therapeutic Activity # of Activities: 4 Therapeutic Activity 2: HEP Activity 2 Comment: Self correction R anterior rotation, Stretches: Hip ADD., Hip ROT., HS, Hip flexor on chair. Therapeutic Activity 3: Re-assess SI Activity 3 Comment: 07/17/22: Pt demonstrating good pelvic alignment today. Soft Tissue Mobilization Location: abdominal massage, STM to B R iliopsoas Comments: MH to back and abdomen Assessment Skilled physical therapy interventions utilized to improve patient s impairments and work towards established goals. Patient response to treatment: Patient is making progress toward goals with maintaining good pelvic alignment, reducing pain, compliance with HEP. Pt with reduced LBP after MT today. Continues with residual mm tightness. Patient will benefit from continued physical therapy to address mm tightness and strength deficits to eliminate pain The rationale for today s treatment was explained to the patient. Verbal cues were provided for correct form with all exercises. Advised patient to continue with Home Exercise Program (HEP). Goals General/Ortho Patient will be independent with HEP. (Progressing) Start: 07/10/22 Expected End: 10/09/22 Patient will report decreased pain at 0/10 in R LB/SI & buttock to be able to restore pain free function. (Progressing) Start: 07/10/22 Expected End: 10/09/22 Pelvic Health Pt will reduce summary score on gender appropriate NIH-CPSI to 9/45 to improve patient's perceived quality of life (Progressing) Start: 07/10/22 Expected End: 10/09/22 Plan Plan for next session: Initiate core strengthening. Continue with MT Time Entry Total Treatment Time Start Time: 1124 Stop Time: 1158 Time Calculation (min): 34 min PT Therapeutic Procedures Time Entry Therapeutic Activity Time Entry: 9 Manual Therapy Time Entry: 25 Katelyn Coto, PT documented in this encounter [facility] 07-17-2022 Miscellaneous Notes Let's schedule a friendly follow up to discuss documented in this encounter [facility] 07-17-2022 Progress note Formatting of t his note might be different from the original. Let's schedule a friendly follow up to discuss [facility] Work Phone: 07-10-2022 History of Presen t illness Narrative Images from the original note were not included. [facility] AT [place] [id number] [place] [address] Dept: [phone] Dept PHYSICAL THERAPY EVALUATION Pelvic Health Patient Name: Joie Young : 1985 Date of Service: 07/10/2022 Referring Provider: Mary Ann Ridley PA Diagnosis: Endometriosis determined by laparoscopy Pelvic pain General Information Reason for referral/Mechanism of injury: Pt has some GERD causing upper GI pain. Pt saw PA for yearly check up. Pt gets shooting pains random ~5 x/ month. Pt does not want sx and wanted to try PF PT again. Pt denies bladder issues/symptoms. R Lower back pain and R buttock pain. Pt. Denies pain with sexual activtiy, but notes cramping after. 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 PMHX: Joie has a past medical history of ADHD, Asthma, BMI 36.0-36.9,adult, Depression, Double ureter, Endometriosis, History of blood transfusion, Liver mass, and Migraine. PSHX: Joie has a past surgical history that includes Laparoscopy diagnostic / biopsy / aspiration / lysis; section, low transverse (10/14/2013); Ovarian cyst removal (Bilateral, 03/19/2004); Tonsillectomy; and section (04/19/2013). Subjective Prior Level of Function: Independent Current Level of Function: Independent but not limited by pain. Just moves slower Patient s Stated Goal: To eliminate pain Additional Specialty Information: PELVIC HEALTH Hx and sx : P:2; Urinary Sx Incontinence: denies Post-void dribble: No Urgency: No Voiding frequency: Every 2-4 hours Nocturia: No , 0/night Sensation of incomplete bladder emptying: No Pain associated with bladder and/or voiding: No Bowel sx Constipation: No Straining: No Hemorrhoids: No Dietary Water intake: 48-64 fl. oz Pain Best: 5/10 Worst: 7/10 Current: 10 Location of pain: R LB/buttock Description of pain: occasional sharp, but mostly dull and throbbing Aggravating factors: sit<>stand; stairs. Relieving factors: not crossing legs and sitting up straight. Questionnaire: NIH-CPSI: female Score: 17/45 Objective Observations Functional mobility: Independent Ortho screen Posture Pelvic alignment: Patient demonstrates R anterior rotated innominate with special tests positive for PSIS, stork and long sit on the R Special Tests Other: Negative SLR/Slump Lumbar ROM: WNL Hip ROM: WNL Palpation: Tender R PSIS, SI joint/sulcus; B iliacus, R psoas LQ Strength L R HIP Flexion 4/5 5/5 Extension 5/5 5/5 Abduction 5/5 5/5 KNEE Flexion 5/5 5/5 Extension 5/5 5/5 ANKLE Dorsiflexion 5/5 5/5 Plantarflexion 5/5 5/5 CORE 4/5 Flexibility: LEFT RIGHT Hip Adductors MILD MILD Hip External Rotators MODERATE MODERATE Iliopsoas SLIGHT MODERATE Hamstrings MODERATE NMODERATE Assessment Joie Young is a 37 y.o. patient who presents to PT with a diagnosis of endometriosis and pelvic pain. Pt was last seen in PF PT 02/23/22. Pt did respond well after last session. Pt returns to PF PT form return of pelvic pain. Pt currently demonstrates SI dysfunctions, decreased flexibility, increased iliacus mm tone, contributing to pain , impaired function and reduced quality of life. Pt able to self correct after MET . . The patient would benefit from skilled physical therapy to address decreased strength, decreased range of motion, impaired tone, and impaired functional activities. Evaluation complexity is moderate secondary to: patient has 3 or more personal factors and/or comorbidities that will affect plan of care, therapy will be addressing 3 or more elements, and clinical presentation is evolving. Body Systems Affected: musculoskeletal Rehab Potential: Good Learning Preferences: demonstration, explanation, performance, and printed materials Barriers to Rehab: chronicity, comorbidities, and duration of symptoms Goals General/Ortho Patient will be independent with HEP. Start: 07/10/22 Expected End: 10/09/22 Patient will report decreased pain at 0/10 in R LB/SI & buttock to be able to restore pain free function. Start: 07/10/22 Expected End: 10/09/22 Pelvic Health Pt will reduce summary score on gender appropriate NIH-CPSI to 9/45 to improve patient's perceived quality of life Start: 07/10/22 Expected End: 10/09/22 Plan Frequency and Duration: 1/wk for 12 weeks Therapeutic Contents: client education, home exercise program, manual therapy techniques, neuromuscular re-education, therapeutic activities, and modalities as needed Plan for next session: re-assess SI, progress HEP as tolerated and initiate MT to iliopsoas Risks and benefits were discussed with the patient and/or family, and the patient and/or family participated with the plan of care and agrees. Treatment Patient education with verbal & written information provided for the following: Pathology/Involved Anatomy: Use of 3 D PF model to explain: PF/SI dysfunctions; Therapeutic Activity # of Activities: 4 Therapeutic Activity 1: Review of initial pelvic health education Activity 1 Comment: See above Therapeutic Activity 2: HEP Activity 2 Comment: Self correction R anterior rotation, Stretches: Hip ADD., Hip ROT., HS, Hip flexor on chair.Discussed rational and importance of HEP for program carryover and maximal benefit of rehab. Patient demonstrated exercises to ensure proper technique and clinician provided verbal and written information. Exercises inputted into [employer]. Therapeutic Activity 3: Re-assess SI Time Entry Total Treatment Time Start Time: 1353 Stop Time: 1439 Time Calculation (min): 46 min PT Evaluation Time Entry PT Evaluation (Low) Time Entry: 30 PT Therapeutic Procedures Time Entry Therapeutic Activity Time Entry: 16 Katelyn Coto, PT documented in this encounter [facility] 06-29-2022 Note - New referral for P FPT placed, would like to trial again. - Would like to defer pudendal nerve blocks, TPI's, or Botox at this time. - Follow-up in 6 months to see how she is doing. [facility] 06-29-2022 Note - Referral to [facility] placed. Reviewed that they can do annual exams and repeat Pap smear when she is due. States last Pap smear was normal approximately 2 years ago, reviewed this will not need to be redone for 5 years. [facility] 06-29-2022 Evaluation + Plan note Associated Problem(s): BMI 40.0-44.9, adult (HCC) - Insurance did not cover [facility]. - Currently taking Ozempic make sure from PCP and has lost weight. States this is helping her improve her eating habits. She also has been increasing her water intake and moving around a lot more. Seeing slow progress but is optimistic for her future. Encourage patient to continue regimen and reach out if she needs anything. Voiced understanding and is appreciative. [facility] 06-29-2022 Miscellaneous Notes Associated Problem(s): BMI 40.0-44.9, adult (HCC) - Insurance did not cover [facility]. - Currently taking Ozempic make sure from PCP and has lost weight. States this is helping her improve her eating habits. She also has been increasing her water intake and moving around a lot more. Seeing slow progress but is optimistic for her future. Encourage patient to continue regimen and reach out if she needs anything. Voiced understanding and is appreciative. Associated Problem(s): Pelvic pain - New referral for PFPT placed, would like to trial again. - Would like to defer pudendal nerve blocks, TPI's, or Botox at this time. - Follow-up in 6 months to see how she is doing. Associated Problem(s): Endometriosis determined by laparoscopy - Continue taking Slynd, refill placed today. - Prescription for Sprix sent to pharmacy. Reviewed r/b/a and how to take medication, use sparingly for worst pain. - Consider surgery as last resort. Associated Problem(s): Cervical cancer screening - Referral to [facility] placed. Reviewed that they can do annual exams and repeat Pap smear when she is due. States last Pap smear was normal approximately 2 years ago, reviewed this will not need to be redone for 5 years. documented in this encounter [facility] 06-29-2022 Evaluation + Plan note Associated Problem(s): Pelvic pain - New referral for PFPT placed, would like to trial again. - Would like to defer pudendal nerve blocks, TPI's, or Botox at this time. - Follow-up in 6 months to see how she is doing. [facility] 06-29-2022 Evaluation + Plan note Associated Problem(s): Endometriosis determined by laparoscopy - Continue taking Slynd, refill placed today. - Prescription for Sprix sent to pharmacy. Reviewed r/b/a and how to take medication, use sparingly for worst pain. - Consider surgery as last resort. [facility] 06-29-2022 Evaluation + Plan note Associated Problem(s): Cervical cancer screening - Referral to [facility] group placed. Reviewed that they can do annual exams and repeat Pap smear when she is due. States last Pap smear was normal approximately 2 years ago, reviewed this will not need to be redone for 5 years. [facility] 06-29-2022 History of Presen t illness Narrative Images from the original note were not included. Joie Young 06/29/2022 37 y.o. Chief Complaint Patient presents with Follow-up Yearly check- still having slight pelvic pain. Pap? No LMP recorded. HPI: Joie Young is a 37 y.o. female No obstetric history on file. presents for follow up for concern for endometriosis and pelvic pain. Last visit plan was to continue PFPT and take Slynd. Pain is still present, more tightness down on right side of hip. Completed PFPT and states that it greatly helped her pain and improved her back pain as well. Feels that Slynd is working well, not had any BTB. Still reporting that she gets severe abdominal pain once a month. Was advised to take ibuprofen and Tylenol sparingly due to liver concerns. Was referred to [facility] but insurance did not cover this. Currently on Ozempic mixture from PCP for the last 3 weeks and states she has lost 5 pounds and dropped a pant size. She has also been moving around a lot more, drinking water, and improving eating habits. Not interested in pudendal nerve blocks, TPI's, or Botox at this time. States that surgery would be last resort for her at this time. Would like referral to new gynecology provider for annual exams. No other concerns today. OB History Para Term AB Living 2 SAB IAB Ectopic Multiple Live Births Past Medical History: Diagnosis Date ADHD Asthma BMI 36.0-36.9,adult Depression Double ureter Left Endometriosis History of blood transfusion 2013 when she had daughter Liver mass Migraine Past Surgical History: Procedure Laterality Date SECTION (HISTORICAL) 04/19/2013 Dr. Boggs SECTION, LOW TRANSVERSE 10/14/2013 Dr Vanessa LAPAROSCOPY DIAGNOSTIC / BIOPSY / ASPIRATION / LYSIS x3 For endometriosis OVARIAN CYST REMOVAL Bilateral 03/19/2004 TONSILLECTOMY (HISTORICAL) Family History Problem Relation Name Age of Onset Hypertension Father Cancer Maternal Grandfather blood cancer Diabetes Father Colon cancer Neg Hx Social History Tobacco Use Smoking status: Never Smokeless tobacco: Never Vaping Use Vaping Use: Never used Substance Use Topics Alcohol use: Not Currently Drug use: No MEDICATIONS: Current Outpatient Medications Medication Sig Dispense Refill albuterol 0.63 MG/3ML nebulizer solution 0.63 MG (3 mL) inhaled every 4 hours As Needed for shortness of breath or wheezing albuterol 108 (90 Base) MCG/ACT inhaler 2 PUFF INHALATION EVERY 4 HOURS As Needed for shortness OF breath or FOR WHEEZING Allergy Relief/Nasal Decongest 10-240 MG 24 hr tablet Take 1 tablet by mouth daily. clonazePAM (KlonoPIN) 0.5 MG tablet Take 0.5 mg by mouth every morning. EPINEPHrine (Epipen) 0.3 MG/0.3ML injection syringe 0.3 mg (0.3 mL) intramuscularly once for allergic reactions; as a single dose; may repeat once famotidine (Pepcid) 20 MG tablet Take 1 tablet (20 mg) by mouth 2 times daily for 15 days. 30 tablet 0 ketorolac (Sprix) nasal Administer 1 spray into each nostril every 8 hours as needed for moderate pain (4-6). 5 each 3 methylphenidate CD (Metadate CD) 30 MG daily capsule Nurtec 75 MG tablet dispersible 75 mg PO ONCE As Needed for migraine headache; may take everyother day for migriane ondansetron (Zofran) 8 MG tablet Take 8 mg by mouth in the morning and 8 mg in the evening. SEMAGLUTIDE,0.25 OR 0.5MG/DOS, SC sertraline (Zoloft) 100 MG tablet Take 100 mg by mouth daily. Slynd 4 MG tablet Take 1 tablet by mouth daily Take 1 active tablet daily, do not take placebo pills. Start taking next pack immediately. 28 tablet 11 No current facility-administered medications for this visit. ALLERGIES: Allergies as of 06/29/2022 - Reviewed 06/29/2022 Allergen Reaction Noted Galcanezumab 03/31/2021 Sulfamethoxazole 11/18/2020 Trimethoprim 11/18/2020 Verapamil Rash 06/29/2020 Levofloxacin 01/14/2019 Prednisone Hives 01/14/2019 Review of Systems: Review of Systems Constitutional: Negative for chills and fever. Gastrointestinal: Negative for abdominal pain, nausea and vomiting. Genitourinary: Positive for pelvic pain. Negative for decreased urine volume, difficulty urinating, dysuria, flank pain, frequency, genital sores, hematuria, menstrual problem, urgency, vaginal bleeding, vaginal discharge and vaginal pain. Skin: Negative for color change and rash. All other systems reviewed and are negative. Physical Exam: BP 118/85 Pulse 77 Ht 5' 3 (1.6 m) Wt 229 lb (104 kg) BMI 40.57 kg/m Physical Exam Vitals reviewed. Constitutional: General: She is not in acute distress. Appearance: Normal appearance. She is not ill-appearing or toxic-appearing. HENT: Head: Normocephalic and atraumatic. Pulmonary: Effort: Pulmonary effort is normal. No respiratory distress. Neurological: Mental Status: She is alert. Mental status is at baseline. Psychiatric: Mood and Affect: Mood normal. Behavior: Behavior normal. Judgment: Judgment normal. ASSESSMENT& PLAN: Cervical cancer screening - Referral to [facility] placed. Reviewed that they can do annual exams and repeat Pap smear when she is due. States last Pap smear was normal approximately 2 years ago, reviewed this will not need to be redone for 5 years. Endometriosis determined by laparoscopy - Continue taking Slynd, refill placed today. - Prescription for Sprix sent to pharmacy. Reviewed r/b/a and how to take medication, use sparingly for worst pain. - Consider surgery as last resort. Pelvic pain - New referral for PFPT placed, would like to trial again. - Would like to defer pudendal nerve blocks, TPI's, or Botox at this time. - Follow-up in 6 months to see how she is doing. BMI 40.0-44.9, adult (HCC) - Insurance did not cover MG WMI. - Currently taking Ozempic make sure from PCP and has lost weight. States this is helping her improve her eating habits. She also has been increasing her water intake and moving around a lot more. Seeing slow progress but is optimistic for her future. Encourage patient to continue regimen and reach out if she needs anything. Voiced understanding and is appreciative. OBI Barbour documented in this encounter [facility] 06-22-2022 Emergency department Note EMERGENCY DEPARTMENT ENCOUNTER Pt Name: Joie Young Birthdate 1985 Date of evaluation: 06/22/2022 ED Provider: Nj Guidry DO CHIEF COMPLAINT Chief Complaint Patient presents with Abdominal Pain HISTORY OF PRESENT ILLNESS (Location/Symptom, Timing/Onset, Context/Setting, Quality, Duration, Modifying Factors, Severity) Note limiting factors. I wore appropriate PPE for the entirety of this encounter. HPI Joie Young is a 37 y.o. female who presents to the emergency department with chief complaint of abdominal pain. Located primarily epigastric region of abdomen. Symptoms started yesterday. Initially mild but became more severe this morning. Associated with nausea and vomiting. Denies any fever, diarrhea, dysuria, abnormal vaginal bleeding, or discharge. No flank pain, or hematuria as well. No recent travel or sick contacts. No recent diet changes. No recent abdominal surgeries as well. Does note she started Ozempic about 2 weeks ago. Had been doing well with it previously. Nursing Notes were reviewed. Limitations to history: None Outside historians: None REVIEW OF SYSTEMS Review of Systems Pertinent positives and negatives as per HPI PAST MEDICAL HISTORY Past Medical History: Diagnosis Date ADHD Asthma BMI 36.0-36.9,adult Depression Double ureter Left Endometriosis History of blood transfusion 2013 when she had daughter Liver mass Migraine SURGICAL HISTORY Past Surgical History: Procedure Laterality Date SECTION (HISTORICAL) 04/19/2013 Dr. Boggs SECTION, LOW TRANSVERSE 10/14/2013 Dr Vanessa LAPAROSCOPY DIAGNOSTIC / BIOPSY / ASPIRATION / LYSIS x3 For endometriosis OVARIAN CYST REMOVAL Bilateral 03/19/2004 TONSILLECTOMY (HISTORICAL) CURRENT MEDICATIONS Previous Medications ALBUTEROL 0.63 MG/3ML NEBULIZER SOLUTION 0.63 MG (3 mL) inhaled every 4 hours As Needed for shortness of breath or wheezing ALBUTEROL 108 (90 BASE) MCG/ACT INHALER 2 PUFF INHALATION EVERY 4 HOURS As Needed for shortness OF breath or FOR WHEEZING ALLERGY RELIEF/NASAL DECONGEST 10-240 MG 24 HR TABLET Take 1 tablet by mouth daily. AZELASTINE (ASTELIN) 0.1 % NASAL SPRAY 1 SPRAY intranasally twice a day administer into each nostril [id number] M 30-2-10 MG/5ML SYRUP TAKE 10 ML BY MOUTH EVERY 12 HOURS NEEDED for cold SYMPTOMS CEFUROXIME (CEFTIN) 500 MG TABLET Take 500 mg by mouth in the morning and 500 mg before bedtime. CLONAZEPAM (KLONOPIN) 0.5 MG TABLET Take 0.5 mg by mouth every morning. DROSPIRENONE-ETHINYL ESTRADIOL (JUDI, OCELLA) 3-0.03 MG TABLET Take 1 tablet by mouth daily. EPINEPHRINE (EPIPEN) 0.3 MG/0.3ML INJECTION SYRINGE 0.3 mg (0.3 mL) intramuscularly once for allergic reactions; as a single dose; may repeat once FLUTICASONE (FLONASE) 50 MCG/ACT NASAL SPRAY 1 spray. HYDROXYZINE HCL (ATARAX) 10 MG TABLET TAKE 1 TABLET BY MOUTH 3 TO 4 times DAILY NEEDED FOR ITCHING METHYLPHENIDATE CD (METADATE CD) 30 MG DAILY CAPSULE METHYLPHENIDATE ER (CONCERTA) 54 MG CR TABLET Take 54 mg by mouth every morning. NURTEC 75 MG TABLET DISPERSIBLE 75 mg PO ONCE As Needed for migraine headache; may take everyother day for migriane ONDANSETRON (ZOFRAN) 8 MG TABLET Take 8 mg by mouth in the morning and 8 mg in the evening. SEMAGLUTIDE,0.25 OR 0.5MG/DOS, SC SERTRALINE (ZOLOFT) 100 MG TABLET Take 100 mg by mouth daily. SLYND 4 MG TABLET Take 1 tablet by mouth daily Take 1 active tablet daily, do not take placebo pills. Start taking next pack immediately. ALLERGIES Galcanezumab, Sulfamethoxazole, Trimethoprim, Verapamil, Levofloxacin, and Prednisone FAMILY HISTORY Family History Problem Relation Name Age of Onset Hypertension Father Cancer Maternal Grandfather blood cancer Diabetes Father Colon cancer Neg Hx SOCIAL HISTORY Social History Socioeconomic History Marital status: Tobacco Use Smoking status: Never Smokeless tobacco: Never Vaping Use Vaping Use: Never used Substance and Sexual Activity Alcohol use: Not Currently Drug use: No SCREENINGS PHYSICAL EXAM ED Triage Vitals [06/22/22 0900] Temp Heart Rate Resp BP 36.3 C (97.4 F) 93 16 (!) 113/91 SpO2 Temp Source Heart Rate Source Patient Position 99 % Oral Monitor -- BP Location FiO2 (%) -- -- Physical Exam Vitals and nursing note reviewed. Constitutional: General: She is not in acute distress. Appearance: She is well-developed. HENT: Head: Normocephalic and atraumatic. Eyes: Conjunctiva/sclera: Conjunctivae normal. Cardiovascular: Rate and Rhythm: Normal rate and regular rhythm. Heart sounds: No murmur heard. Pulmonary: Effort: Pulmonary effort is normal. No respiratory distress. Breath sounds: Normal breath sounds. Abdominal: General: Bowel sounds are normal. Palpations: Abdomen is soft. Tenderness: There is abdominal tenderness in the epigastric area. There is no guarding or rebound. Negative signs include Cheng's sign. Hernia: No hernia is present. Musculoskeletal: General: No swelling. Cervical back: Neck supple. Skin: General: Skin is warm and dry. Capillary Refill: Capillary refill takes less than 2 seconds. Neurological: Mental Status: She is alert and oriented to person, place, and time. Psychiatric: Mood and Affect: Mood normal. DIAGNOSTIC RESULTS RADIOLOGY (Per Emergency Physician): Interpretation per the Radiologist below, if available at the time of this note: No orders to display LABS: Labs Reviewed CBC WITH AUTO DIFFERENTIAL - Abnormal Result Value Auto WBC 4.8 RBC 4.73 Hemoglobin 13.2 Hematocrit 39.1 MCV 82.7 MCH 27.9 MCHC 33.8 RDW 13.0 Platelets 292 MPV 9.7 Neutrophils Relative 45.8 Lymphocytes Relative 41.5 (*) Monocytes Relative 8.8 Eosinophils Relative 2.9 Basophils Relative 0.8 Immature Grans % 0.2 (*) Neutrophils Absolute 2.2 Lymphocytes Absolute 2.0 Monocytes Absolute 0.4 Eosinophils Absolute 0.1 Basophils Absolute 0.0 Immature Grans Absolute 0.0 Narrative: Lymphocyte differential count reran/rechecked. BASIC METABOLIC PANEL - Abnormal SODIUM 139 POTASSIUM 3.1 (*) CHLORIDE 105 CARBON DIOXIDE 29 UREA NITROGEN 9 CREATININE 0.65 GLUCOSE 99 CALCIUM 9.0 ANION GAP 5 eGFR >90.0 COMPLETE URINALYSIS - Abnormal Color, Urine Light Yellow Clarity, Urine Turbid (*) pH, Urine 6.0 Leukocytes, Urine Negative Nitrite, Urine Negative Protein, Urine 10 (*) Glucose, Urine Normal Bilirubin, Urine Negative Ketones, Urine Trace (*) Urobilinogen, Urine Normal Blood, Urine Negative Volume, Urine 8-12 mL RBC, Urine 0-2 WBC, Urine 0-2 Squamous Epithelial, Urine 6-10 (*) Bacteria, Urine Few (*) SPECIFIC GRAVITY OF URINE (NUMERIC) 1.018 HEPATIC FUNCTION PANEL - Normal BILIRUBIN, TOTAL 0.5 BILIRUBIN, DIRECT 0.0 ALKALINE PHOSPHATASE 53 AST (SGOT) 26 ALT 29 ALBUMIN 4.6 TOTAL PROTEIN 7.6 LIPASE - Normal LIPASE 269 COMPLETE URINALYSIS WITH REFLEX TO CULTURE Narrative: The following orders were created for panel order Urinalysis complete with reflex to Culture. Procedure Abnormality Status --------- ------ Complete Urinalysis[[id number]] Abnormal Final result Please view results for these tests on the individual orders. HCG QUALITATIVE URINE HCG,URINE QUAL Negative Narrative: is the most common reason for HCG in urine, although choriocarcinoma, hydatidiform mole, and certain nontrophoblastic malignancies also result in detectable urinary HCG levels. Sensitivity = 20mIU/mL. All other labs were within normal range or not returned as of this dictation. EMERGENCY DEPARTMENT COURSE and DIFFERENTIAL DIAGNOSIS/MDM: Vitals: Vitals: 06/22/22 0900 06/22/22 0932 06/22/22 1002 BP: (!) 113/91 115/67 110/70 Pulse: 93 91 78 Resp: 16 Temp: 36.3 C (97.4 F) TempSrc: Oral SpO2: 99% 99% 100% Weight: 104 kg (229 lb) Height: 1.6 m (5' 3 ) Medications sodium chloride 0.9 % bolus 1,000 mL (1,000 mL IntraVENous New Bag 06/22/22935) ondansetron (Zofran) injection 4 mg (4 mg IntraVENous Given 06/22/22935) famotidine (Pepcid) injection 20 mg (20 mg IntraVENous Given 06/22/22935) MDM elements: The patient presented with chief complaint of epigastric abdominal pain, nausea, vomiting. The differential diagnosis associated with this patient's presentation includes gastritis, GERD, cholecystitis, pancreatitis, small bowel obstruction, kidney stone. Our workup consisted of ordering/reviewing: CBC, BMP, hepatic function panel, lipase level, urine analysis, urine test. Diagnostic tests considered but not performed: CT imaging was considered but patient is afebrile stable vitals. Her symptoms have improved after supportive care. She has no leukocytosis, abnormal LFTs, lipase elevation, and there is no fever or jaundice. Very low clinical suspicion for acute intra-abdominal process requiring further imaging at this time. The patient will be Discharged. Patient is in agreement with this plan. FINAL IMPRESSION 1. Abdominal pain, epigastric 2. Acute gastritis without hemorrhage, unspecified gastritis type DISPOSITION Discharge 06/22/2022 10:15:35 AM PATIENT REFERRED TO: Christen Martínez [address] [facility] [address] Schedule an appointment as soon as possible for a visit As needed, If symptoms worsen DISCHARGE MEDICATIONS: New Prescriptions FAMOTIDINE (PEPCID) 20 MG TABLET Take 1 tablet (20 mg) by mouth 2 times daily for 15 days. ONDANSETRON ODT (ZOFRAN-ODT) 4 MG DISINTEGRATING TABLET Take 1 tablet (4 mg) by mouth every 8 hours as needed for nausea or vomiting for up to 3 days. (Comment: Please note this report has been produced using speech recognition software and may contain errors related to that system including errors in grammar, punctuation, and spelling, as well as words and phrases that may be inappropriate. If there are any questions or concerns please feel free to contact the dictating provider for clarification.) Nj Guidry DO (electronically signed) Emergency Medicine Provider Nj Guidry DO 06/22/22 1020 Patient to room 4 with c/o epigastric pain, nausea and vomiting. Patient reports pain started yesterday and was mild, at 0200 this am pain became severe. Patient started Ozempic 2 weeks ago and has had diarrhea since staring the medication. Patient started taking Pepcid yesterday with little relief. Patient ate fried shrimp and green beans for dinner last night. Patient has had two children. V/S obtained, call light within reach. documented in this encounter [facility] 06-22-2022 Emergency department Triage note Patient to room 4 with c/o epigastric pain, nausea and vomiting. Patient reports pain started yesterday and was mild, at 0200 this am pain became severe. Patient started Ozempic 2 weeks ago and has had diarrhea since staring the medication. Patient started taking Pepcid yesterday with little relief. Patient ate fried shrimp and green beans for dinner last night. Patient has had two children. V/S obtained, call light within reach. T [facility] 06-22-2022 Physician Emergency department Note EMERGENCY DEPARTMENT ENCOUNTER Pt Name: Joie Young Birthdate 1985 Date of evaluation: 06/22/2022 ED Provider: Nj Guidry DO CHIEF COMPLAINT Chief Complaint Patient presents with Abdominal Pain HISTORY OF PRESENT ILLNESS (Location/Symptom, Timing/Onset, Context/Setting, Quality, Duration, Modifying Factors, Severity) Note limiting factors. I wore appropriate PPE for the entirety of this encounter. HPI Joie Young is a 37 y.o. female who presents to the emergency department with chief complaint of abdominal pain. Located primarily epigastric region of abdomen. Symptoms started yesterday. Initially mild but became more severe this morning. Associated with nausea and vomiting. Denies any fever, diarrhea, dysuria, abnormal vaginal bleeding, or discharge. No flank pain, or hematuria as well. No recent travel or sick contacts. No recent diet changes. No recent abdominal surgeries as well. Does note she started Ozempic about 2 weeks ago. Had been doing well with it previously. Nursing Notes were reviewed. Limitations to history: None Outside historians: None REVIEW OF SYSTEMS Review of Systems Pertinent positives and negatives as per HPI PAST MEDICAL HISTORY Past Medical History: Diagnosis Date ADHD Asthma BMI 36.0-36.9,adult Depression Double ureter Left Endometriosis History of blood transfusion 2013 when she had daughter Liver mass Migraine SURGICAL HISTORY Past Surgical History: Procedure Laterality Date SECTION (HISTORICAL) 04/19/2013 Dr. Boggs SECTION, LOW TRANSVERSE 10/14/2013 Dr Vanessa LAPAROSCOPY DIAGNOSTIC / BIOPSY / ASPIRATION / LYSIS x3 For endometriosis OVARIAN CYST REMOVAL Bilateral 03/19/2004 TONSILLECTOMY (HISTORICAL) CURRENT MEDICATIONS Previous Medications ALBUTEROL 0.63 MG/3ML NEBULIZER SOLUTION 0.63 MG (3 mL) inhaled every 4 hours As Needed for shortness of breath or wheezing ALBUTEROL 108 (90 BASE) MCG/ACT INHALER 2 PUFF INHALATION EVERY 4 HOURS As Needed for shortness OF breath or FOR WHEEZING ALLERGY RELIEF/NASAL DECONGEST 10-240 MG 24 HR TABLET Take 1 tablet by mouth daily. AZELASTINE (ASTELIN) 0.1 % NASAL SPRAY 1 SPRAY intranasally twice a day administer into each nostril [id number]-HMAIGPRYPMVQFUO-M M 30-2-10 MG/5ML SYRUP TAKE 10 ML BY MOUTH EVERY 12 HOURS NEEDED for cold SYMPTOMS CEFUROXIME (CEFTIN) 500 MG TABLET Take 500 mg by mouth in the morning and 500 mg before bedtime. CLONAZEPAM (KLONOPIN) 0.5 MG TABLET Take 0.5 mg by mouth every morning. DROSPIRENONE-ETHINYL ESTRADIOL (JUDI, OCELLA) 3-0.03 MG TABLET Take 1 tablet by mouth daily. EPINEPHRINE (EPIPEN) 0.3 MG/0.3ML INJECTION SYRINGE 0.3 mg (0.3 mL) intramuscularly once for allergic reactions; as a single dose; may repeat once FLUTICASONE (FLONASE) 50 MCG/ACT NASAL SPRAY 1 spray. HYDROXYZINE HCL (ATARAX) 10 MG TABLET TAKE 1 TABLET BY MOUTH 3 TO 4 times DAILY NEEDED FOR ITCHING METHYLPHENIDATE CD (METADATE CD) 30 MG DAILY CAPSULE METHYLPHENIDATE ER (CONCERTA) 54 MG CR TABLET Take 54 mg by mouth every morning. NURTEC 75 MG TABLET DISPERSIBLE 75 mg PO ONCE As Needed for migraine headache; may take everyother day for migriane ONDANSETRON (ZOFRAN) 8 MG TABLET Take 8 mg by mouth in the morning and 8 mg in the evening. SEMAGLUTIDE,0.25 OR 0.5MG/DOS, SC SERTRALINE (ZOLOFT) 100 MG TABLET Take 100 mg by mouth daily. SLYND 4 MG TABLET Take 1 tablet by mouth daily Take 1 active tablet daily, do not take placebo pills. Start taking next pack immediately. ALLERGIES Galcanezumab, Sulfamethoxazole, Trimethoprim, Verapamil, Levofloxacin, and Prednisone FAMILY HISTORY Family History Problem Relation Name Age of Onset Hypertension Father Cancer Maternal Grandfather blood cancer Diabetes Father Colon cancer Neg Hx SOCIAL HISTORY Social History Socioeconomic History Marital status: Tobacco Use Smoking status: Never Smokeless tobacco: Never Vaping Use Vaping Use: Never used Substance and Sexual Activity Alcohol use: Not Currently Drug use: No SCREENINGS PHYSICAL EXAM ED Triage Vitals [06/22/22 0900] Temp Heart Rate Resp BP 36.3 C (97.4 F) 93 16 (!) 113/91 SpO2 Temp Source Heart Rate Source Patient Position 99 % Oral Monitor -- BP Location FiO2 (%) -- -- Physical Exam Vitals and nursing note reviewed. Constitutional: General: She is not in acute distress. Appearance: She is well-developed. HENT: Head: Normocephalic and atraumatic. Eyes: Conjunctiva/sclera: Conjunctivae normal. Cardiovascular: Rate and Rhythm: Normal rate and regular rhythm. Heart sounds: No murmur heard. Pulmonary: Effort: Pulmonary effort is normal. No respiratory distress. Breath sounds: Normal breath sounds. Abdominal: General: Bowel sounds are normal. Palpations: Abdomen is soft. Tenderness: There is abdominal tenderness in the epigastric area. There is no guarding or rebound. Negative signs include Cheng's sign. Hernia: No hernia is present. Musculoskeletal: General: No swelling. Cervical back: Neck supple. Skin: General: Skin is warm and dry. Capillary Refill: Capillary refill takes less than 2 seconds. Neurological: Mental Status: She is alert and oriented to person, place, and time. Psychiatric: Mood and Affect: Mood normal. DIAGNOSTIC RESULTS RADIOLOGY (Per Emergency Physician): Interpretation per the Radiologist below, if available at the time of this note: No orders to display LABS: Labs Reviewed CBC WITH AUTO DIFFERENTIAL - Abnormal Result Value Auto WBC 4.8 RBC 4.73 Hemoglobin 13.2 Hematocrit 39.1 MCV 82.7 MCH 27.9 MCHC 33.8 RDW 13.0 Platelets 292 MPV 9.7 Neutrophils Relative 45.8 Lymphocytes Relative 41.5 (*) Monocytes Relative 8.8 Eosinophils Relative 2.9 Basophils Relative 0.8 Immature Grans % 0.2 (*) Neutrophils Absolute 2.2 Lymphocytes Absolute 2.0 Monocytes Absolute 0.4 Eosinophils Absolute 0.1 Basophils Absolute 0.0 Immature Grans Absolute 0.0 Narrative: Lymphocyte differential count reran/rechecked. BASIC METABOLIC PANEL - Abnormal SODIUM 139 POTASSIUM 3.1 (*) CHLORIDE 105 CARBON DIOXIDE 29 UREA NITROGEN 9 CREATININE 0.65 GLUCOSE 99 CALCIUM 9.0 ANION GAP 5 eGFR >90.0 COMPLETE URINALYSIS - Abnormal Color, Urine Light Yellow Clarity, Urine Turbid (*) pH, Urine 6.0 Leukocytes, Urine Negative Nitrite, Urine Negative Protein, Urine 10 (*) Glucose, Urine Normal Bilirubin, Urine Negative Ketones, Urine Trace (*) Urobilinogen, Urine Normal Blood, Urine Negative Volume, Urine 8-12 mL RBC, Urine 0-2 WBC, Urine 0-2 Squamous Epithelial, Urine 6-10 (*) Bacteria, Urine Few (*) SPECIFIC GRAVITY OF URINE (NUMERIC) 1.018 HEPATIC FUNCTION PANEL - Normal BILIRUBIN, TOTAL 0.5 BILIRUBIN, DIRECT 0.0 ALKALINE PHOSPHATASE 53 AST (SGOT) 26 ALT 29 ALBUMIN 4.6 TOTAL PROTEIN 7.6 LIPASE - Normal LIPASE 269 COMPLETE URINALYSIS WITH REFLEX TO CULTURE Narrative: The following orders were created for panel order Urinalysis complete with reflex to Culture. Procedure Abnormality Status --------- ------ Complete Urinalysis[[id number]] Abnormal Final result Please view results for these tests on the individual orders. HCG QUALITATIVE URINE HCG,URINE QUAL Negative Narrative: is the most common reason for HCG in urine, although choriocarcinoma, hydatidiform mole, and certain nontrophoblastic malignancies also result in detectable urinary HCG levels. Sensitivity = 20mIU/mL. All other labs were within normal range or not returned as of this dictation. EMERGENCY DEPARTMENT COURSE and DIFFERENTIAL DIAGNOSIS/MDM: Vitals: Vitals: 06/22/22 0900 06/22/22 0932 06/22/22 1002 BP: (!) 113/91 115/67 110/70 Pulse: 93 91 78 Resp: 16 Temp: 36.3 C (97.4 F) TempSrc: Oral SpO2: 99% 99% 100% Weight: 104 kg (229 lb) Height: 1.6 m (5' 3 ) Medications sodium chloride 0.9 % bolus 1,000 mL (1,000 mL IntraVENous New Bag 06/22/22935) ondansetron (Zofran) injection 4 mg (4 mg IntraVENous Given 06/22/2236) famotidine (Pepcid) injection 20 mg (20 mg IntraVENous Given 06/22/22935) MDM elements: The patient presented with chief complaint of epigastric abdominal pain, nausea, vomiting. The differential diagnosis associated with this patient's presentation includes gastritis, GERD, cholecystitis, pancreatitis, small bowel obstruction, kidney stone. Our workup consisted of ordering/reviewing: CBC, BMP, hepatic function panel, lipase level, urine analysis, urine test. Diagnostic tests considered but not performed: CT imaging was considered but patient is afebrile stable vitals. Her symptoms have improved after supportive care. She has no leukocytosis, abnormal LFTs, lipase elevation, and there is no fever or jaundice. Very low clinical suspicion for acute intra-abdominal process requiring further imaging at this time. The patient will be Discharged. Patient is in agreement with this plan. FINAL IMPRESSION 1. Abdominal pain, epigastric 2. Acute gastritis without hemorrhage, unspecified gastritis type DISPOSITION Discharge 06/22/2022 10:15:35 AM PATIENT REFERRED TO: Christen Martínez [address] [facility] [address] Schedule an appointment as soon as possible for a visit As needed, If symptoms worsen DISCHARGE MEDICATIONS: New Prescriptions FAMOTIDINE (PEPCID) 20 MG TABLET Take 1 tablet (20 mg) by mouth 2 times daily for 15 days. ONDANSETRON ODT (ZOFRAN-ODT) 4 MG DISINTEGRATING TABLET Take 1 tablet (4 mg) by mouth every 8 hours as needed for nausea or vomiting for up to 3 days. (Comment: Please note this report has been produced using speech recognition software and may contain errors related to that system including errors in grammar, punctuation, and spelling, as well as words and phrases that may be inappropriate. If there are any questions or concerns please feel free to contact the dictating provider for clarification.) Nj Guidry DO (electronically signed) Emergency Medicine Provider Nj Guidry DO 06/22/22 1020 [facility] 06-20-2022 History of Presen t illness Narrative Assessment and Recommendations: Joie Young is a 37 y.o. female here for acute recurrent sinusitis deviated nasal septum inferior turban hypertrophy -Recommend CT imaging given the patient's failed maximal medical therapy with greater than 4 infections per year will assess with CT scan follow-up after all of her question concerns were answered and she expressed understanding Otolaryngology Head and Neck Surgery Clinic Note HPI: Joie Young is a 37 y.o. yo female who presents to clinic today for evaluation of recurrent sinus infections. Patient states that at least once a month for several years now she gets facial pain and pressure predominantly over the maxillary sinuses as well as drainage down the back of her throat mucopurulent in consistency. She does not endorse any nasal obstruction states her sense of smell is about 50% of what it used to be after she got COVID a couple years ago. She has been on nasal steroids Astelin as well as saline sprays for several years now without any benefit. Estimates she gets between 6-12 infections per year she did have recent CT scan of the neck showed some of the sinonasal anatomy showed a cyst or polyp within the maxillary sinus. She denies any previous trauma she does note she gets ear pain fullness with the sinus infection she has has history of ear tubes as a child. No other head neck related surgeries no head neck trauma no other concerns at this time. PMH: Past Medical History: Diagnosis Date ADHD Asthma BMI 36.0-36.9,adult Depression Double ureter Left Endometriosis History of blood transfusion 2013 when she had daughter Liver mass Migraine Allergies: Allergies Allergen Reactions Galcanezumab Other reaction(s): rash and stomach aches for 48 hrs Sulfamethoxazole Other reaction(s): DIARRHEA AND HEADACHES Trimethoprim Other reaction(s): DIARRHEA AND HEADACHES Verapamil Rash Levofloxacin Other reaction(s): Other (See Comments), Other (See Comments), Other: See Comments Leg swelling Prednisone Hives Able to take- just not in high doses Medications: Current Outpatient Medications: methylphenidate CD (Metadate CD) 30 MG daily capsule, , Disp: , Rfl: SEMAGLUTIDE,0.25 OR 0.5MG/DOS, SC, , Disp: , Rfl: albuterol 0.63 MG/3ML nebulizer solution, 0.63 MG (3 mL) inhaled every 4 hours As Needed for shortness of breath or wheezing, Disp: , Rfl: albuterol 108 (90 Base) MCG/ACT inhaler, 2 PUFF INHALATION EVERY 4 HOURS As Needed for shortness OF breath or FOR WHEEZING, Disp: , Rfl: Allergy Relief/Nasal Decongest 10-240 MG 24 hr tablet, Take 1 tablet by mouth daily., Disp: , Rfl: azelastine (Astelin) 0.1 % nasal spray, 1 SPRAY intranasally twice a day administer into each nostril, Disp: , Rfl: jzdyxaqlbklndze-dipjeehtcqkmlui-A M 30-2-10 MG/5ML syrup, TAKE 10 ML BY MOUTH EVERY 12 HOURS NEEDED for cold SYMPTOMS, Disp: , Rfl: cefuroxime (Ceftin) 500 MG tablet, Take 500 mg by mouth in the morning and 500 mg before bedtime., Disp: , Rfl: clonazePAM (KlonoPIN) 0.5 MG tablet, Take 0.5 mg by mouth every morning., Disp: , Rfl: drospirenone-ethinyl estradiol (Judi, Ocella) 3-0.03 MG tablet, Take 1 tablet by mouth daily., Disp: 28 tablet, Rfl: 2 EPINEPHrine (Epipen) 0.3 MG/0.3ML injection syringe, 0.3 mg (0.3 mL) intramuscularly once for allergic reactions; as a single dose; may repeat once, Disp: , Rfl: fluticasone (Flonase) 50 MCG/ACT nasal spray, 1 spray., Disp: , Rfl: hydrOXYzine HCl (Atarax) 10 MG tablet, TAKE 1 TABLET BY MOUTH 3 TO 4 times DAILY NEEDED FOR ITCHING, Disp: , Rfl: methylphenidate ER (Concerta) 54 MG CR tablet, Take 54 mg by mouth every morning., Disp: , Rfl: Nurtec 75 MG tablet dispersible, 75 mg PO ONCE As Needed for migraine headache; may take everyother day for migriane, Disp: , Rfl: ondansetron (Zofran) 8 MG tablet, Take 8 mg by mouth in the morning and 8 mg in the evening., Disp: , Rfl: sertraline (Zoloft) 100 MG tablet, Take 100 mg by mouth daily., Disp: , Rfl: Slynd 4 MG tablet, Take 1 tablet by mouth daily Take 1 active tablet daily, do not take placebo pills. Start taking next pack immediately., Disp: , Rfl: PSH: Past Surgical History: Procedure Laterality Date SECTION (HISTORICAL) 04/19/2013 Dr. Boggs SECTION, LOW TRANSVERSE 10/14/2013 Dr Vanessa LAPAROSCOPY DIAGNOSTIC / BIOPSY / ASPIRATION / LYSIS x3 For endometriosis OVARIAN CYST REMOVAL Bilateral 03/19/2004 TONSILLECTOMY (HISTORICAL) FH: Family History Problem Relation Name Age of Onset Hypertension Father Cancer Maternal Grandfather blood cancer Diabetes Father Colon cancer Neg Hx SH: Social History Socioeconomic History Marital status: Spouse name: Not on file Number of children: Not on file Years of education: Not on file Highest education level: Not on file Occupational History Not on file Tobacco Use Smoking status: Never Smokeless tobacco: Never Vaping Use Vaping Use: Never used Substance and Sexual Activity Alcohol use: Not Currently Drug use: No Sexual activity: Not on file Other Topics Concern Not on file Social History Narrative Not on file Social Determinants of Health Financial Resource Strain: Not on file Food Insecurity: Not on file Transportation Needs: Not on file Physical Activity: Not on file Stress: Not on file Social Connections: Not on file Intimate Partner Violence: Not on file Housing Stability: Not on file Physical Exam: Constitutional: General: Patient is not in acute distress. Appearance: Patient is well-developed. Eyes: Conjunctiva/sclera: Conjunctivae normal. Pupils: Pupils are equal, round, and reactive to light. HENT: Jaw: No trismus. Nose: As shaped septal deflection present inferior turban hypertrophy Mouth: Mucous membranes are not pale, not dry and not cyanotic. No oral lesions. Pharynx: Uvula midline. No oropharyngeal exudate or uvula swelling. Tonsils: No tonsillar exudate. No abnormal masses or lesions Thyroid: No significant thyromegaly. Trachea: Trachea and phonation normal. No tracheal deviation. Pulmonary: Effort: Pulmonary effort is normal. No respiratory distress. Breath sounds: No stridor. Musculoskeletal: Head: Normocephalic and atraumatic. Neck: Full passive range of motion without pain, neck supple. Skin: General: Skin is warm and dry. Findings: No erythema or rash. Neurological: Cranial Nerves: No cranial nerve deficit. Sensory: No sensory deficit. Coordination: Coordination normal. Extremities: No significant peripheral edema or varicosities Psychiatric: Mood and Affect: Mood and affect normal. Cognition and Memory: Cognition and memory normal. Nasal endoscopy form revealing right-sided septal deviation inferior turban hypertrophy narrowed ostiomeatal complexes bilaterally with thick secretions documented in this encounter [facility] 03-26-2022 Note HNO ID: [id number] Author: Barbie Moe PA-C Service: ? Author Type: Physician Prize Coordinator Type: Progress Notes Filed: 03/26/2022 10:46 AM Note Text: 03/26/2022 Patient presents with: Sore Throat: [place] throat has been red and swollen SUBJECTIVE: This is a 36 year old that is here today for acute onset sore throat x 2 weeks. Getting worse. Pain 7-8/10 Feels swollen. No cough, n/v, TANNER, or rash. No other sick symptoms. No other URI symptoms. Denies fever, chills, sweats, or fatigue. Patient denies wheezing, shortness of breath, increased WOB, or chest pain. Asthma: none Pneumonia: none Tobacco: none Pain on scale of 0-10 with 0 being no pain and 10 being greatest pain: 7 Nothing makes the symptoms better. Nothing makes them worse. Self-treatment:. Otc care The severity is mild and the symptoms are not improving. The patient did not have a similar problem in the last 3 months. The patient did not take any antibiotics in the last 3 months. The patient was not exposed to strep. Barriers to learning: none. Reviewed meds, OTCs, herbals or supplements. Reviewed allergies, medications, social history, and past medical history. PAST MEDICAL HISTORY Diagnosis Date Asthma ALLERGIES Levaquin [Levofloxacin] and Prednisone MEDICATIONS Current Outpatient Medications Medication Sig clonazePAM (KLONOPIN) 0.5 mg tablet Take 0.5 mg by mouth every morning. SLYND 4 mg (28) tabet Take 1 tablet by mouth daily Take 1 active tablet daily, do not take placebo pills. Start taking next pack immediately. methylphenidate ER 54 mg tablet Take 54 mg by mouth once daily. azelastine (ASTELIN,ASTEPRO) 0.1% nasal spray Use 1 [place] in each nostril twice daily. predniSONE (DELTASONE) 10 mg tablet Take 1 tablet by mouth once daily for 5 days. TAKE BY MOUTH (4) TABS FOR (3) DAYS THEN (3) TABS FOR (3) DAYS THEN (2) TABS FOR (3) DAYS THEN (1) TAB FOR (3) DAYS lidocaine viscous (XYLOCAINE) 2 % solution Take 5 mL by mouth every 3 hours as needed. Swish and spit 5 ml every 3 hours as need for pain Vwjnldkigkcefqd-Jkseihtke-GK (BROMFED DM) 2-30-10 mg/5 mL syrup Take 10 mL by mouth four times daily as needed. loratadine/pseudoephedrine (LORATA-D ORAL) Take by mouth. benzonatate (TESSALON PERLES) 100 mg capsule Take 2 capsules by mouth three times daily as needed for Cough. (Patient not taking: Reported on 05/09/2021 ) MISAEL 24 FE 1 mg-20 mcg (24)/75 mg (4) tab TAKE 1 TABLET BY MOUTH DAILY. Start new pack every 24 days. albuterol sulfate 90 mcg/actuation aepb Inhale as instructed. (Patient not taking: Reported on 05/09/2021 ) sertraline (ZOLOFT) 50 mg tablet Take 50 mg by mouth. (Patient not taking: Reported on 05/09/2021 ) No current facility-administered medications for this visit. Medications and allergies reviewed by this provider. SOCIAL HISTORY Social History Tobacco Use Smoking status: Never Smokeless tobacco: Never Substance Use Topics Alcohol use: No Drug use: No REVIEW OF SYSTEMS Review of Systems ROS: constitutional-neg, HENT-sore throat, Eyes- neg, Allergy- neg, heart-neg, respiratory-neg, GI-neg, skin-neg, lymph-neg, - All systems neg except as noted above in HPI. OBJECTIVE: BP 125/78 Pulse 89 Temp 36.7 ?C (98 ?F) Resp 16 Ht 160 cm (5' 3 ) Wt 104.3 kg (230 lb) LMP 05/15/2017 (Approximate) SpO2 97% BMI 40.74 kg/m? . Vital signs reviewed by this provider. Physical Exam Vitals reviewed. Constitutional: General: She is not in acute distress. Appearance: Normal appearance. She is well-developed and normal weight. She is not ill-appearing, toxic-appearing or diaphoretic. HENT: Head: Normocephalic and atraumatic. No right periorbital erythema or left periorbital erythema. Salivary Glands: Right salivary gland is not diffusely enlarged or tender. Left salivary gland is not diffusely enlarged or tender. Right Ear: Tympanic membrane, ear canal and external ear normal. Left Ear: Tympanic membrane, ear canal and external ear normal. Nose: Nose normal. No congestion or rhinorrhea. Right Sinus: No maxillary sinus tenderness or frontal sinus tenderness. Left Sinus: No maxillary sinus tenderness or frontal sinus tenderness. Mouth/Throat: Lips: No lesions. Mouth: Mucous membranes are moist. No oral lesions. Dentition: No gum lesions. Tongue: No lesions. Tongue does not deviate from midline. Palate: No mass and lesions. Pharynx: Oropharynx is clear. No pharyngeal swelling, oropharyngeal exudate, posterior oropharyngeal erythema or uvula swelling. Tonsils: No tonsillar exudate or tonsillar abscesses. Eyes: General: Lids are normal. No scleral icterus. Right eye: No discharge. Left eye: No discharge. Extraocular Movements: Extraocular movements intact. Conjunctiva/sclera: Conjunctivae normal. Pupils: Pupils are equal, round, and reactive to light. Cardiovascular: Rate and Rhythm: Normal rat (more content not included)... [facility] 03-26-2022 Instructions Barbie Moe PA-C - 03/26/2022 9:51 AM EST ASSESSMENT/PLAN: 1. Sore throat Prolonged x 2 weeks or more Thraat normal on exam - GROUP A STREPTOCOCCUS BY PCR - PREDNISONE 10 MG TABLET - LIDOCAINE HCL 2 % MUCOSAL SOLUTION - MONOTEST, INFECTIOUS MONO Get your labs [facility] in [address], [facility] [address] Outpatient lab department Walk in 7am -6:30pm We will call you with results Encourage fluids, rest. Tylenol and Motrin f Try Cepocol lozenges or Chloraseptic throat spray. Warm salt water gargles. Call PCP if sx worsen or no better. If symptoms worsen, or new symptoms develop go to ER. If you have worsening of breathing or breathing changes- go to ER. If you have persistent fever unrelieved by Tylenol/Motrin- go to the ER. Follow up as needed. Pt agreeable with plan. Barriers to learning: none. The patient verbalizes understanding and is in agreement with plan of care. Barbie Moe PA-C documented in this encounter [facility] 03-26-2022 History of Presen t illness Narrative 03/26/2022 Patient presents with: Sore Thro[facility]: [facility] throat has been red and swollen SUBJECTIVE: This is a 36 year old that is here today for acute onset sore throat x 2 weeks. Getting worse. Pain 7-8/10 Feels swollen. No cough, n/v, TANNER, or rash. No other sick symptoms. No other URI symptoms. Denies fever, chills, sweats, or fatigue. Patient denies wheezing, shortness of breath, increased WOB, or chest pain. Asthma: none Pneumonia: none Tobacco: none Pain on scale of 0-10 with 0 being no pain and 10 being greatest pain: 7 Nothing makes the symptoms better. Nothing makes them worse. Self-treatment:. Otc care The severity is mild and the symptoms are not improving. The patient did not have a similar problem in the last 3 months. The patient did not take any antibiotics in the last 3 months. The patient was not exposed to strep. Barriers to learning: none. Reviewed meds, OTCs, herbals or supplements. Reviewed allergies, medications, social history, and past medical history. PAST MEDICAL HISTORY Diagnosis Date Asthma ALLERGIES Levaquin [Levofloxacin] and Prednisone MEDICATIONS Current Outpatient Medications Medication Sig clonazePAM (KLONOPIN) 0.5 mg tablet Take 0.5 mg by mouth every morning. SLYND 4 mg (28) tabet Take 1 tablet by mouth daily Take 1 active tablet daily, do not take placebo pills. Start taking next pack immediately. methylphenidate ER 54 mg tablet Take 54 mg by mouth once daily. azelastine (ASTELIN,ASTEPRO) 0.1% nasal spray Use 1 [place] in each nostril twice daily. predniSONE (DELTASONE) 10 mg tablet Take 1 tablet by mouth once daily for 5 days. TAKE BY MOUTH (4) TABS FOR (3) DAYS THEN (3) TABS FOR (3) DAYS THEN (2) TABS FOR (3) DAYS THEN (1) TAB FOR (3) DAYS lidocaine viscous (XYLOCAINE) 2 % solution Take 5 mL by mouth every 3 hours as needed. Swish and spit 5 ml every 3 hours as need for pain Wcbxjjefxjypmfe-Upebvqvfo-LI (BROMFED DM) 2-30-10 mg/5 mL syrup Take 10 mL by mouth four times daily as needed. loratadine/pseudoephedrine (LORATA-D ORAL) Take by mouth. benzonatate (TESSALON PERLES) 100 mg capsule Take 2 capsules by mouth three times daily as needed for Cough. (Patient not taking: Reported on 05/09/2021 ) MISAEL 24 FE 1 mg-20 mcg (24)/75 mg (4) tab TAKE 1 TABLET BY MOUTH DAILY. Start new pack every 24 days. albuterol sulfate 90 mcg/actuation aepb Inhale as instructed. (Patient not taking: Reported on 05/09/2021 ) sertraline (ZOLOFT) 50 mg tablet Take 50 mg by mouth. (Patient not taking: Reported on 05/09/2021 ) No current facility-administered medications for this visit. Medications and allergies reviewed by this provider. SOCIAL HISTORY Social History Tobacco Use Smoking status: Never Smokeless tobacco: Never Substance Use Topics Alcohol use: No Drug use: No REVIEW OF SYSTEMS Review of Systems ROS: constitutional-neg, HENT-sore throat, Eyes- neg, Allergy- neg, heart-neg, respiratory-neg, GI-neg, skin-neg, lymph-neg, - All systems neg except as noted above in HPI. OBJECTIVE: BP 125/78 Pulse 89 Temp 36.7 C (98 F) Resp 16 Ht 160 cm (5' 3 ) Wt 104.3 kg (230 lb) LMP 05/15/2017 (Approximate) SpO2 97% BMI 40.74 kg/m . Vital signs reviewed by this provider. Physical Exam Vitals reviewed. Constitutional: General: She is not in acute distress. Appearance: Normal appearance. She is well-developed and normal weight. She is not ill-appearing, toxic-appearing or diaphoretic. HENT: Head: Normocephalic and atraumatic. No right periorbital erythema or left periorbital erythema. Salivary Glands: Right salivary gland is not diffusely enlarged or tender. Left salivary gland is not diffusely enlarged or tender. Right Ear: Tympanic membrane, ear canal and external ear normal. Left Ear: Tympanic membrane, ear canal and external ear normal. Nose: Nose normal. No congestion or rhinorrhea. Right Sinus: No maxillary sinus tenderness or frontal sinus tenderness. Left Sinus: No maxillary sinus tenderness or frontal sinus tenderness. Mouth/Throat: Lips: No lesions. Mouth: Mucous membranes are moist. No oral lesions. Dentition: No gum lesions. Tongue: No lesions. Tongue does not deviate from midline. Palate: No mass and lesions. Pharynx: Oropharynx is clear. No pharyngeal swelling, oropharyngeal exudate, posterior oropharyngeal erythema or uvula swelling. Tonsils: No tonsillar exudate or tonsillar abscesses. Eyes: General: Lids are normal. No scleral icterus. Right eye: No discharge. Left eye: No discharge. Extraocular Movements: Extraocular movements intact. Conjunctiva/sclera: Conjunctivae normal. Pupils: Pupils are equal, round, and reactive to light. Cardiovascular: Rate and Rhythm: Normal rate and regular rhythm. Heart sounds: Normal heart sounds. Pulmonary: Effort: Pulmonary effort is normal. Breath sounds: Normal breath sounds and air entry. Musculoskeletal: Cervical back: Full passive range of motion without pain. No spinous process tenderness or muscular tenderness. Lymphadenopathy: Head: Right side of head: No submental, submandibular, tonsillar, preauricular or posterior auricular adenopathy. Left side of head: No submental, submandibular, tonsillar, preauricular or posterior auricular adenopathy. Cervical: Cervical adenopathy present. Right cervical: Superficial cervical adenopathy present. Left cervical: Superficial cervical adenopathy present. Skin: General: Skin is warm. Capillary Refill: Capillary refill takes less than 2 seconds. Findings: No rash. Neurological: General: No focal deficit present. Mental Status: She is alert and oriented to person, place, and time. Cranial Nerves: No facial asymmetry. Psychiatric: Attention and Perception: Attention normal. Behavior: Behavior is cooperative. ASSESSMENT/PLAN: 1. Sore throat - ICD9: 462, ICD10: J02.9 Prolonged x 2 weeks or more No other current URI symptoms Likely is simple prolonged viral Normal throat exam Slight bilateral cervical nodes - GROUP A STREPTOCOCCUS BY PCR - PREDNISONE 10 MG TABLET - LIDOCAINE HCL 2 % MUCOSAL SOLUTION - MONOTEST, INFECTIOUS MONO Get your labs [facility] in [place] [address], [place] [address] Outpatient lab department Walk in 7am -6:30pm We will call you with results Encourage fluids, rest. Tylenol and Motrin f Try Cepocol lozenges or Chloraseptic throat spray. Warm salt water gargles. Call PCP if sx worsen or no better. If symptoms worsen, or new symptoms develop go to ER. If you have worsening of breathing or breathing changes- go to ER. If you have persistent fever unrelieved by Tylenol/Motrin- go to the ER. Follow up as needed. Pt agreeable with plan. Barriers to learning: none. The patient verbalizes understanding and is in agreement with plan of care. Barbie Moe PA-C Medical Decision Making: Problems: Moderate: Acute illness with systemic symptoms Data: Unique test(s) ordered: 2 Risk: Low: Low risk from testing/treatment Moderate: Drug management Medical Decision Making Level: 4 - Moderate I spent a total of 20 minutes on the date of the service which included preparing to see the patient, [id number] patient care, completing clinical documentation, performing a medically appropriate examination, counseling and educating the patient/family/caregiver, and ordering medications, tests, or procedures. documented in this encounter [facility] 01-05-2022 Note HNO ID: [id number] Author: Hilda Tsai APRN.TREATMENT SPECIALIST Service: ? Author Type: Nurse Practitioner Type: Progress Notes Filed: 01/05/2022 10:58 AM Note Text: This note was created using [employer]. Subjective Joie Young is a 36 year old female. HPI by patient: Joie Young is a 36 year old female presenting to the office with the complaint of viral symptoms. Started approximately 10 days prior. Associated symptoms include sinus congestion, facial pressure, left ear pain, headache, cough, shortness of breath, wheezing, sore throat, post nasal drainage. Had tubes in the ears as a child. Denies fevers, chills, body aches, nausea, vomiting, and diarrhea. Vaccinated for influenza: yes. Covid Immunization Dates Overdue - COVID-19 VACCINE (3 - Booster for Moderna series) Overdue since 01/26/2021 12/01/2020 Imm Admin: COVID-19 original vaccine, full dose, monovalent (MODERNA) 11/03/2020 Imm Admin: COVID-19 original vaccine, full dose, monovalent (MODERNA) Personal history of Covid: yes, 2019. Flu/RSV contacts: none. Strep contacts: none. Sick contacts: family. Covid + contacts: none. Travel in the last 14 days: none. Smoking history/second hand smoke: none. OTC spray, Claritin-d, flonase. Was on Ceftin and azithromycin last month for left sided ear infection. ALLERGIES Levaquin [Levofloxa* Other: See Comments Prednisone Hives Comment:Able to take- just not in high doses No family history on file. Social History Tobacco Use Smoking status: Never Smokeless tobacco: Never Alcohol use: No Drug use: No Active Ambulatory Problems No Active Ambulatory Problems Resolved Ambulatory Problems No Resolved Ambulatory Problems Past Medical History: No date: Asthma Review of Systems Constitutional: Negative. HENT: Negative. Eyes: Negative. Respiratory: Negative. Cardiovascular: Negative. Gastrointestinal: Negative. Endocrine: Negative. Genitourinary: Negative. Musculoskeletal: Negative. Skin: Negative. Neurological: Negative. Hematological: Negative. Objective BP 115/72 Pulse 89 Temp 36.4 ?C (97.5 ?F) (Temporal) Resp 16 Ht 160 cm (5' 3 ) Wt 101.2 kg (223 lb) LMP 05/15/2017 (Approximate) SpO2 97% BMI 39.50 kg/m? Physical Exam Vitals reviewed. Constitutional: General: She is not in acute distress. Appearance: She is not ill-appearing, toxic-appearing or diaphoretic. HENT: Head: Normocephalic and atraumatic. Right Ear: Tympanic membrane, ear canal and external ear normal. Left Ear: Tympanic membrane, ear canal and external ear normal. Nose: Rhinorrhea present. Right Sinus: Maxillary sinus tenderness and frontal sinus tenderness present. Left Sinus: Maxillary sinus tenderness and frontal sinus tenderness present. Mouth/Throat: Mouth: Mucous membranes are moist. Pharynx: Oropharynx is clear. No oropharyngeal exudate or posterior oropharyngeal erythema. Cardiovascular: Rate and Rhythm: Normal rate and regular rhythm. Pulmonary: Effort: Pulmonary effort is normal. Breath sounds: Normal breath sounds. Lymphadenopathy: Head: Right side of head: No submandibular or tonsillar adenopathy. Left side of head: No submandibular or tonsillar adenopathy. Cervical: Cervical adenopathy present. Right cervical: Superficial cervical adenopathy present. Left cervical: Superficial cervical adenopathy present. Psychiatric: Behavior: Behavior is cooperative. Assessment and Plan (J06.9) URI with cough and congestion (primary encounter diagnosis) Plan: amoxicillin-clavulanic acid (AUGMENTIN) 875-125 mg per tablet, Liikmbuozcasauh-Xpvdehkgl-UB (BROMFED DM) 2-30-10 mg/5 mL syrup (Z92.29) Antibiotic treatment within past 2 months Plan: Education on viral vs bacterial infections. Most viral infections will last 10 days, sometimes 14. It is possible to have back to back viral infections. An antibiotic will not treat a virus. Symptomatic for 10 days, will treat with Augmentin. Continue home testing for covid. -Drink lots of fluids and get plenty of rest. -Vaporizers, cool mist humidifiers, warm showers, and warm fluids help open respiratory and sinus passages. Clean humidifiers daily. -OTC tylenol/ibuprofen as directed on the bottle. -Saline nasal spray as needed. Flonase twice daily can help reduce inflammation through the sinus cavities. -Bromfed for cough/congestion, do not take Claritin-d with this. -Cough/deep breathing education, promote clearing of the airways and good lung expansion. -Make follow up with primary care for monitoring and resolution in symptoms. -Signs that warrant an ER evaluation: Sudden change/worsening in condition, lethargy, signs of dehydration, fever greater than 102 F that is not responding to Tylenol or ibuprofen (Motrin, Advil), drooling, difficulty swallowing, difficulty breathing, shortness of breath, chest pain, evidence of airway compromise (tripod position, neck ext (more content not included)... [facility] 01-05-2022 Instructions Hilda Tsai APRN.TREATMENT SPECIALIST - 01/05/2022 10:45 AM EDT (J06.9) URI with cough and congestion (primary encounter diagnosis) Plan: amoxicillin-clavulanic acid (AUGMENTIN) 875-125 mg per tablet, Rccccogaacsuofn-Hnegaylii-YU (BROMFED DM) 2-30-10 mg/5 mL syrup Education on viral vs bacterial infections. Most viral infections will last 10 days, sometimes 14. It is possible to have back to back viral infections. An antibiotic will not treat a virus. Symptomatic for 10 days, will treat with Augmentin. Continue home testing for covid. -Drink lots of fluids and get plenty of rest. -Vaporizers, cool mist humidifiers, warm showers, and warm fluids help open respiratory and sinus passages. Clean humidifiers daily. -OTC tylenol/ibuprofen as directed on the bottle. -Saline nasal spray as needed. Flonase twice daily can help reduce inflammation through the sinus cavities. -Bromfed for cough/congestion, do not take Claritin-d with this. -Cough/deep breathing education, promote clearing of the airways and good lung expansion. -Make follow up with primary care for monitoring and resolution in symptoms. -Signs that warrant an ER evaluation: Sudden change/worsening in condition, lethargy, signs of dehydration, fever greater than 102 F that is not responding to Tylenol or ibuprofen (Motrin, Advil), drooling, difficulty swallowing, difficulty breathing, shortness of breath, chest pain, evidence of airway compromise (tripod position, neck extension, retractions), seizures, changes in mental status, or other concerns. documented in this encounter [facility] 01-05-2022 History of Presen t illness Narrative This note was created using [employer]. Subjective Joie Young is a 36 year old female. HPI by patient: Joie Young is a 36 year old female presenting to the office with the complaint of viral symptoms. Started approximately 10 days prior. Associated symptoms include sinus congestion, facial pressure, left ear pain, headache, cough, shortness of breath, wheezing, sore throat, post nasal drainage. Had tubes in the ears as a child. Denies fevers, chills, body aches, nausea, vomiting, and diarrhea. Vaccinated for influenza: yes. Covid Immunization Dates Overdue - COVID-19 VACCINE (3 - Booster for Moderna series) Overdue since 01/26/2021 12/01/2020 Imm Admin: COVID-19 original vaccine, full dose, monovalent (MODERNA) 11/03/2020 Imm Admin: COVID-19 original vaccine, full dose, monovalent (MODERNA) Personal history of Covid: yes, 2019. Flu/RSV contacts: none. Strep contacts: none. Sick contacts: family. Covid + contacts: none. Travel in the last 14 days: none. Smoking history/second hand smoke: none. OTC spray, Claritin-d, flonase. Was on Ceftin and azithromycin last month for left sided ear infection. ALLERGIES Levaquin [Levofloxa* Other: See Comments Prednisone Hives Comment:Able to take- just not in high doses No family history on file. Social History Tobacco Use Smoking status: Never Smokeless tobacco: Never Alcohol use: No Drug use: No Active Ambulatory Problems No Active Ambulatory Problems Resolved Ambulatory Problems No Resolved Ambulatory Problems Past Medical History: No date: Asthma Review of Systems Constitutional: Negative. HENT: Negative. Eyes: Negative. Respiratory: Negative. Cardiovascular: Negative. Gastrointestinal: Negative. Endocrine: Negative. Genitourinary: Negative. Musculoskeletal: Negative. Skin: Negative. Neurological: Negative. Hematological: Negative. Objective BP 115/72 Pulse 89 Temp 36.4 C (97.5 F) (Temporal) Resp 16 Ht 160 cm (5' 3 ) Wt 101.2 kg (223 lb) LMP 05/15/2017 (Approximate) SpO2 97% BMI 39.50 kg/m Physical Exam Vitals reviewed. Constitutional: General: She is not in acute distress. Appearance: She is not ill-appearing, toxic-appearing or diaphoretic. HENT: Head: Normocephalic and atraumatic. Right Ear: Tympanic membrane, ear canal and external ear normal. Left Ear: Tympanic membrane, ear canal and external ear normal. Nose: Rhinorrhea present. Right Sinus: Maxillary sinus tenderness and frontal sinus tenderness present. Left Sinus: Maxillary sinus tenderness and frontal sinus tenderness present. Mouth/Throat: Mouth: Mucous membranes are moist. Pharynx: Oropharynx is clear. No oropharyngeal exudate or posterior oropharyngeal erythema. Cardiovascular: Rate and Rhythm: Normal rate and regular rhythm. Pulmonary: Effort: Pulmonary effort is normal. Breath sounds: Normal breath sounds. Lymphadenopathy: Head: Right side of head: No submandibular or tonsillar adenopathy. Left side of head: No submandibular or tonsillar adenopathy. Cervical: Cervical adenopathy present. Right cervical: Superficial cervical adenopathy present. Left cervical: Superficial cervical adenopathy present. Psychiatric: Behavior: Behavior is cooperative. Assessment and Plan (J06.9) URI with cough and congestion (primary encounter diagnosis) Plan: amoxicillin-clavulanic acid (AUGMENTIN) 875-125 mg per tablet, Pgepmwddbdlpfkk-Ljtxzmggk-YX (BROMFED DM) 2-30-10 mg/5 mL syrup (Z92.29) Antibiotic treatment within past 2 months Plan: Education on viral vs bacterial infections. Most viral infections will last 10 days, sometimes 14. It is possible to have back to back viral infections. An antibiotic will not treat a virus. Symptomatic for 10 days, will treat with Augmentin. Continue home testing for covid. -Drink lots of fluids and get plenty of rest. -Vaporizers, cool mist humidifiers, warm showers, and warm fluids help open respiratory and sinus passages. Clean humidifiers daily. -OTC tylenol/ibuprofen as directed on the bottle. -Saline nasal spray as needed. Flonase twice daily can help reduce inflammation through the sinus cavities. -Bromfed for cough/congestion, do not take Claritin-d with this. -Cough/deep breathing education, promote clearing of the airways and good lung expansion. -Make follow up with primary care for monitoring and resolution in symptoms. -Signs that warrant an ER evaluation: Sudden change/worsening in condition, lethargy, signs of dehydration, fever greater than 102 F that is not responding to Tylenol or ibuprofen (Motrin, Advil), drooling, difficulty swallowing, difficulty breathing, shortness of breath, chest pain, evidence of airway compromise (tripod position, neck extension, retractions), seizures, changes in mental status, or other concerns. The patient will pursue further outpatient evaluation with the primary care physician or another Urgent Care/Express Care as outlined in the after visit summary. The patient is agreeable to this plan of care and follow-up instructions have been explained in detail. The patient has received these instructions in written format and have expressed an understanding of the after visit summary. Medical Decision Making: Level: 3 - Low I spent a total of 20 minutes on the date of the service which included preparing to see the patient, [id number] patient care, completing clinical documentation, obtaining and/or reviewing separately obtained history, performing a medically appropriate examination, counseling and educating the patient/family/caregiver, and ordering medications, tests, or procedures. This patient encounter involved the screening or treatment of novel coronavirus infection (COVID-19). documented in this encounter [facility] documented in this encounter [facility]08-03-2022 Hospital Discharge instructions* Discharge Instructions* Zuleyka De Los Santos DO - 10/19/2021 1:58 PM EDT Images from the original note were not included. Discharge Instructions Call your surgeon in 1 to 2 days to schedule a follow-up appointment in 1-2 weeks. OK to shower tomorrow. Let warm soap and water wash over the incision. Do not scrub. Pat dry. OK for activity as tolerated. No lifting over 10 pounds. Wound Care: keep wound clean and dry Leave surgical dressing in place until seen in office. No driving while taking narcotic pain medications. You may take an over the counter stool softener while on narcotics for constipation as needed (colace, miralax, etc). Call your Physician or return to the Emergency Room if you experience: -New or increased pain. -New or increased bleeding. -Nausea & vomitting. -Fever & chills. -Shortness of breath. -Chest pain. -Abdominal distention. documented in this [facility] Work Phone: [phone]) 825-659907-27-2022 Hospital Discharge instructions* Discharge Instructions* Abigail Perez RN - 10/12/2021 10:36 AM EDT Shower with an antibacterial soap such as Dial or Safeguard. No makeup, deodorant, lotions, powder, body spray. Prior to surgery all jewelry and body piercings must be removed. Please bring a photo ID and insurance information No smoking, no alcohol 24 hours prior to surgery. Do NOT take the following medications on the morning of surgery: CONCERTA. TAKE the following medications the morning of your surgery: KATHIA, KLONOPIN, FLEXERIL, DROSPIRENONE, FLONASE, SERTRALINE, IF NEEDED: ASTELIN, EPI PEN, NURTEC, ZOFRAN. You may take Tylenol (Acetaminophen) if needed for pain the morning of surgery. No Motrin, Ibuprofen, or Advil 24 hours prior to surgery, or longer if instructed by your surgeon. No Aleve or Naprosyn 3 days prior to surgery, or longer if instructed by your surgeon. DO NOT take aspirin or aspirin containing products for 5 days before surgery, or longer if instructed by your surgeon. You will receive a reminder call the day before surgery with your Same Day Surgery arrival time. Follow all instructions given to you by Dr. Salinas. If you have specific questions, please call your surgeon. You may use the meteorology instructor parking located at the main entrance on [address] [facility] and take the H elevator to the first floor for same day surgery. Take a left after exiting the elevator and check in at the desk. You may use the parking in the Main deck. Take the level one bridge to the H building and follow the signs for same day surgery. Check in at the desk. * Attachments The following attachments cannot be sent through Care Everywhere. * Liver Resection: Pre-op ([place]) documented in this [facility] Work Phone: [phone]) 162-466807-21-2021 Hospital Discharge instructions* Instructions* Jonathan Rendon, - 10/06/2020 Return if any shortness of breath swelling or any concerns. Carry an EpiPen at all times. We will also give you a short course of steroids and Pepcid. * Attachments The following attachments cannot be sent through Care Everywhere. * Anaphylactic Reaction ([place]) * Video: How to Give Yourself an Epinephrine Shot ([place]) documented in this [facility] Work Phone: Evaluation note* Diagnosis Bee sting reaction, undetermined intent, initial encounter- Primary Anaphylaxis, initial encounter documented in this encounter [facility] Work Phone: Evaluation note* Diagnosis Kidney stone- Primary Calculus of kidney documented in this encounter [facility] Work Phone: Evaluation note* Diagnosis Kidney stone Calculus of kidney Hydronephrosis with urinary obstruction due to ureteral calculus documented in this encounter [facility] Work Phone: Evaluation note* Diagnosis Left renal stone documented in this encounter [facility] Work Phone: Evaluation note* Diagnosis Kidney stone Calculus of kidney Flank pain Abdominal pain, unspecified site documented in this encounter [facility] Work Phone: Evaluation note* Diagnosis Left flank pain Abdominal pain, unspecified site Renal calculus, left Calculus of kidney documented in this encounter [facility] Work Phone: [phone] note* Diagnosis Hepatic lesion Other specified disorders of liver documented in this encounter [facility] Work Phone: [phone] note* Diagnosis Hepatic lesion Other specified disorders of liver documented in this encounter [facility] Work Phone: Evaluation note* Diagnosis Endometriosis determined by laparoscopy documented in this encounter [facility] Work Phone: [phone] note* Diagnosis Liver mass, left lobe Unspecified disorder of liver documented in this encounter [facility] Work Phone: Evaluation note* Diagnosis Liver mass, left lobe Unspecified disorder of liver documented in this encounter [facility] Work Phone: Evaluation note* Diagnosis Left ovarian cyst Other and unspecified ovarian cyst documented in this encounter [facility] Work Phone: Evaluation note* Diagnosis Sore throat- Primary Acute ph[facility]itis [facility] Diagnosis Acute recurrent maxillary sinusitis- Primary Deviated nasal septum Hypertrophy of both inferior nasal turbinates documented in this encounter [facility] note* Diagnosis Abdominal pain, epigastric- Primary Acute gastritis without hemorrhage, unspecified gastritis type [facility] Diagnosis Endometriosis determined by laparoscopy- Primary Pelvic pain Cervical cancer screening Screening for malignant neoplasm of the cervix BMI 40.0-44.9, adult (HCC) documented in this encounter [facility] note* Diagnosis Endometriosis determined by laparoscopy Pelvic pain [facility] Diagnosis Endometriosis determined by laparoscopy- Primary documented in this encounter [facility] note* Diagnosis Acute recurrent maxillary sinusitis documented in this encounter [facility] note* Diagnosis Endometriosis determined by laparoscopy- Primary [facility] Diagnosis Endometriosis determined by laparoscopy- Primary [facility]* Diagnosis Acute recurrent maxillary sinusitis- Primary Deviated nasal septum Hypertrophy of both inferior nasal turbinates documented in this encounter [facility] note* Diagnosis Chronic maxillary sinusitis- Primary Nasal polyp Unspecified nasal polyp Acute recurrent maxillary sinusitis Hypertrophy of both inferior nasal turbinates Deviated nasal septum documented in this encounter [facility] note* Diagnosis BMI 38.0-38.9,adult- Primary Endometriosis determined by laparoscopy Pelvic pain Chronic maxillary sinusitis Nasal polyp, unspecified Hypertrophy of nasal turbinates Deviated nasal septum documented in this encounter [facility] note* Diagnosis Post-op pain- Primary Other acute postoperative pain Chronic maxillary sinusitis Nasal polyp, unspecified Hypertrophy of nasal turbinates Deviated nasal septum [facility]* Diagnosis Post-op pain Other acute postoperative pain documented in this encounter [facility] note* Diagnosis Postoperative follow-up- Primary Follow-up examination, following unspecified surgery documented in this encounter [facility] note* Diagnosis Postoperative follow-up- Primary Follow-up examination, following unspecified surgery documented in this encounter [facility] note* Diagnosis Postoperative follow-up- Primary Follow-up examination, following unspecified surgery Nasal dryness Other diseases of nasal cavity and sinuses [facility]* Attachments The following attachments cannot be sent through Care Everywhere. * Kidney Stone ([place]) documented in this [facility] Work Phone: Hospital Discharge instructions* Attachments The following attachments cannot be sent through Care Everywhere. * Gastritis ([place]) [facility]* Procedure Summary Procedure Name Responsible Anesthesiologist Anesthesia Start Time Anesthesia Stop Time nasal septal reconstruction with bilateral inferior turbinate reduction; functional endoscopic sinus surgery maxillary, frontal, bundle nasal/sinus endocopy, total ethmoidectomy, sphenoidotomy removal from sphenoid sinus (Bilateral: Nose) No Anesthesiologist - Fred/MD Shaun 01/09/23 0905 01/09/23 1032 Events Date Time Event Comment 01/09/2023 0852 0905 An Start 0907 In Room 0907 An Start Data 0909 An Induction The patient was reevaluated immediately before moderate or deep sedation use and before anesthesia induction. 0913 An Intubation 0913 Anesthesia Ready 0919 Proc Start 1008 An Extubation - Spontaneous ventilation - Patient suctioned - Airway removed without difficulty - Spontaneous ventilation maintained 1013 an stop data 1015 Proc Fin 1024 Out of Room 1032 An Stop Meds * Agents Name O2 N2O Air Sevoflurane * Blood No blood administrations on file. Lines, Drains, and Airways Type Details Placement Removal Wound/Incision 01/09/23; 09; Surgical; Nose; nasopore,tristan splints,gauze nasal drip pad,tape 01/09/23 0909 by Lydia Gunderson RN Peripheral IV Placement Date: 01/09/23; Placement Time: 0854; Orientation: Right; Location: Antecubital; Site Prep: Alcohol; Inserted by: LAURENCE rn; Insertion Attempts: 1; Difficult Venous Access? No; Patient Tolerance: Tolerated well; Removal Date: 01/09/23; Removal Time: 1221 01/09/23 0854 by Jeanine Gambino RN 01/09/23 122 by Dia Houston RN ETT Placement Date: 01/09/23; Placement Time: 09 (created via procedure documentation); Type: ETT - single; Single Lumen Tube Size: 7 mm; Cuffed: Yes; Placement Verification: Auscultation; Removal Date: 01/09/23; Removal Time: 1008 01/09/23 0913 by JOANNE Quiroz CRNA 01/09/23 1008 by JOANNE Quiroz CRNA documented in this encounter [facility] for referral (narrative)* Consultation (Routine) - Pending Review Specialty Diagnoses / Procedures Referred By Contac t Referred To Contact Physical Therapy Diagnoses Endometriosis determined by laparoscopy Pelvic pain Procedures [place] OFFICE/OUTPATIENT [facility] 60-74 MINUTES aMry Ann Ridley PA [address] [place] [address] [address] [place] [address] Katelyn Coto PT Referral ID Status Reason Start Date Expiration Date Visits Requested Visits Authorized [id number] Pending Review Specialty Services Required 06/29/2022 06/29/2023 99 99 * Consultation (Routine) - Authorized Specialty Diagnoses / Procedures Referred By Contac t Referred To Contact Obstetrics and Gynecology Diagnoses Cervical cancer screening Procedures [place] OFFICE/OUTPATIENT [facility] 60-74 MINUTES Mary Ann Ridley PA [address] [place] [address] [facility] [address] [place] [address] Referral ID Status Reason Start Date Expiration Date Visits Requested Visits Authorized [id number] Authorized Specialty Services Required 06/29/2022 06/29/2023 1 1 [facility] Summary Purpose Family History No Family History Records FoundNo Family History Records FoundNo Family History Records FoundNo Family History Records FoundNo Family History Records FoundNo Family History Records Found Advance Directives Documents on File Type Date Recorded Patient Tan Room Supervisor Expl anation ACP-Advance Directive ACP-Power of Lumber Stacker Operator Documents on File Type Date Recorded Patient Tan Room Supervisor Expl anation ACP-Advance Directive ACP-Power of Lumber Stacker Operator Latest Code Status on File Code Status Date Activated Date Inactivated Comments Full Code 10/19/2021 10:33 AM Latest Code Status on File Code Status Date Activated Date Inactivated Comments Full Code 10/19/2021 10:33 AM 10/19/2021 7:37 PM Latest Code Status on File Code Status Date Activated Date Inactivated Comments Full Code 10/19/2021 10:33 AM 10/19/2021 7:37 PM Reason for Referral Status Reason Specialty Diagnoses / Procedures Referre d By Contact Referred To Contact Open Radiology Diagnoses Kidney stone Hydronephrosis with urinary obstruction due to ureteral calculus Procedures US RETROPERITONEAL COMPLETE Tg Quinones, DO [address] [place] [address] Specialty Diagnoses / Procedures Referred By Contac t Referred To Contact Radiology Diagnoses Left renal stone Procedures US RETROPERITONEAL COMPLETE StacieYamileth herreraTg A, DO [address] [place] [address] Referral ID Status Reason Start Date Expiration Date Visits Re quested Visits Authorized [id number] Open 07/21/2021 07/21/2022 1 1 Specialty Diagnoses / Procedures Referred By Contac t Referred To Contact Radiology Diagnoses Left flank pain Renal calculus, left Procedures CT Abdomen Pelvis Wo Contrast Noemi Slater, FAMILY LAWYER - TREATMENT SPECIALIST [address] [place] [address] Referral ID Status Reason Start Date Expiration Date V isits Requested Visits Authorized [id number] Authorized 07/26/2021 09/09/2021 1 1 Specialty Diagnoses / Procedures Referred By Contac t Referred To Contact Radiology Diagnoses Hepatic lesion Procedures MRI ABDOMEN W WO CONTRAST Amarilis Loya, FAMILY LAWYER - TREATMENT SPECIALIST [address] [place] [address] Referral ID Status Reason Start Date Expiration Date Visits Re quested Visits Authorized [id number] Closed 08/05/2021 08/05/2022 1 1 Specialty Diagnoses / Procedures Referred By Contac t Referred To Contact Radiology Diagnoses Left ovarian cyst Procedures US NON OB TRANSVAGINAL Talisha Estevez MD [address] [place] [address] Referral ID Status Reason Start Date Expiration Date V isits Requested Visits Authorized [id number] Pending Review 01/07/2022 01/07/2023 1 1 Specialty Diagnoses / Procedures Referred By Contac t Referred To Contact Radiology Diagnoses Acute recurrent maxillary sinusitis Procedures CT maxillofacial wo IV contrast Jenny Littlejohn MD [address] [place] [address] Referral ID Status Reason Start Date Expiration Date V isits Requested Visits Authorized [id number] Pending Review 06/20/2022 12/17/2022 1 1 Referral ID Status Reason Start Date Expiration Date Visits Re quested Visits Authorized [id number] Closed 06/20/2022 12/17/2022 1 1 Specialty Diagnoses / Procedures Referred By Contac t Referred To Contact Diagnoses Post-op pain Jenny Littlejohn MD [address] [place] [address] Referral ID Status Reason Start Date Expiration Date V isits Requested Visits Authorized [id number] Pending Review 1 1 Referral ID Status Reason Start Date Expiration Date V isits Requested Visits Authorized [id number] Pending Review 1 1 Additional Source Comments INFORMATION SOURCE (unrecogn ized section and content) DATE CREATED AUTHOR AUTHOR'S ORGANIZ ATION 12/17/2021 [facility] DATE CREATED AUTHOR AUTHOR'S ORGANIZ ATION 01/11/2022 [facility] DATE CREATED AUTHOR AUTHOR'S ORGANIZ ATION 04/28/2022 [facility] DATE CREATED AUTHOR AUTHOR'S ORGANIZ ATION 10/12/2022 [facility] DATE CREATED AUTHOR AUTHOR'S ORGANIZ ATION 02/15/2023 [facility] Reason for Visit (unrecogniz ed section and content) Specialty Diagnoses / Procedures Referred By Contac t Referred To Contact Physical Therapy Diagnoses Endometriosis determined by laparoscopy Pelvic pain Procedures [place] OFFICE/OUTPATIENT [facility] 60-74 MINUTES Mary Ann Ridley PA [address] [place] [address] Katelyn Coto, PT Referral ID Status Reason Start Date Expiration Date Visits Requested Visits Authorized [id number] Authorized Specialty Services Required 06/29/2022 06/29/2023 40 40 Reason Comments Insect Bite Reason Comments Flank Pain Reason Comments Viral Syndrome Symptoms started 10 days ago Reason Comments S[facility] , [facility] week throat has been red and swollen Reason Comments New Patient Recurrent sinus infe ctions. Left ear pain. Reason Comments Abdominal Pain Reason Comments Follow-up Yearly check- still having slight pelvic pain. Pap? Reason Comments PT Initial Eval Pelvic Health Specialty Diagnoses / Procedures Referred By Contac t Referred To Contact Radiology Diagnoses Acute recurrent maxillary sinusitis Procedures CT maxillofacial wo IV contrast Jenny Littlejohn MD [address] [place] [address] Referral ID Status Reason Start Date Expiration Date Visits Re quested Visits Authorized [id number] Closed 06/20/2022 12/17/2022 1 1 Specialty Diagnoses / Procedures Referred By Contac t Referred To Contact Physical Therapy Diagnoses Endometriosis determined by laparoscopy Pelvic pain Procedures [place] OFFICE/OUTPATIENT [facility] 60-74 MINUTES Mary Ann Ridley PA [address] [place] [address] Katelyn Coto, PT Reason Comments Follow-up CT results Reason Comments Follow-up Sinus - changes note d over the last week with ear pain and sinus pressure Reason Comments Pelvic Pain 6 month FU; 50% impr ovement with PT Specialty Diagnoses / Procedures Referred By Contac t Referred To Contact Diagnoses Chronic maxillary sinusitis Nasal polyp, unspecified Hypertrophy of nasal turbinates Deviated nasal septum Chronic maxillary sinusitis [J32.0] Nasal polyp, unspecified [J33.9] Hypertrophy of nasal turbinates [J34.3] Deviated nasal septum [J34.2] Procedures [place] SEPTOPLASTY/SUBMUCOUS RESECJ W/WO CARTILAGE GRF [place] SUBMUCOUS RESCJ INFERIOR TURBINATE PRTL/COMPL [place] NASAL/SINUS NDSC TOT W/SPHENDT W/SPHEN TISS RMVL nasal septal reconstruction with bilateral inferior turbinate reduction; functional endoscopic sinus surgery maxillary, frontal, bundle nasal/sinus endocopy, total ethmoidectomy, sphenoidotomy removal from sphenoid sinus SUBMUCOUS RESECTION INFERIOR TURBINATE NASAL SINUS ENDOCOPY TOTAL INCLUDING SPHENOIDOTOMY WITH REMOVAL TISSUE FROM SPHENOID SINUS Jenny Littlejohn MD [address] [place] [address] [place] [address] Referral ID Status Reason Start Date Expiration Date Visits Re quested Visits Authorized [id number] 1 7 Reason Comments Follow-up NSR/FESS Reason Comments Follow-up One week Reason Comments Follow-up Four weeks Ordered Prescriptions (unrec ognized section and content) Prescription Sig Dispensed Refills Start Date End Da te ondansetron (ZOFRAN) 4 MG tablet Take 1 tablet by mouth every 8 hours as needed for Nausea 20 tablet 0 12/19/2020 HYDROcodone-acetaminophe n (NORCO) 5-325 MG per tabletIndications:Kidney stone Take 1 tablet by mouth every 6 hours as needed for Pain for up to 5 days. Intended supply: 3 days. Take lowest dose possible to manage pain 24 tablet 0 12/19/2020 12/24/2020 Prescription Sig Dispensed Refills Start Date End Da te oxyCODONE-acetaminophen (PERCOCET) 5-325 MG per tabletIndications:Liver mass, left lobe Take 1 tablet by mouth every 6 hours as needed for Pain for up to 3 days. Intended supply: 3 days. Take lowest dose possible to manage pain 12 tablet 0 10/19/2021 10/22/2021 Scheduled Active and Recently Administ ered Medications (unrecognized section and content) Scheduled Medication Order 12/17/2020 12/18/2020 12/19/2020 0.9 % sodium chloride bolus (COMPLETED) 1,000 mL, IntraVENous, at 2,000 mL/hr, Administer over 0.5 Hours, ONCE, On 12/19/20 at 0339, For 1 dose 0347 (New Bag - Prov ider: Faviola Tucker RN)0520 (Stopped - Provider: Faviola Tucker RN) ketorolac (TORADOL) injection 30 mg (COMPLETED) 30 mg, IntraVENous, ONCE, On 12/19/20 at 0339, For 1 dose, Do not administer for more than 5 days. 034 (Given - Provid er: Faviola Tucker RN) ondansetron (ZOFRAN) injection 4 mg (COMPLETED) 4 mg, IntraVENous, ONCE, On 12/19/20 at 0339, For 1 dose 034 (Given - Provid er: Faviola Tucker RN) sodium chloride flush 0.9 % injection 3 mL(Linked Group 1) 3 mL, IntraVENous, EVERY 8 HOURS, First dose on 12/19/20 at 0339, Flush line with 3-5 mL 338 (Due)1139 (Due) 193 (Due) Linked Groups Order Group 1: Saline lock IV (COMPLETED) Routine, CONTINUOUS, Starting on 12/19/20 at 0345, Until Specified And sodium chloride flush 0.9 % injection 3 mLJump to med 3 mL, IntraVENous, EVERY 8 HOURS, First dose on 12/19/20 at 0339
Flush line with 3-5 mL
Scheduled Medication Order 10/17/2021 10/18/2021 10/19/2021 acetaminophen (TYLENOL) tablet 1,000 mg (COMPLETED) 1,000 mg, Oral, ONCE, 1 dose, On Sun10/19/21 at 1100, Maximum dose of acetaminophen is 4000 mg from all sources in 24 hours. Do not administer if patient has taken tylenol <4 hours earlier. Do not give if contraindicated ie. patient has active liver disease or cirrhosis., Pre-op (day of surgery) 1058 (Given - Provid er: Isatu Patel RN) famotidine (PEPCID) tablet 20 mg (COMPLETED) 20 mg, Oral, ONCE, 1 dose, On Sun10/19/21 at 1100, Pre-op (day of surgery) 1058 (Given - Provid er: Isatu Patel RN) gabapentin (NEURONTIN) capsule 100 mg (COMPLETED) 100 mg, Oral, ONCE, 1 dose, On Sun10/19/21 at 1100, For Age >69, or Low GFR, Pre-op (day of surgery) 1058 (Given - Provid er: Isatu Patel RN) sodium chloride flush 0.9 % injection 5-40 mL 5-40 mL, IntraVENous, EVERY 12 HOURS SCHEDULED (2 times per day), First dose on Sun10/19/21 at 1100, Until Discontinued, For Line Patency: Peripheral IV = 5 mL; Midline or Central Line = 10 mL/lumen. If following IV push medication, administer flush at same rate as the IV push. Flush volume is determined by type of infusion therapy being given. For non-viscous solutions use: Peripheral IV = 5 mL Midline or Central Line = 10 mL/lumen For viscous solutions (i.e. blood components, parenteral nutrition, contrast media, or after obtaining blood sample) use: Peripheral IV = 10 mL Midline or Central Line = 20 mL/lumen, Pre-op (day of surgery) 1100 (Due)2100 (Due) sodium chloride flush 0.9 % injection 5-40 mL 5-40 mL, IntraVENous, EVERY 12 HOURS SCHEDULED (2 times per day), First dose on Sun10/19/21 at 2100, Until Discontinued, For Line Patency: Peripheral IV = 5 mL; Midline or Central Line = 10 mL/lumen. If following IV push medication, administer flush at same rate as the IV push. Flush volume is determined by type of infusion therapy being given. For non-viscous solutions use: Peripheral IV = 5 mL Midline or Central Line = 10 mL/lumen For viscous solutions (i.e. blood components, parenteral nutrition, contrast media, or after obtaining blood sample) use: Peripheral IV = 10 mL Midline or Central Line = 20 mL/lumen, PACU only 2100 (Due) Continuous Medication Order 10/17/2021 10/18/2021 10/19/2021 lactated ringers infusion IntraVENous, at 50 mL/hr, CONTINUOUS, Starting on Sun10/19/21 at 1100, Upon admission to sameday - please start iv if patient does not have iv access. Use 500ml NS for patients on dialysis., Pre-op (day of surgery) 1058 (New Bag - Prov ider: Isatu Patel RN) lactated ringers infusion IntraVENous, at 50 mL/hr, CONTINUOUS, Starting on Sun10/19/21 at 1400, PACU only 1400 (Due) PRN Medication Order 10/17/2021 10/18/2021 10/19/2021 0.9 % sodium chloride bolus 500 mL (4.97 mL/kg), IntraVENous, at 1,000 mL/hr, Administer over 0.5 Hours, PRN, Anti-nausea, Starting on Sun10/19/21 at 1337, PACU only 0.9 % sodium chloride infusion IntraVENous, at 5-250 mL/hr, PRN, if patient receiving piggyback infusions and maintenance fluids are not ordered OR KVO fluids to protect IV site / prevent frequent line interruptions/ long duration, Starting on Sun10/19/21 at 1032, For piggyback infusion, administer at same rate as piggyback for a total of 25 mL. Enter 25 mL into dose field and piggyback rate into rate field of order. If piggyback is infusing at a rate less than 100 mL/hr, enter 25 mL into dose field and 100 mL/hr into rate field of order. For KVO fluids, enter rate of 20 mL/hr or less into rate field of order., Pre-op (day of surgery) 0.9 % sodium chloride infusion IntraVENous, at 240 mL/hr, Administer over 10 Minutes, PRN, blood administration, Starting on Sun10/19/21 at 1033, For 1 dose, For use in priming line prior to transfusion (prime via gravity) and flush line post transfusion ONLY. Discontinue once line has been cleared of remaining blood product. 0.9 % sodium chloride infusion IntraVENous, at 5-250 mL/hr, PRN, if patient receiving piggyback infusions and maintenance fluids are not ordered OR KVO fluids to protect IV site / prevent frequent line interruptions/ long duration, Starting on Sun10/19/21 at 1033, For piggyback infusion, administer at same rate as piggyback for a total of 25 mL. Enter 25 mL into dose field and piggyback rate into rate field of order. If piggyback is infusing at a rate less than 100 mL/hr, enter 25 mL into dose field and 100 mL/hr into rate field of order. For KVO fluids, enter rate of 20 mL/hr or less into rate field of order., Pre-op (day of surgery) ALPRAZolam (NIRAVAM) dissolvable tablet 0.25 mg 0.25 mg, Oral, PRN, Starting on Sun10/19/21 at 1033, Until Discontinued, Anxiety, Pre-op (day of surgery) diphenhydrAMINE (BENADRYL) injection 12.5 mg 12.5 mg, IntraVENous, ONCE PRN, 1 dose, Starting on Sun10/19/21 at 1337, Until Sun10/19/21 at 2359, Itching, PACU only hydrALAZINE (APRESOLINE) injection 5 mg(Linked Group 1) 5 mg, IntraVENous, EVERY 10 MIN PRN, 2 doses, Starting on Sun10/19/21 at 1337, Until Discontinued, High Blood Pressure, for SBP greater than 160 mmHg for 2 consecutive measurements taken from different sites, PRN for SBP > 160 for 2 consecutive measurements, and if one of the following conditions is met: 1) If IV labetolol is ineffective. 2) If HR is under 60. 3) If patient has heart block, COPD or asthma. If both labetalol and hydralazine ineffective, notify anesthesiologist. for use Sameday and, PACU only HYDROmorphone (DILAUDID) injection 0.25 mg HYDROmorphone (DILAUDID) 1.5mg IV is equivalent to morphine 10mg IV, 0.25 mg, IntraVENous, EVERY 5 MIN PRN, 4 doses, Starting on Sun10/19/21 at 1337, Until Discontinued, Pain Moderate (4-6), Phase I - Initial therapy for moderate pain. Restricted to a 90 minute time frame starting when the patient can verbally state their pain score., PACU only HYDROmorphone (DILAUDID) injection 0.5 mg HYDROmorphone (DILAUDID) 1.5mg IV is equivalent to morphine 10mg IV, 0.5 mg, IntraVENous, EVERY 5 MIN PRN, 4 doses, Starting on Sun10/19/21 at 1337, Until Discontinued, Pain Severe (7-10), Phase I - Initial therapy for severe pain. Restricted to a 90 minute time frame starting when the patient can verbally state their pain score., PACU only 1402 (Given - Provid er: Mita Grove RN)1436 (Given - Provider: Mita Grove RN) labetalol (NORMODYNE;TRANDATE) injection 5 mg(Linked Group 1) 5 mg, IntraVENous, EVERY 10 MIN PRN, 2 doses, Starting on Sun10/19/21 at 1337, Until Discontinued, High Blood Pressure, for SBP greater than 160 mmHg for 2 consecutive measurements taken from different sites., PRN for SBP >160 for 2 consecutive measurements, if HR is 60 or greater. If beta khloe is contraindicated (HR less than 60, heart block, COPD or asthma) use hydralazine IV order. for use Sameday and, PACU only lidocaine 1 % injection 1 mL 1 mL, IntraDERmal, ONCE PRN, 1 dose, Starting on Sun10/19/21 at 1032, Until Sun10/19/21 at 2359, IV start, Pre-op (day of surgery) meperidine (DEMEROL) injection 12.5 mg 12.5 mg, IntraVENous, EVERY 5 MIN PRN, 4 doses, Starting on Sun10/19/21 at 1337, Until Discontinued, Shivering, , May give every 5 minutes to max of 50mg., PACU only ondansetron (ZOFRAN) injection 4 mg (COMPLETED) 4 mg, IntraVENous, ONCE PRN, 1 dose, Starting on Sun10/19/21 at 1337, Until Sun10/19/21 at 2359, Nausea, Initial antiemetic therapy., PACU only 1417 (Given - Provid er: Mita Grove RN) oxyCODONE (ROXICODONE) immediate release tablet 10 mg (COMPLETED) 10 mg, Oral, PRN, 1 dose, Starting on Sun10/19/21 at 1337, Until Sun10/19/21 at 2359, Pain Severe (7-10), PHASE II, PACU only 1510 (Given - Provid er: Mita A. Maine, RN) sodium chloride flush 0.9 % injection 5-40 mL 5-40 mL, IntraVENous, PRN, Starting on Sun10/19/21 at 1032, Until Discontinued, Line Care, After every IV line use, For Line Patency: Peripheral IV = 5 mL; Midline or Central Line = 10 mL/lumen. If following IV push medication, administer flush at same rate as the IV push. Flush volume is determined by type of infusion therapy being given. For non-viscous solutions use: Peripheral IV = 5 mL Midline or Central Line = 10 mL/lumen For viscous solutions (i.e. blood components, parenteral nutrition, contrast media, or after obtaining blood sample) use: Peripheral IV = 10 mL Midline or Central Line = 20 mL/lumen, Pre-op (day of surgery) sodium chloride flush 0.9 % injection 5-40 mL 5-40 mL, IntraVENous, PRN, Starting on Sun10/19/21 at 1033, Until Discontinued, Line Care, After every IV line use, For Line Patency: Peripheral IV = 5 mL; Midline or Central Line = 10 mL/lumen. If following IV push medication, administer flush at same rate as the IV push. Flush volume is determined by type of infusion therapy being given. For non-viscous solutions use: Peripheral IV = 5 mL Midline or Central Line = 10 mL/lumen For viscous solutions (i.e. blood components, parenteral nutrition, contrast media, or after obtaining blood sample) use: Peripheral IV = 10 mL Midline or Central Line = 20 mL/lumen, Pre-op (day of surgery) sodium chloride flush 0.9 % injection 5-40 mL 5-40 mL, IntraVENous, PRN, Starting on Sun10/19/21 at 1337, Until Discontinued, Line Care, After every IV line use, For Line Patency: Peripheral IV = 5 mL; Midline or Central Line = 10 mL/lumen. If following IV push medication, administer flush at same rate as the IV push. Flush volume is determined by type of infusion therapy being given. For non-viscous solutions use: Peripheral IV = 5 mL Midline or Central Line = 10 mL/lumen For viscous solutions (i.e. blood components, parenteral nutrition, contrast media, or after obtaining blood sample) use: Peripheral IV = 10 mL Midline or Central Line = 20 mL/lumen, PACU only Linked Groups Order Group 1: labetalol (NORMODYNE;TRANDATE) injection 5 mgJump to med 5 mg, IntraVENous, EVERY 10 MIN PRN, 2 doses, Starting on Sun10/19/21 at 1337, Until Discontinued, High Blood Pressure, for SBP greater than 160 mmHg for 2 consecutive measurements taken from different sites.
PRN for SBP >160 for 2 consecutive measurements, if HR is 60 or greater. If beta khloe is contraindicated (HR less than 60, heart block, COPD or asthma) use hydralazine IV order. for use Same and
PACU only Or hydrALAZINE (APRESOLINE) injection 5 mgJump to med 5 mg, IntraVENous, EVERY 10 MIN PRN, 2 doses, Starting on Sun10/19/21 at 1337, Until Discontinued, High Blood Pressure, for SBP greater than 160 mmHg for 2 consecutive measurements taken from different sites
PRN for SBP > 160 for 2 consecutive measurements, and if one of the following conditions is met: 1) If IV labetolol is ineffective. 2) If HR is under 60. 3) If patient has heart block, COPD or asthma. If both labetalol and hydralazine ineffective, notify anesthesiologist. for use and
PACU only Scheduled Medication Order 06/20/2022 06/21/2022 06/22/2022 famotidine (Pepcid) injection 20 mg (COMPLETED) 20 mg, IntraVENous, Administer over 2 Minutes, Once, On Marielle 06/22/22 at 0920, For 1 dose, IV Push over minimum of 2 minutes - Dilute with 10 mL NS 0936 (Given - Provid er: Ijeoma Benton RN) ondansetron (Zofran) injection 4 mg (COMPLETED) 4 mg, IntraVENous, Once, On Marielle 06/22/22 at 0920, For 1 dose 0936 (Given - Provid er: Ijeoma Benton RN) sodium chloride 0.9 % bolus 1,000 mL (COMPLETED) 1,000 mL, IntraVENous, at 1,000 mL/hr, Administer over 1 Hours, Once, On Marielle 06/22/22 at 0920, For 1 dose 0936 (New Bag - Prov ider: Ijeoma Benton, RN)1036 (Stopped - Provider: Ijeoma Benton RN) Care Teams (unrecognized sec tion and content) Manager Business Process Relationship Specialty Start Date End Date [place] [address] PCP - General Nurse Practitioner 07/07/21 Manager Business Process Relationship Specialty Start Date End Date Christen Martí[place] [address] PCP - General Nurse Practitioner 07/07/21 Manager Business Process Relationship Specialty Start Date End Date Christen Martí[place] [address] PCP - General Nurse Practitioner 07/07/21 Manager Business Process Relationship Specialty Start Date End Date Christen [place] [address] PCP - General Nurse Practitioner 07/07/21 Manager Business Process Relationship Specialty Start Date End Date Christen [place] [address] PCP - General Nurse Practitioner 07/07/21 Manager Business Process Relationship Specialty Start Date End Date Christen Martí[place] [address] PCP - General Nurse Practitioner 07/07/21 Manager Business Process Relationship Specialty Start Date End Date Christen [place] [address] PCP - General Nurse Practitioner 07/07/21 Manager Business Process Relationship Specialty Start Date End Date Christen [place] [address] PCP - General Nurse Practitioner 07/07/21 Manager Business Process Relationship Specialty Start Date End Date Christen Martínez [address] [place] [address] PCP - General Nurse Practitioner 07/07/21 Manager Business Process Relationship Specialty Start Date End Date [place] [address] PCP - General Nurse Practitioner 07/07/21 Manager Business Process Relationship Specialty Start Date End Date [place]en [place] [address] PCP - General Nurse Practitioner 07/07/21 Manager Business Process Relationship Specialty Start Date End Date Jagdish Martínezjodi Agustin, FAMILY LAWYER.TREATMENT SPECIALIST PCP - General Family Medicine 02/04/16 Manager Business Process Relationship Specialty Start Date End Date Christen Martínez, FAMILY LAWYER.TREATMENT SPECIALIST [address] [phone] PCP - General Family Medicine 02/04/16 Manager Business Process Relationship Specialty Start Date End Date [place] [address] PCP - General 07/07/21 Tg uQinones, DO [address] [place] [address] Surgeon Urology 02/20/22 Manager Business Process Relationship Specialty Start Date End Date [place] [address] PCP - General 07/07/21 Tg Quinones, DO [address] [place] [address] Surgeon Urology 02/20/22 Manager Business Process Relationship Specialty Start Date End Date Christen Martínez [address] [place] [address] PCP - General 07/07/21 Stacie, Tg A, DO [address] [place] [address] Surgeon Urology 02/20/22 Manager Business Process Relationship Specialty Start Date End Date Christen Martínez [address] [place] [address] PCP - General 07/07/21 Stacie, Tg A, DO [address] [place] [address] Surgeon Urology 02/20/22 Manager Business Process Relationship Specialty Start Date End Date Christen Martínez [address] [place] [address] PCP - General 07/07/21 Stacie, Tg A, DO [address] [place] [address] Surgeon Urology 02/20/22 Manager Business Process Relationship Specialty Start Date End Date Christen Martínez [address] [place] [address] PCP - General 07/07/21 Stacie, Tg A, DO [address] [place] [address] Surgeon Urology 02/20/22 Manager Business Process Relationship Specialty Start Date End Date Christen Martínez [address] [place] [address] PCP - General 07/07/21 Stacie, Tg A, DO [address] [place] [address] Surgeon Urology 02/20/22 Manager Business Process Relationship Specialty Start Date End Date Christen Martínez [address] [place] [address] PCP - General 07/07/21 Tg Quinones DO [address] [place] [address] Surgeon Urology 02/20/22 Manager Business Process Relationship Specialty Start Date End Date Christen Martínez [address] [place] [address] PCP - General 07/07/21 Tg Quinones DO [address] [place] [address] Surgeon Urology 02/20/22 Manager Business Process Relationship Specialty Start Date End Date Christen Martínez [address] [place] [address] PCP - General 07/07/21 Tg Quinones DO [address] [place] [address] Surgeon Urology 02/20/22 Manager Business Process Relationship Specialty Start Date End Date Christen Martínez [address] [place] [address] PCP - General 07/07/21 Tg Quinones DO [address] [place] [address] Surgeon Urology 02/20/22 Manager Business Process Relationship Specialty Start Date End Date Christen Martínez [address] [place], [place] [address] PCP - General 07/07/21 Tg Quinones DO [address] [place] [address] Surgeon Urology 02/20/22 Manager Business Process Relationship Specialty Start Date End Date Christen Martínez [address] [place], [place] [address] PCP - General 07/07/21 Tg Quinones DO [address] [place], [place] [id number] Surgeon Urology 02/20/22 Manager Business Process Relationship Specialty Start Date End Date Crhisten Martínez [address] [place] [address] PCP - General 07/07/21 Tg Quinones DO [address] [place] [address] Surgeon Urology 02/20/22 Manager Business Process Relationship Specialty Start Date End Date Christen Martínez [address] [place] [address] PCP - General 07/07/21 Tg Quinones DO [address] [place] [address] Surgeon Urology 02/20/22 Manager Business Process Relationship Specialty Start Date End Date Christen Martínez [address] [place] [address] PCP - General 07/07/21 Tg Quinones DO [address] [place] [address] Surgeon Urology 02/20/22 Manager Business Process Relationship Specialty Start Date End Date Christen Martínez [address] [place] [address] PCP - General 07/07/21 Tg Quinones DO [address] [place] [address] Surgeon Urology 02/20/22 Source Comments (unrecognize d section and content) In the event this informatio n is protected by the Federal Confidentiality of Alcohol and Drug Abuse Patient Records regulations: The Federal rules restrict any use of the information to criminally investigate or prosecute any alcohol or drug abuse patient.[facility] the event this information is protected by the Federal Confidentiality of Alcohol and Drug Abuse Patient Records regulations: The Federal rules restrict any use of the information to criminally investigate or prosecute any alcohol or drug abuse patient.[facility] FOR RECORDS PERTAINING TO PATIENTS WHO ARE OR HAVE BEEN ENROLLED IN A CHEMICAL DEPENDENCY/SUBSTANCEABUSE PROGRAM, SOME INFORMATION MAY BE OMITTED. This clinical summary was aggregated from multiple sources. Caution should be exercised in using it in the provision of clinical care. This summary normalizes information from multiple sources, and as a consequence, information in this document may materially change the coding, format and clinical context of patient data. In addition, data may be omitted in some cases. CLINICAL DECISIONS SHOULD BE BASED ON THE PRIMARY CLINICAL RECORDS. [facility]. provides no warranty or guarantee of the accuracy or completeness of information in this document.
== END | disposition home or self-care (01) ==
PROVIDERS: Visit Provider Nurse Practitioner
DX: N20.0 Calculus of kidney (principal)
CPT/HCPCS: 87086

== ENCOUNTER → 2023-09-05 | Outpatient (CLI) | payer OTHER, SELFPAY ==
[2023-09-05 20:58] LABS: Absolute Lymphocyte Count 2.84 X10^3/uL (0.83-4.51); Absolute Neutrophil Count 3.1 X10^3/uL (2.0-7.7); Basophil# 0.03 X10^3/uL; Basophil% 0.4 % (0-1); Eosinophil# 0.22 X10^3/uL; Eosinophils% 3.3 % (0-5); Hemoglobin 12.6 g/dL (12.0-15.0); Lymphocyte # 2.84 X10^3/ul (0.83-4.51); Mean Corp Hgb Conc 31.5 g/dL (32-36); Mean Corpuscular Volume 85.7 fL (81-99); Mean Platelet Vol. 10.2 fl (6.2-12.0); Monocyte# 0.52 X10^3/uL; Monocyte% 7.7 % (0-10); NRBC Flagged by Analyzer 0 % (0-5); Neutrophil # 3.14 X10^3/uL (2.7-7.7); Neutrophil % 46.5 % (47-70); Platelet Count 275 K/mm3 (150-450); RBC Distribution Width SD 39.6 fl (35.1-43.9); Red Blood Count 4.67 M/mm3 (4.2-5.4); White Blood Count 6.8 K/mm3 (4.4-11.0)
[2023-09-05 21:22] LABS: ALB/GLOB Ratio 1.1 RATIO (0.9-2.4); AST(SGOT) 10 U/L (15-37); Alanine Aminotransfer ALT/SGPT 25 U/L (13-56); Albumin, Serum 3.7 g/dL (3.2-5.0); Alkaline Phosphatase 62 U/L (45-117); Anion Gap 6 (5-15); BUN 11 mg/dL (7-18); BUN/Creat Ratio 18.4 RATIO (10-20); CRP, High Sensitivity Cardiac 8.27 mg/L; Calcium,Total 8.7 mg/dL (8.5-10.1); Chloride 106 mmol/L (98-107); EST Glomerular Filtration Rate 121 mL/min (>60); Est Glom Filt Rate - Afr Amer 146 mL/min (>60); Globulin 3.4 g/dL (2.2-4.2); Glucose 99 mg/dL (74-106); Potassium 3.6 mmol/L (3.5-5.1); Protein, Total 7.1 g/dL (6.4-8.2); Sodium Level 140 mmol/L (136-145); Thyroid Stim Hormone (TSH) 1.07 uIU/mL (0.358-3.74); Troponin-I HS < 3 pg/mL (3.0-54.0)
[2023-09-08 05:08] LABS: EBV Acute VCA IgM < 36.0 U/mL (0.0-35.9); EBV Nuclear Antigen IgG > 600.0 U/mL (0.0-17.9)
== END | disposition home or self-care (01) ==
PROVIDERS: Referring Provider Nurse Practitioner; Visit Provider Nurse Practitioner
DX: R07.9 Chest pain, unspecified (principal); R42 Dizziness and giddiness; R11.0 Nausea; R53.83 Other fatigue
CPT/HCPCS: 80053; 84443; 84484; 85025; 86141; 86664; 86665

== ENCOUNTER → 2023-10-24 | Outpatient (CLI) | payer OTHER, SELFPAY ==
[2023-10-24 11:25] LABS: Cholesterol 153 mg/dL (200); High Density Lipoprotein 52 mg/dL; Triglycerides 127 mg/dL; Very Low Density Lipoprotein 25 mg/dL (5-40)
== END | disposition home or self-care (01) ==
LOC: LAB 09:46
PROVIDERS: Referring Provider Internal Medicine Cardiovascular Disease; Visit Provider Internal Medicine Cardiovascular Disease
DX: R07.9 Chest pain, unspecified (principal)
CPT/HCPCS: 36415; 80061

== ENCOUNTER → 2023-11-15 | Outpatient (CLI) | payer OTHER, SELFPAY ==
--- NOTE | 2023-11-15 10:37 | STEWCON_ITS ---
Reason For Study: Chest Pain Stress Results Protocol: Emmett Protocol WITH DEFINITY Maximum Predicted HR: 184 bpm Target HR: 156 bpm % Maximum Predicted HR: 85 % DurationHeart Rate Stage (mm:ss) (bpm) BP Comment Baseline 88 112/72No Chest Pain; 2.5 ML Definity Emmett Protocol Stage I 3:00 127 122/68No Chest Pain Emmett Protocol Stage II 3:00 137 144/66No Chest Pain; Mild Dyspnea Emmett Protocol Stage III 2:00 157 158/64No Chest Pain; Moderate Dyspnea Recovery 102 114/70No Chest Pain; No Dyspnea Stress Duration: 8:00 mm:ss Maximum Stress HR: 157 bpm METS: 10 Baseline Echocardiogram Findings Stress Echo Wall motion Data Resting WM Intermediate WM Stress WM ECHO/Stress Test Echo W/Contrast Interpretation Summary Exercise stress echo. 38-year-old lady with a history of chest pain. Resting EKG demonstrates sinus rhythm with a rate of 88 bpm. Regular blood pres sure is 112/72 mmHg. The patient exercised according to the regular Emmett protocol for total duratio n of 8 minutes. The maximum heart rate attained was 157 bpm which was 85% of max impacted heart rat e the maximum workload was 10.1 metabolic equivalents. At rest there were no ST or T wave julien nges noted suggest ischemia and at peak exercise upsloping ST changes only were noted with did not meet the criteria for ischemia. The peak blood pressure was noted to be 158/64 which was a good b lood pressure response to exercise. Stress echocardiogram. Resting echocardiogram was performed with Definity enhan cement demonstrating ejection fraction of 55% no wall motion abnormalities were noted. At peak exerc ise there was thickening of all rainey or reduction of the ventricular cavity size and peaking of ejection fraction at 70%. No chest pain was noted. Conclusion: Exercise stress echocardiogram with no evidence of ischemia at high workload. Ordering Physician: Stephane Campbell Referring Physician: Stephane Campbell Performed By: Melanie Pedersen RCS
== END | disposition home or self-care (01) ==
PROVIDERS: Referring Provider Internal Medicine Cardiovascular Disease; Visit Provider Internal Medicine Cardiovascular Disease
DX: R07.9 Chest pain, unspecified (principal)
CPT/HCPCS: 93017; 93350; Q9957; A4216; C8928